=== PATIENT | male | born 1930 | race Caucasian/White ===

== ENCOUNTER → 2016-10-16 | Outpatient (CLI) | payer MEDICARE ==
--- NOTE | 2016-10-16 13:51 | US ---
EXAMINATION TYPE: US venous doppler duplex LE DATE OF EXAM: 10/16/2016 11:19 AM COMPARISON: NONE CLINICAL HISTORY: R60.0 Pain and Edema Lower Extremities. No h/o dvt SIDE PERFORMED: Bilateral TECHNIQUE: The lower extremity deep venous system is examined utilizing real time linear array sonog veronica with graded compression, doppler sonography and color-flow sonography. VESSELS IMAGED: External Iliac Vein (EIV) Common Femoral Vein Deep Femoral Vein Greater Saphenous Vein * Femoral Vein Popliteal Vein Small Saphenous Vein * Proximal Calf Veins (* superficial vessels) Right Leg: Appears negative for DVT, complex fluid collection noted medially anterior to vessels, pr obable popliteal cyst Left Leg: Appears negative for DVT, complex fluid collection noted medially anterior to vessels, pro bable popliteal cyst tech impression given to office @ 11:30 IMPRESSION: 1. Lower extremities negative for deep venous thrombosis. 2. Bilateral popliteal cysts which appear complex.
== END | disposition home or self-care (01) ==
LOC: RADUSWWP 10:47
PROVIDERS: ATTEND Family Medicine
DX: M71.22 Synovial cyst of popliteal space [Baker], left knee (principal); M71.21 Synovial cyst of popliteal space [Baker], right knee; Z88.0 Allergy status to penicillin; Z88.1 Allergy status to other antibiotic agents
CPT/HCPCS: 93970

== ENCOUNTER 2018-03-05 08:18 | Day surgery (SDC) | payer MEDICARE ==
[2018-02-28 14:09] VITALS: BMI 26.2
--- NOTE | 2018-03-04 22:42 | P.GSHP ---
History of Present Illness H&P Date: 03/05/18 CHIEF COMPLAINT: History of colon cancer HISTORY OF PRESENT ILLNESS: The patient is a 87-year-old male who presents with past history of colon cancer. Lower endoscopy was offered for further evaluation and management. PAST MEDICAL HISTORY: Please see list. PAST SURGICAL HISTORY: Please see list. MEDICATIONS: Please see list. ALLERGIES: Please see list. SOCIAL HISTORY: No illicit drug use FAMILY HISTORY: No reports of Crohn disease or ulcerative colitis. REVIEW OF ORGAN SYSTEMS: CONSTITUTIONAL: No reports of fevers or chills. PHYSICAL EXAM: VITAL SIGNS: Stable GENERAL: Well-developed pleasant in no acute distress. HEENT: No scleral icterus. Extraocular movements grossly intact. Moist buccal mucosa. NECK: Supple without lymphadenopathy. CHEST: Unlabored respirations. Equal bilateral excursions. CARDIOVASCULAR: Regular rate and rhythm. Distal 2+ pulses. ABDOMEN: Soft, nontender, nondistended. MUSCULOSKELETAL: No clubbing, cyanosis, or edema. ASSESSMENT: 1. History of colon cancer. PLAN: 1. Recommend proceeding with a lower endoscopy Past Medical History Past Medical History: Atrial Fibrillation, Cancer, GERD/Reflux, Hyperlipidemia, Hypertension, Osteoarthritis (OA), Prostate Disorder Additional Past Medical History / Comment(s): Pancreatitis, prostate CA > 10 yrs ago, COLON CA History of Any Multi-Drug Resistant Organisms: None Reported Past Surgical History: Bowel Resection, Pacemaker, Prostate Surgery Additional Past Surgical History / Comment(s): BILATERAL CATARACTS. PROSTATECTOMY, Past Anesthesia/Blood Transfusion Reactions: No Reported Reaction Type of Cardiac Device: Permanent Pacemaker Device Placement Date:: 12-12-15 Smoking Status: Former smoker - Past Family History Father Family Medical History: Cancer Additional Family Medical History / Comment(s): prostate Brother(s) Family Medical History: Cancer Additional Family Medical History / Comment(s): Prostate Medications and Allergies Home Medications Medication Instructions Recorded Confirmed Type Aspirin EC [Ecotrin Low Dose] 81 mg PO HS 09/25/14 02/28/18 History Atorvastatin Calcium [Lipitor] 10 mg PO HS 09/25/14 02/28/18 History Elastat 0.05% 1 drop BOTH EYES BID 09/25/14 02/28/18 History Ranitidine HCl [Zantac] 150 mg PO BID 09/25/14 02/28/18 History Cholecalciferol [Vitamin D3] 1,000 unit PO DAILY@1200 05/09/15 02/28/18 History Multivitamin [Men's Multi-Vitamin] 1 tab PO DAILY 05/09/15 02/28/18 History [place]-3 Fatty Acids/Fish Oil [Fish 1 cap PO DAILY 05/09/15 02/28/18 History Oil 1,000 mg Softgel] Cranberry Fruit Extract [Cranberry] 500 mg PO DAILY 11/10/15 02/28/18 History Edoxaban Tosylate [Savaysa] 60 mg PO QAM 11/10/15 02/28/18 History Lisinopril [Zestril] 5 mg PO BID 11/10/15 02/28/18 History Metoprolol Succinate [Toprol XL] 100 mg PO QAM 11/10/15 02/28/18 History Spironolactone [Aldactone] 25 mg PO QAM 11/10/15 02/28/18 History Furosemide 20 mg PO QAM 12/07/15 02/28/18 History Allergies Allergy/AdvReac Type Severity Reaction Status Date / Time Penicillins Allergy Rash/Hives Verified 02/28/18 14:12
[~2018-03-05 08:18] MED LIST: LACTATED RINGERS 1,000 ML IV SCH
[2018-03-05 08:50] VITALS: TEMP 98.9
[2018-03-05] MEDS ORDERED: LIDOCAINE 1% 20 ML VIAL (10MG/ML) FOR IV START INTRADERMA ONE (09:05)
[2018-03-05] MEDS ORDERED: LIDOCAINE 1% INJ 10MG/ML (20 ML MDV) ONE (09:19)
[2018-03-05] MEDS ORDERED: PROPOFOL 10 MG/ML 20 ML VIAL IV ONE (09:19)
--- NOTE | 2018-03-05 09:49 | P.PCN ---
Date of Procedure: 03/05/18 Description of Procedure: PREOPERATIVE DIAGNOSIS: Personal history of right colon cancer POSTOPERATIVE DIAGNOSIS: Personal history of right colon cancer External prolapsed hemorrhoids, grade 3 OPERATION: Colonoscopy to the enterocolic anastomosis SURGEON: Aggie Tejeda MD. ANESTHESIA: MAC. INDICATIONS: The patient is a 87-year-old male who presents . with past history of colon cancer and right hemicolectomy. Benefits and risks were described and informed consent was obtained. DESCRIPTION OF PROCEDURE: The patient had undergone Gatorade, MiraLAX and Dulcolax prep. He had been brought into the operating room and laid in the left lateral decubitus position. The prostate was smooth and without abnormality. After adequate intravenous sedation, the rectum was examined with 2% lidocaine jelly. External hemorrhoids were encountered. The rectal tone was within normal limits. No lesions were palpated in the rectal vault. An Olympus colonoscope was advanced to the ileocolic anastomosis was viewed. The prep was excellent with clear visualization of the mucosal folds. No evidence of focal colitis was found. At the proximal transverse colon, a flat villous lesion was cold biopsy forceps. Retroflexion of the scope demonstrated grade 1 internal hemorrhoids without active bleeding or inflammation. The colon was desufflated. The patient had tolerated the procedure well. Withdrawal time was over 6 minutes. FINDINGS: External prolapsed hemorrhoids, grade 3. No scattered diverticulosis was encountered. No arteriovenous malformations. At the proximal transverse colon, a flat villous lesion was cold biopsy forceps. Tortuous sigmoid colon requiring abdominal wall pressure. No focal colitis. RECOMMENDATIONS: Recommend colonoscopy in 5 years, 2022 otherwise as needed Plan - Discharge Summary New Discharge Prescriptions: No Action Ranitidine HCl [Zantac] 150 mg PO BID Atorvastatin Calcium [Lipitor] 10 mg PO HS Aspirin EC [Ecotrin Low Dose] 81 mg PO HS Elastat 0.05% 1 drop BOTH EYES BID Cholecalciferol [Vitamin D3] 1,000 unit PO DAILY@1200 [place]-3 Fatty Acids/Fish Oil [Fish Oil 1,000 mg Softgel] 1 cap PO DAILY Multivitamin [Men's Multi-Vitamin] 1 tab PO DAILY Edoxaban Tosylate [Savaysa] 60 mg PO QAM Spironolactone [Aldactone] 25 mg PO QAM Metoprolol Succinate [Toprol XL] 100 mg PO QAM Lisinopril [Zestril] 5 mg PO BID Cranberry Fruit Extract [Cranberry] 500 mg PO DAILY Furosemide 20 mg PO QAM Discharge Medication List Aspirin EC [Ecotrin Low Dose] 81 mg PO HS 09/25/14 [History] Atorvastatin Calcium [Lipitor] 10 mg PO HS 09/25/14 [History] Elastat 0.05% 1 drop BOTH EYES BID 09/25/14 [History] Ranitidine HCl [Zantac] 150 mg PO BID 09/25/14 [History] Cholecalciferol [Vitamin D3] 1,000 unit PO DAILY@1200 05/09/15 [History] Multivitamin [Men's Multi-Vitamin] 1 tab PO DAILY 05/09/15 [History] [place]-3 Fatty Acids/Fish Oil [Fish Oil 1,000 mg Softgel] 1 cap PO DAILY [History] Cranberry Fruit Extract [Cranberry] 500 mg PO DAILY 11/10/15 [History] Edoxaban Tosylate [Savaysa] 60 mg PO QAM 11/10/15 [History] Lisinopril [Zestril] 5 mg PO BID 11/10/15 [History] Metoprolol Succinate [Toprol XL] 100 mg PO QAM 11/10/15 [History] Spironolactone [Aldactone] 25 mg PO QAM 11/10/15 [History] Furosemide 20 mg PO QAM 12/07/15 [History]
[2018-03-05 10:06] VITALS: BP 110/57; PULSE 62; RESP 18
== END 2018-03-05 10:28 | disposition home or self-care (01) ==
LOC: ORWHC2ENDO 08:18
PROVIDERS: ATTEND Surgery Plastic and Reconstructive Surgery
DX: Z12.11 Encounter for screening for malignant neoplasm of colon (principal); D12.3 Benign neoplasm of transverse colon; Z85.038 Personal history of other malignant neoplasm of large intestine; Z98.0 Intestinal bypass and anastomosis status; Z90.49 Acquired absence of other specified parts of digestive tract; K64.2 Third degree hemorrhoids; Q43.8 Other specified congenital malformations of intestine; Z85.46 Personal history of malignant neoplasm of prostate; Z85.07 Personal history of malignant neoplasm of pancreas; K21.9 Gastro-esophageal reflux disease without esophagitis; I48.91 Unspecified atrial fibrillation; Z95.0 Presence of cardiac pacemaker; E78.5 Hyperlipidemia, unspecified; I10 Essential (primary) hypertension; M19.90 Unspecified osteoarthritis, unspecified site; Z87.891 Personal history of nicotine dependence; Z79.02 Long term (current) use of antithrombotics/antiplatelets; Z79.82 Long term (current) use of aspirin; Z79.899 Other long term (current) drug therapy; Z88.0 Allergy status to penicillin
CPT/HCPCS: 88305; 45380; J2001; J2704

== ENCOUNTER 2018-06-20 09:24 | Emergency (ER) | payer MEDICARE ==
--- NOTE | 2018-06-20 10:21 | XR ---
EXAMINATION TYPE: XR chest 2V DATE OF EXAM: 06/20/2018 COMPARISON: 12/13/2015 HISTORY: Shortness of breath TECHNIQUE: Frontal and lateral views of the chest are obtained. FINDINGS: Scattered senescent parenchymal changes noted. Hyperinflation compatible with COPD. No evidence for infiltrate. No evidence for atelectasis. Heart size is stable. Mediastinal structures are stable and grossly unremarkable. No evidence for hilar prominence. Degenerative changes dorsal spine. IMPRESSION: 1. No evidence for acute pulmonary disease.
[2018-06-20 10:53] LABS: Appearance,Urine Clear (Clear); Bilirubin,Urine Negative (Negative); Blood,Urine Negative (Negative); Color,Urine Yellow; Glucose,Urine (UA) Negative (Negative); Ketones,Urine Negative (Negative); Leukocyte Esterase,Urine Negative (Negative); Nitrite,Urine Negative (Negative); Protein,Urine Negative (Negative); Specific Gravity,Urine 1.011 (1.001-1.035); Urobilinogen,Urine <2.0 mg/dL (<2.0)
--- NOTE | 2018-06-20 11:04 | ED ---
General Adult HPI - General Chief complaint: Upper Respiratory Infection Stated complaint: Cough Time Seen by Provider: 06/20/18 09:48 Source: patient, RN notes reviewed Mode of arrival: ambulatory Limitations: no limitations - History of Present Illness Initial comments: Patient 88-year-old male presented to the emergency room today with chief complaint of increased cough congestion over the past week. Does admit to yellow sputum production. Patient mitts that his neck and with sleep last night between coughing and also having to run to the bathroom to urinate. He does admit that he had a prostatectomy done for prostate cancer in the past. Patient states that he has had problems with increased urination in the past. Patient states typically depends on how much she drinks area patient denies any other complaints or symptoms. Patient denies any recent fever, chills, shortness of breath, chest pain, back pain, abdominal pain, dysuria, hematuria, numbness or tingling, headaches or visual changes, or any other complaints. - Related Data Home Medications Medication Instructions Recorded Confirmed Aspirin EC [Ecotrin Low Dose] 81 mg PO MOWEFR@2100 09/25/14 06/20/18 Atorvastatin Calcium [Lipitor] 10 mg PO HS 09/25/14 06/20/18 Ranitidine HCl [Zantac] 150 mg PO BID 09/25/14 06/20/18 Cholecalciferol [Vitamin D3] 1,000 unit PO PC-LUNCH 05/09/15 06/20/18 Multivitamin [Men's Multi-Vitamin] 1 tab PO PC-LUNCH 05/09/15 06/20/18 [place]-3 Fatty Acids/Fish Oil [Fish 1 cap PO PC-LUNCH 05/09/15 06/20/18 Oil 1,000 mg Softgel] Cranberry Fruit Extract [Cranberry] 500 mg PO PC-LUNCH 11/10/15 06/20/18 Edoxaban Tosylate [Savaysa] 60 mg PO DIRECTED 11/10/15 06/20/18 Lisinopril [Zestril] 5 mg PO BID 11/10/15 06/20/18 Metoprolol Succinate [Toprol XL] 100 mg PO QAM 11/10/15 06/20/18 Spironolactone [Aldactone] 25 mg PO QAM 11/10/15 06/20/18 Furosemide 20 mg PO QAM 12/07/15 06/20/18 Rivaroxaban [Xarelto] 15 mg PO DIRECTED 06/20/18 06/20/18 Previous Rx's Medication Instructions Recorded Azithromycin [Zithromax Z-pack] 0 mg PO DIRECTED #6 tab 06/20/18 Allergies Allergy/AdvReac Type Severity Reaction Status Date / Time Penicillins Allergy Rash/Hives Verified 06/20/18 10:04 Review of Systems ROS Statement: Those systems with pertinent positive or pertinent negative responses have been documented in the HPI. ROS Other: All systems not noted in ROS Statement are negative. Past Medical History Past Medical History: Atrial Fibrillation, Cancer, GERD/Reflux, Hyperlipidemia, Hypertension, Osteoarthritis (OA), Prostate Disorder Additional Past Medical History / Comment(s): Pancreatitis, prostate CA > 10 yrs ago, COLON CA History of Any Multi-Drug Resistant Organisms: None Reported Past Surgical History: Bowel Resection, Pacemaker, Prostate Surgery Additional Past Surgical History / Comment(s): BILATERAL CATARACTS. PROSTATECTOMY, Past Anesthesia/Blood Transfusion Reactions: No Reported Reaction Type of Cardiac Device: Permanent Pacemaker Device Placement Date:: 12-12-15 Past Psychological History: No Psychological Hx Reported Smoking Status: Former smoker Past Alcohol Use History: None Reported Past Drug Use History: None Reported - Past Family History Father Family Medical History: Cancer Additional Family Medical History / Comment(s): prostate Brother(s) Family Medical History: Cancer Additional Family Medical History / Comment(s): Prostate General Exam - General Exam Comments Initial Comments: General: The patient is awake and alert, in no distress, and does not appear acutely ill. Eye: There is normal conjunctiva bilaterally. No signs of icterus. Ears, nose, mouth and throat: There are moist mucous membranes and no oral lesions. Neck: The neck is supple Cardiovascular: There is a regular rate and rhythm. No murmur, rub or gallop is appreciated. Respiratory: Lungs are clear to auscultation, respirations are non-labored, breath sounds are equal. No wheezes, stridor, rales, or rhonchi. Gastrointestinal: Admits soft nontender. Musculoskeletal: Normal ROM, no tenderness. Neurological: A&O x 3. CN II-XII intact, There are no obvious motor or sensory deficits. Coordination appears grossly intact. Speech is normal. Skin: Skin is warm and dry and no rashes or lesions are noted. Psychiatric: Cooperative, appropriate mood & affect, normal judgment. Limitations: no limitations Course Vital Signs 06/20/18 06/20/18 06/20/18 09:32 09:44 11:23 Temperature 97.5 F L Pulse Rate 77 59 L Respiratory 20 22 20 Rate Blood Pressure 146/62 126/51 O2 Sat by Pulse 97 96 Oximetry Medical Decision Making - Medical Decision Making Patient reexamined at this time shows no signs of distress. Patient's resting comfortable. His vitals are stable. Urinalysis was reviewed negative for any acute abnormality. Influenza test negative. Patient's chest x-ray was reviewed and did show evidence of more prominent nodule in the right upper lung. Is advised close follow-up the family doctor over the next 2 days will be started on antibiotics cover for bronchitis infection. Advised return if any symptoms increase or worsen or for any other concerns. - Lab Data Lab Results 06/20/18 06/20/18 Range/Units 10:30 10:50 Urine Color Yellow Urine Appearance Clear (Clear) Urine pH 5.0 (5.0-8.0) Ur Specific [place] 1.011 (1.001-1.035) Urine Protein Negative (Negative) Urine Glucose (UA) Negative (Negative) Urine Ketones Negative (Negative) Urine Blood Negative (Negative) Urine Nitrite Negative (Negative) Urine Bilirubin Negative (Negative) Urine Urobilinogen <2.0 (<2.0) mg/dL Ur Leukocyte Esterase Negative (Negative) Influenza Type A RNA Not Detected (Not Detectd) Influenza Type B (PCR) Not Detected (Not Detectd) Disposition Clinical Impression: Acute bronchitis Disposition: HOME SELF-CARE Condition: Good Instructions: Acute Bronchitis (ED) Additional Instructions: Please use medication as discussed. Please follow-up with family doctor in the next 2 days. Please return to emergency room if the symptoms increase or worsen or for any other concerns. Prescriptions: Azithromycin [Zithromax Z-pack] 0 mg PO DIRECTED #6 tab Is patient prescribed a controlled substance at d/c from ED?: No Referrals: Lobo Burch MD [Primary Care Provider] - 1-2 days Time of Disposition: 11:49
[2018-06-20 11:24] VITALS: RESP 20
[2018-06-20 12:11] VITALS: BP 125/85; PULSE 68; TEMP 98.1
== END 2018-06-20 12:05 | disposition home or self-care (01) ==
LOC: EC 09:24
DX: J20.9 Acute bronchitis, unspecified (principal); R91.1 Solitary pulmonary nodule; I48.91 Unspecified atrial fibrillation; K21.9 Gastro-esophageal reflux disease without esophagitis; E78.5 Hyperlipidemia, unspecified; I10 Essential (primary) hypertension; Z85.038 Personal history of other malignant neoplasm of large intestine; Z85.46 Personal history of malignant neoplasm of prostate; Z87.891 Personal history of nicotine dependence; Z79.82 Long term (current) use of aspirin; Z79.01 Long term (current) use of anticoagulants; Z79.899 Other long term (current) drug therapy; Z88.0 Allergy status to penicillin; Z95.0 Presence of cardiac pacemaker; Z90.79 Acquired absence of other genital organ(s)
CPT/HCPCS: 71046; 81003; 87502; 99283

== ENCOUNTER 2018-06-23 20:43 | Inpatient (IN) | payer MEDICARE ==
--- NOTE | 2018-06-23 22:17 | XR ---
EXAMINATION TYPE: XR knee 4V RT DATE OF EXAM: 06/23/2018 COMPARISON: NONE HISTORY: Knee pain TECHNIQUE: 4 views FINDINGS: There is moderate narrowing of the joint space is associated lateral joint space. There is mild genu valgus. There is no sign of joint effusion. There is spurring on the patella. There is spur ring of the femoral and tibial condyles. There is vascular calcification. IMPRESSION: Moderately severe osteoarthritis. No fracture seen.
[2018-06-23] MEDS ORDERED: MORPHINE SULFATE 4 MG/ML SYRINGE IVP PRN (22:18)
--- NOTE | 2018-06-23 22:22 | XR ---
EXAMINATION TYPE: XR Hip RT and AP Pelvis DATE OF EXAM: 06/23/2018 COMPARISON: NONE HISTORY: Fall. Hip pain TECHNIQUE: A single AP view of the pelvis is obtained. Two views of the right hip are obtained. FINDINGS: There is an acute intertrochanteric fracture of the right femur. There is coxa vera deformi ty. The pelvic ring is intact. There are multiple surgical clips in the pelvis. Proximal left femur i s intact. Sacroiliac joints appear intact. There is displacement of the fragments almost 5 cm. IMPRESSION: Acute displaced intertrochanteric fracture right femur.
--- NOTE | 2018-06-23 22:38 | XR ---
EXAMINATION TYPE: XR chest 1V DATE OF EXAM: 06/23/2018 COMPARISON: 06/20/2018 HISTORY: Fall. Hip fracture TECHNIQUE: Single frontal view of the chest is obtained. FINDINGS: Heart is enlarged. There is no heart failure. Lungs are clear of consolidation. There is a theromatous aorta. There is left axillary pacemaker with the lead tips over the right ventricle. IMPRESSION: No active cardiopulmonary disease. No change. Mild cardiomegaly.
[2018-06-23 23:11] LABS: Basophils # (A) 0.1 k/uL (0-0.2); Basophils % (A) 0 %; Eosinophils # (A) 0.2 k/uL (0-0.7); Eosinophils % (A) 1 %; HCT 36.6 % (39.0-53.0); HGB 11.9 gm/dL (13.0-17.5); Lymphocytes # (A) 1.2 k/uL (1.0-4.8); Lymphocytes % (A) 6 %; MCH 32.3 pg (25.0-35.0); MCHC 32.6 g/dL (31.0-37.0); MCV 98.9 fL (80.0-100.0); Mean Platelet Volume 6.9; Monocytes # (A) 0.6 k/uL (0-1.0); Monocytes % (A) 3 %; Neutrophils # (A) 18.6 k/uL (1.3-7.7); Neutrophils % (A) 90 %; Platelet Count 197 k/uL (150-450); RDW 13.6 % (11.5-15.5); WBC 20.8 k/uL (3.8-10.6)
[2018-06-23 23:17] LABS: INR 1.2 (<1.2); Prothrombin Time 12.4 sec (9.0-12.0)
[2018-06-23 23:27] LABS: Calcium 9.4 mg/dL (8.4-10.2); Potassium 5.7 mmol/L (3.5-5.1)
[2018-06-23] MEDS ORDERED: SODIUM CHLORIDE 0.9% 500 ML IV STA (23:30)
[2018-06-23] MEDS ORDERED: NALOXONE 0.4 MG/ML 1 ML VIAL IV PRN (23:42)
--- NOTE | 2018-06-23 23:42 | ED ---
General Adult HPI - General Chief complaint: Extremity Injury, Lower Stated complaint: Hip Pain Source: patient Mode of arrival: EMS Limitations: no limitations - Related Data Home Medications Medication Instructions Recorded Confirmed Aspirin EC [Ecotrin Low Dose] 81 mg PO MOWEFR@2100 09/25/14 06/23/18 Atorvastatin Calcium [Lipitor] 10 mg PO HS 09/25/14 06/23/18 Ranitidine HCl [Zantac] 150 mg PO BID 09/25/14 06/23/18 Cholecalciferol [Vitamin D3] 1,000 unit PO PC-LUNCH 05/09/15 06/23/18 Multivitamin [Men's Multi-Vitamin] 1 tab PO PC-LUNCH 05/09/15 06/23/18 [place]-3 Fatty Acids/Fish Oil [Fish 1 cap PO PC-LUNCH 05/09/15 06/23/18 Oil 1,000 mg Softgel] Cranberry Fruit Extract [Cranberry] 500 mg PO PC-LUNCH 11/10/15 06/23/18 Lisinopril [Zestril] 5 mg PO BID 11/10/15 06/23/18 Metoprolol Succinate [Toprol XL] 100 mg PO QAM 11/10/15 06/23/18 Spironolactone [Aldactone] 25 mg PO QAM 11/10/15 06/23/18 Furosemide 20 mg PO QAM 12/07/15 06/23/18 Edoxaban Tosylate [Savaysa] 60 mg PO DAILY 06/23/18 06/23/18 Sulfamethox-Tmp 800-160Mg [Bactrim 1 tab PO Q12H 06/23/18 06/23/18 DS 800-160 mg] Allergies Allergy/AdvReac Type Severity Reaction Status Date / Time Penicillins Allergy Rash/Hives Verified 06/23/18 21:24 Review of Systems ROS Statement: Those systems with pertinent positive or pertinent negative responses have been documented in the HPI. ROS Other: All systems not noted in ROS Statement are negative. Past Medical History Past Medical History: Atrial Fibrillation, Cancer, GERD/Reflux, Hyperlipidemia, Hypertension, Osteoarthritis (OA), Prostate Disorder Additional Past Medical History / Comment(s): Pancreatitis, prostate CA > 10 yrs ago, COLON CA History of Any Multi-Drug Resistant Organisms: None Reported Past Surgical History: Bowel Resection, Pacemaker, Prostate Surgery Additional Past Surgical History / Comment(s): BILATERAL CATARACTS. PROSTATECTOMY, Past Anesthesia/Blood Transfusion Reactions: No Reported Reaction Type of Cardiac Device: Permanent Pacemaker Device Placement Date:: 12-12-15 Past Psychological History: No Psychological Hx Reported Smoking Status: Former smoker Past Alcohol Use History: None Reported Past Drug Use History: None Reported - Past Family History Father Family Medical History: Cancer Additional Family Medical History / Comment(s): prostate Brother(s) Family Medical History: Cancer Additional Family Medical History / Comment(s): Prostate General Exam Limitations: no limitations Course Vital Signs 06/23/18 20:50 Temperature 98.0 F Pulse Rate 60 Respiratory 16 Rate Blood Pressure 122/54 O2 Sat by Pulse 98 Oximetry Medical Decision Making - Medical Decision Making Dictation was produced using [employer] dictation software. please excuse any grammatical, word or spelling errors. Chief Complaint: 88-year-old male past medical history of A. fib, cancer, dyslipidemia, hypertension presents with right hip pain. History of Present Illness: Patient is a 88-year-old male. He has multiple comorbidities. Patient is on no anticoagulation medications. CT was recommended the stairs earlier today when he felt a pop in his hip. States that he felt immediate pain to his right hip. He called out for his family members who help sit him down. EMS was called and transferred to the emergency department. Patient denies any pain except in his hip. He denies any fall. The ROS documented in this emergency department record has been reviewed and confirmed by me. Those systems with pertinent positive or negative responses have been documented in the HPI. All other systems are other negative and/or noncontributory. PHYSICAL EXAM: General Impression: Alert and oriented x3, not in acute distress HEENT: Normocephalic atraumatic, extra-ocular movements intact, pupils equal and reactive to light bilaterally, mucous membranes moist. Cardiovascular: Heart regular rate and rhythm, S1&S2 audible, no murmurs, rubs or gallops Chest: Lungs clear to auscultation bilaterally, no rhonchi, no wheeze, no rales Abdomen: Bowel sounds present, abdomen soft, non-tender, non-distended, no organomegaly Musculoskeletal: Pulses present and equal in all extremities, no peripheral edema, shortened and externally rotated right lower extremity with fullness to the right hip area Motor: Power 5/5 bilaterally, no focal deficits noted Neurological: CN II-XII grossly intact, no focal motor or sensory deficits noted Skin: Intact with no visualized rashes Psych: Normal affect and mood ED course: 88-year-old male with right hip pain. Vital signs upon arrival are within acceptable limits. Laboratory evaluation shows leukocytosis of 20.8 likely secondary to stress. Coag panel is unremarkable. Patient's potassium 5.7. Rest of labs are unremarkable. Chest x-ray is unremarkable. Hip x-ray shows acute displaced intertrochanteric fracture of the right femur. Knee x- ray is unremarkable. Given trivial mechanism of injury there is suspicion of pathologic fracture. Discussed patient case with orthopedic doctor professional nurse Dr. Vazquez who will be admitting the patient. He requests nothing by mouth at midnight. Discussed patient case with Dr. Goss who is aware of patient and will assist medical management. EKG is unremarkable. EKG interpretation: Ventricular rate 60, paced rhythm, VT interval, QS 134, QTC 462. No VT prolongation, no QTC prolongation, no ST or T-wave changes noted. Overall, this EKG is unremarkable - Lab Data Result diagrams: 06/23/18 22:58 06/23/18 22:58 Lab Results 06/23/18 06/23/18 06/23/18 Range/Units 22:58 22:58 22:58 WBC 20.8 H (3.8-10.6) k/uL RBC 3.70 L (4.30-5.90) m/uL Hgb 11.9 L (13.0-17.5) gm/dL Hct 36.6 L (39.0-53.0) % MCV 98.9 (80.0-100.0) fL MCH 32.3 (25.0-35.0) pg MCHC 32.6 (31.0-37.0) g/dL RDW 13.6 (11.5-15.5) % Plt Count 197 (150-450) k/uL Neutrophils % 90 % Lymphocytes % 6 % Monocytes % 3 % Eosinophils % 1 % Basophils % 0 % Neutrophils # 18.6 H (1.3-7.7) k/uL Lymphocytes # 1.2 (1.0-4.8) k/uL Monocytes # 0.6 (0-1.0) k/uL Eosinophils # 0.2 (0-0.7) k/uL Basophils # 0.1 (0-0.2) k/uL PT 12.4 H (9.0-12.0) sec INR 1.2 H (<1.2) Sodium 134 L (137-145) mmol/L Potassium 5.7 H (3.5-5.1) mmol/L Chloride 102 (98-107) mmol/L Carbon Dioxide 22 (22-30) mmol/L Anion Gap 10 mmol/L BUN 36 H (9-20) mg/dL Creatinine 1.67 H (0.66-1.25) mg/dL Est GFR (CKD-EPI)AfAm 41 (>60 ml/min/1.73 sqM) Est GFR (CKD-EPI)NonAf 36 (>60 ml/min/1.73 sqM) Glucose 134 H (74-99) mg/dL Calcium 9.4 (8.4-10.2) mg/dL Disposition Clinical Impression: Fracture of hip Disposition: ADMITTED IP TO THIS HOSP Condition: Fair Referrals: Lobo Burch MD [Primary Care Provider] - 1-2 days Decision Time: 23:42
[2018-06-24 00:31] VITALS: BMI 25.5
[2018-06-24] MEDS: SODIUM CHLORIDE 0.9% 1,000 ML IV SCH ×2 (01:03→14:49)
[2018-06-24 04:46] LABS: Appearance,Urine Clear (Clear); Bilirubin,Urine Negative (Negative); Blood,Urine Negative (Negative); Color,Urine Yellow; Glucose,Urine (UA) Negative (Negative); Ketones,Urine Negative (Negative); Leukocyte Esterase,Urine Negative (Negative); Nitrite,Urine Negative (Negative); PH, Urine 5.5 (5.0-8.0); Protein,Urine Negative (Negative); Specific Gravity,Urine 1.016 (1.001-1.035); Urobilinogen,Urine <2.0 mg/dL (<2.0)
[2018-06-24] MEDS: MORPHINE SULFATE 4 MG/ML SYRINGE IV PRN ×2 (07:16→17:06)
[2018-06-24] MEDS: PANTOPRAZOLE 40 MG/10 ML VIAL IV SCH (07:16)
[2018-06-24] MEDS ORDERED: FUROSEMIDE 20 MG TAB PO SCH (09:00)
--- NOTE | 2018-06-24 09:58 | P.HPOR ---
History of Present Illness H&P Date: 06/24/18 Chief Complaint: Right hip fracture Patient is an 88-year-old male past medical history of atrial fibrillation with pacemaker on Savaysa, history of colon cancer, hyperlipidemia, hypertension, osteoarthritis presented to the ER last night with complaints of right hip pain. Patient states he was walking up his stairs at home when he turned suddenly and felt a pop and a crack in his hip. He states he could not continue walking and had to call to his friend for help, who helped him down on the stairs. Patient then immediately called EMS for help, the patient was brought to [facility] ER for further evaluation and treatment. On presentation to the ER the patient was found to have a right displaced subtrochanteric femur fracture. The patient also noted right knee pain, however currently patient states that this is a chronic problem and he sees Dr. Johnathan Washington as an outpatient for osteoarthritis. Xrays in the ER showed severe osteoarthritis, and no fractures. Patient denies pain anywhere else in the body. He notes his pain in his right hip is well-controlled currently. Last dose of Savaysa was yesterday morning. Denies chest pain, shortness of breath, nausea, vomiting, tingling or numbness in the right lower extremity, fevers, or chills. Review of Systems Please see HPI. Past Medical History Past Medical History: Atrial Fibrillation, Cancer, GERD/Reflux, Hyperlipidemia, Hypertension, Osteoarthritis (OA), Prostate Disorder Additional Past Medical History / Comment(s): Pancreatitis, prostate CA > 10 yrs ago, COLON CA History of Any Multi-Drug Resistant Organisms: None Reported Past Surgical History: Bowel Resection, Pacemaker, Prostate Surgery Additional Past Surgical History / Comment(s): BILATERAL CATARACTS. PROSTATECTOMY, Past Anesthesia/Blood Transfusion Reactions: No Reported Reaction Type of Cardiac Device: Permanent Pacemaker Device Placement Date:: 12-12-15 Past Psychological History: No Psychological Hx Reported Smoking Status: Former smoker Past Alcohol Use History: None Reported Additional Past Alcohol Use History / Comment(s): SMOKING: QUIT 1978 FOR 34 YRS , PPD: 1-3. Past Drug Use History: None Reported Additional Drug Use History / Comment(s): 1-3 scotch or wine daily - Past Family History Father Family Medical History: Cancer Additional Family Medical History / Comment(s): prostate Brother(s) Family Medical History: Cancer Additional Family Medical History / Comment(s): Prostate Medications and Allergies Home Medications Medication Instructions Recorded Confirmed Type Aspirin EC [Ecotrin Low Dose] 81 mg PO MOWEFR@2100 09/25/14 06/23/18 History Atorvastatin Calcium [Lipitor] 10 mg PO HS 09/25/14 06/23/18 History Ranitidine HCl [Zantac] 150 mg PO BID 09/25/14 06/23/18 History Cholecalciferol [Vitamin D3] 1,000 unit PO PC-LUNCH 05/09/15 06/23/18 History Multivitamin [Men's Multi-Vitamin] 1 tab PO PC-LUNCH 05/09/15 06/23/18 History [place]-3 Fatty Acids/Fish Oil [Fish 1 cap PO PC-LUNCH 05/09/15 06/23/18 History Oil 1,000 mg Softgel] Cranberry Fruit Extract [Cranberry] 500 mg PO PC-LUNCH 11/10/15 06/23/18 History Lisinopril [Zestril] 5 mg PO BID 11/10/15 06/23/18 History Metoprolol Succinate [Toprol XL] 100 mg PO QAM 11/10/15 06/23/18 History Spironolactone [Aldactone] 25 mg PO QAM 11/10/15 06/23/18 History Furosemide 20 mg PO QAM 12/07/15 06/23/18 History Edoxaban Tosylate [Savaysa] 60 mg PO DAILY 06/23/18 06/23/18 History Sulfamethox-Tmp 800-160Mg [Bactrim 1 tab PO Q12H 06/23/18 06/23/18 History DS 800-160 mg] Allergies Allergy/AdvReac Type Severity Reaction Status Date / Time Penicillins Allergy Rash/Hives Verified 06/23/18 21:24 Physical Examination On examination, the patient is lying in bed in no acute distress. The patient is alert and oriented 3. On inspection, the right lower extremity is externally rotated. There is no swelling, ecchymosis, erythema, or discoloration of the skin of the right lower extremity. No open wounds or lacerations. Patient is tender to palpation of the anterior hip and groin area. Patient is able to perform full range of motion of the right ankle and toes. Right dorsalis pedis pulse and posterior tibial pulse +2. Brisk capillary refill of right toes. Neurovascular is intact to the right lower extremity. Sensation is intact to light touch of the right lower extremity. On inspection of the left lower extremity, there are no lacerations, open wounds , erythema, ecchymosis, or swelling. Left dorsalis pedis pulse and posterior tibial pulse +2. Patient is able to perform full range of motion of left ankle and toes. On inspection of the bilateral upper extremities, there are no lacerations, open wounds, erythema, ecchymosis, or swelling. Results X-ray of the right knee 06/23/18: Osteoarthritis, no fracture seen. X-ray of the right hip 06/23/18: Displaced subtrochanteric fracture right femur. - Labs Labs: Abnormal Lab Results - Last 24 Hours (Table) 06/23/18 06/23/18 06/23/18 Range/Units 22:58 22:58 22:58 WBC 20.8 H (3.8-10.6) k/uL RBC 3.70 L (4.30-5.90) m/uL Hgb 11.9 L (13.0-17.5) gm/dL Hct 36.6 L (39.0-53.0) % Neutrophils # 18.6 H (1.3-7.7) k/uL PT 12.4 H (9.0-12.0) sec INR 1.2 H (<1.2) Sodium 134 L (137-145) mmol/L Potassium 5.7 H (3.5-5.1) mmol/L BUN 36 H (9-20) mg/dL Creatinine 1.67 H (0.66-1.25) mg/dL Glucose 134 H (74-99) mg/dL 06/24/18 Range/Units 01:12 WBC (3.8-10.6) k/uL RBC (4.30-5.90) m/uL Hgb (13.0-17.5) gm/dL Hct (39.0-53.0) % Neutrophils # (1.3-7.7) k/uL PT (9.0-12.0) sec INR (<1.2) Sodium (137-145) mmol/L Potassium 5.3 H (3.5-5.1) mmol/L BUN (9-20) mg/dL Creatinine (0.66-1.25) mg/dL Glucose (74-99) mg/dL H & H 06/23/18 Range/Units 22:58 Hgb 11.9 L (13.0-17.5) gm/dL Hct 36.6 L (39.0-53.0) % Coagulation 06/23/18 Range/Units 22:58 INR 1.2 H (<1.2) Result Diagrams: 06/23/18 22:58 06/24/18 01:12 Assessment and Plan Assessment: Right displaced subtrochanteric femur fracture Plan: - We will plan on a long intramedullary nail of the right femur tomorrow with Dr. Vazquez, pending medical clearance and consent. - Strict non-weight bearing of the right lower extremity. Ice and elevate right hip for pain and swelling control. - Continue current pain management. Will defer post-operative anticoagulation to medicine. - NPO diet after midnight. - Patient discussed with Dr. Vazquez.
[2018-06-24] MEDS: METOPROLOL SUCCINATE (ER) 100 MG TAB.ER.24H PO SCH (10:15)
[2018-06-24] MEDS: CHOLECALCIFEROL 1,000 UNIT TAB PO SCH (10:15)
--- NOTE | 2018-06-24 10:37 | CT ---
EXAMINATION TYPE: CT femur RT wo con DATE OF EXAM: 06/24/2018 COMPARISON: X-ray 06/23/2018 HISTORY: Hip fracture CT DLP: 931 mGycm Automated exposure control for dose reduction was used. FINDINGS: There is a displaced fracture involving the right femoral neck Multilevel degenerative change of the lumbar spine with facet arthropathy. Surgical clips are seen. L arge area of soft tissue edema and hematoma suspected. Intramuscular structures appear to be thickene d which may be related to intramuscular hematoma. Other etiologies including mass not excluded. Lucen cy of the medullary cavity suggests possible pathologic fracture. Suprapatellar bursal fluid collecti ons seen and there is atherosclerotic change of the vasculature. IMPRESSION: DISPLACED RIGHT FEMORAL NECK FRACTURE WITH SUSPECTED BE PATHOLOGIC. LARGE AREA OF ABNORMAL SOFT TISSU E ATTENUATION SURROUNDING THE PROXIMAL FEMUR. COULD BE RELATED TO INTRAMUSCULAR AND SOFT TISSUE HEMAT JOSE ALBERTO. SOFT TISSUE MASS NOT EXCLUDED. FOLLOW-UP MRI RECOMMENDED.
--- NOTE | 2018-06-24 11:32 | P.CONS ---
History of Present Illness - History of Present Illness 88-year-old male is being evaluated for right hip fracture patient states he turned on the stairway heard a pop he is a right inner trochanter fracture suspected pathological from computed tomography scan. Patient has a history of atrial fibrillation with failure congestive heart failure diastolic dysfunction cardiomyopathy. Patient does have a pacemaker is on EKG 100% paced. Patient does have a history of colon cancer and prostate cancer. Noted to be in acute renal failure normal BUN/creatinine at family physician office Review of Systems Musculoskeletal: right: hip pain Past Medical History Past Medical History: Atrial Fibrillation, Cancer, GERD/Reflux, Hyperlipidemia, Hypertension, Osteoarthritis (OA), Prostate Disorder Additional Past Medical History / Comment(s): Pancreatitis, prostate CA > 10 yrs ago, COLON CA History of Any Multi-Drug Resistant Organisms: None Reported Past Surgical History: Bowel Resection, Pacemaker, Prostate Surgery Additional Past Surgical History / Comment(s): BILATERAL CATARACTS. PROSTATECTOMY, Past Anesthesia/Blood Transfusion Reactions: No Reported Reaction Type of Cardiac Device: Permanent Pacemaker Device Placement Date:: 12-12-15 Past Psychological History: No Psychological Hx Reported Smoking Status: Former smoker Past Alcohol Use History: None Reported Additional Past Alcohol Use History / Comment(s): SMOKING: QUIT 1978 FOR 34 YRS , PPD: 1-3. Past Drug Use History: None Reported Additional Drug Use History / Comment(s): 1-3 scotch or wine daily - Past Family History Father Family Medical History: Cancer Additional Family Medical History / Comment(s): prostate Brother(s) Family Medical History: Cancer Additional Family Medical History / Comment(s): Prostate Medications and Allergies Home Medications Medication Instructions Recorded Confirmed Type Aspirin EC [Ecotrin Low Dose] 81 mg PO MOWEFR@2100 09/25/14 06/23/18 History Atorvastatin Calcium [Lipitor] 10 mg PO HS 09/25/14 06/23/18 History Ranitidine HCl [Zantac] 150 mg PO BID 09/25/14 06/23/18 History Cholecalciferol [Vitamin D3] 1,000 unit PO PC-LUNCH 05/09/15 06/23/18 History Multivitamin [Men's Multi-Vitamin] 1 tab PO PC-LUNCH 05/09/15 06/23/18 History [place]-3 Fatty Acids/Fish Oil [Fish 1 cap PO PC-LUNCH 05/09/15 06/23/18 History Oil 1,000 mg Softgel] Cranberry Fruit Extract [Cranberry] 500 mg PO PC-LUNCH 11/10/15 06/23/18 History Lisinopril [Zestril] 5 mg PO BID 11/10/15 06/23/18 History Metoprolol Succinate [Toprol XL] 100 mg PO QAM 11/10/15 06/23/18 History Spironolactone [Aldactone] 25 mg PO QAM 11/10/15 06/23/18 History Furosemide 20 mg PO QAM 12/07/15 06/23/18 History Edoxaban Tosylate [Savaysa] 60 mg PO DAILY 06/23/18 06/23/18 History Sulfamethox-Tmp 800-160Mg [Bactrim 1 tab PO Q12H 06/23/18 06/23/18 History DS 800-160 mg] Allergies Allergy/AdvReac Type Severity Reaction Status Date / Time Penicillins Allergy Rash/Hives Verified 06/23/18 21:24 Physical Exam Vitals: Vital Signs Temp Pulse Pulse Pulse Resp BP BP 06/24/18 07:05 98.3 F 60 14 109/66 06/24/18 00:31 98.1 F 60 15 114/57 06/24/18 00:11 98.4 F 61 18 119/87 06/23/18 23:56 98.0 F 64 18 118/78 06/23/18 20:50 98.0 F 60 16 122/54 Pulse Ox 06/24/18 07:05 97 06/24/18 00:31 96 06/24/18 00:11 98 06/23/18 23:56 98 06/23/18 20:50 98 Intake and Output 06/23/18 06/24/18 06/24/18 22:59 06:59 14:59 Intake Total 1400 Output Total 50 Balance 1350 Intake: Intake, IV Titration 1400 Amount Sodium Chloride 0.9% 1, 400 000 ml @ 100 mls/hr IV . Q10H MANNIE Rx#:[id number] Sodium Chloride 0.9% 500 1000 ml @ 999 mls/hr IV .Q31M STA Rx#:[id number] Output: Urine 50 Other: # Voids 2 Weight 80.739 kg 80.739 kg - Constitutional General appearance: mild distress - EENT Eyes: PERRLA Ears: bilateral: normal - Neck Neck: normal ROM - Respiratory Respiratory: bilateral: CTA - Cardiovascular EKG 100% paced Rhythm: regular - Gastrointestinal General gastrointestinal: soft - Integumentary Integumentary: normal - Neurologic Neurologic: CNII-XII intact - Psychiatric Psychiatric: A&O x's 3, appropriate affect, intact judgment & insight Results CBC & Chem 7: 06/23/18 22:58 06/24/18 01:12 Labs: Abnormal Lab Results - Last 24 Hours (Table) 06/23/18 06/23/18 06/23/18 Range/Units 22:58 22:58 22:58 WBC 20.8 H (3.8-10.6) k/uL RBC 3.70 L (4.30-5.90) m/uL Hgb 11.9 L (13.0-17.5) gm/dL Hct 36.6 L (39.0-53.0) % Neutrophils # 18.6 H (1.3-7.7) k/uL PT 12.4 H (9.0-12.0) sec INR 1.2 H (<1.2) Sodium 134 L (137-145) mmol/L Potassium 5.7 H (3.5-5.1) mmol/L BUN 36 H (9-20) mg/dL Creatinine 1.67 H (0.66-1.25) mg/dL Glucose 134 H (74-99) mg/dL 06/24/18 Range/Units 01:12 WBC (3.8-10.6) k/uL RBC (4.30-5.90) m/uL Hgb (13.0-17.5) gm/dL Hct (39.0-53.0) % Neutrophils # (1.3-7.7) k/uL PT (9.0-12.0) sec INR (<1.2) Sodium (137-145) mmol/L Potassium 5.3 H (3.5-5.1) mmol/L BUN (9-20) mg/dL Creatinine (0.66-1.25) mg/dL Glucose (74-99) mg/dL Chest x-ray: report reviewed Assessment and Plan Plan: Assessment acute right hip fracture intertrochanter suspected pathological per CAT scan History of atrial fibrillation with cardiomyopathy diastolic congestive heart failure pacemaker Hyperkalemia acute renal failure Leukocytosis History of prostate cancer history of colon cancer Hyperlipidemia Hypertension Plan Medically cleared for surgery pending clearance from cardiology and nephrology
--- NOTE | 2018-06-24 12:55 | P.NPCON ---
History of Present Illness - Reason for Consult acute renal failure, chronic renal failure - History of Present Illness Reason for consultation: Acute kidney injury on chronic kidney disease History of present illness: Patient is a 88-year-old male seen in renal consultation for acute kidney injury on chronic kidney disease. Patient has chronic kidney disease stage III with baseline creatinine in the range of 1.1-1.3 secondary to nephrosclerosis. Creatinine was 1.67 on admission. Potassium was elevated at 5.7 and is 5.3 today. Patient was taking Bactrim for bronchitis along with Aldactone and lisinopril at home as well. Patient states that he was going up the stairs when he heard a pop in his right leg. Imaging revealed right femoral neck fracture. Denies chest pain or shortness of breath. Admits to good urine output. No hematuria or dysuria. Urinalysis is benign. Chest x-rays is not suggestive of fluid overload. Denies use of NSAIDs. No vomiting or diarrhea. He is scheduled for surgery this afternoon. Vital signs are stable. General: The patient appeared well nourished and normally developed. HEENT: Head exam is unremarkable. Neck is without jugular venous distension. LUNGS: Lungs are clear to auscultation and percussion. Breath sounds decreased. HEART: Rate and Rhythm are regular. First and second heart sounds normal. No murmurs, rubs or gallops. ABDOMEN: Abdominal exam reveals normal bowel sounds. Non-tender and non- distended. No evidence of peritonitis. EXTREMITITES: No clubbing, cyanosis, or edema. Past Medical History Past Medical History: Atrial Fibrillation, Cancer, GERD/Reflux, Hyperlipidemia, Hypertension, Osteoarthritis (OA), Prostate Disorder Additional Past Medical History / Comment(s): Pancreatitis, prostate CA > 10 yrs ago, COLON CA History of Any Multi-Drug Resistant Organisms: None Reported Past Surgical History: Bowel Resection, Pacemaker, Prostate Surgery Additional Past Surgical History / Comment(s): BILATERAL CATARACTS. PROSTATECTOMY, Past Anesthesia/Blood Transfusion Reactions: No Reported Reaction Type of Cardiac Device: Permanent Pacemaker Device Placement Date:: 12-12-15 Past Psychological History: No Psychological Hx Reported Smoking Status: Former smoker Past Alcohol Use History: None Reported Additional Past Alcohol Use History / Comment(s): SMOKING: QUIT 1978 FOR 34 YRS , PPD: 1-3. Past Drug Use History: None Reported Additional Drug Use History / Comment(s): 1-3 scotch or wine daily - Past Family History Father Family Medical History: Cancer Additional Family Medical History / Comment(s): prostate Brother(s) Family Medical History: Cancer Additional Family Medical History / Comment(s): Prostate Medications and Allergies Home Medications Medication Instructions Recorded Confirmed Type Aspirin EC [Ecotrin Low Dose] 81 mg PO MOWEFR@2100 09/25/14 06/23/18 History Atorvastatin Calcium [Lipitor] 10 mg PO HS 09/25/14 06/23/18 History Ranitidine HCl [Zantac] 150 mg PO BID 09/25/14 06/23/18 History Cholecalciferol [Vitamin D3] 1,000 unit PO PC-LUNCH 05/09/15 06/23/18 History Multivitamin [Men's Multi-Vitamin] 1 tab PO PC-LUNCH 05/09/15 06/23/18 History [place]-3 Fatty Acids/Fish Oil [Fish 1 cap PO PC-LUNCH 05/09/15 06/23/18 History Oil 1,000 mg Softgel] Cranberry Fruit Extract [Cranberry] 500 mg PO PC-LUNCH 11/10/15 06/23/18 History Lisinopril [Zestril] 5 mg PO BID 11/10/15 06/23/18 History Metoprolol Succinate [Toprol XL] 100 mg PO QAM 11/10/15 06/23/18 History Spironolactone [Aldactone] 25 mg PO QAM 11/10/15 06/23/18 History Furosemide 20 mg PO QAM 12/07/15 06/23/18 History Edoxaban Tosylate [Savaysa] 60 mg PO DAILY 06/23/18 06/23/18 History Sulfamethox-Tmp 800-160Mg [Bactrim 1 tab PO Q12H 06/23/18 06/23/18 History DS 800-160 mg] Allergies Allergy/AdvReac Type Severity Reaction Status Date / Time Penicillins Allergy Rash/Hives Verified 06/23/18 21:24 Physical Exam Vitals: Vital Signs Temp Pulse Pulse Pulse Resp BP BP 06/24/18 07:05 98.3 F 60 14 109/66 06/24/18 00:31 98.1 F 60 15 114/57 06/24/18 00:11 98.4 F 61 18 119/87 06/23/18 23:56 98.0 F 64 18 118/78 06/23/18 20:50 98.0 F 60 16 122/54 Pulse Ox 06/24/18 07:05 97 06/24/18 00:31 96 06/24/18 00:11 98 06/23/18 23:56 98 06/23/18 20:50 98 Intake and Output 06/23/18 06/24/18 06/24/18 22:59 06:59 14:59 Intake Total 1400 Output Total 50 Balance 1350 Intake: Intake, IV Titration 1400 Amount Sodium Chloride 0.9% 1, 400 000 ml @ 100 mls/hr IV . Q10H MANNIE Rx#:[id number] Sodium Chloride 0.9% 500 1000 ml @ 999 mls/hr IV .Q31M STA Rx#:[id number] Output: Urine 50 Other: # Voids 2 Weight 80.739 kg 80.739 kg Results - Lab Results Most recent lab results Calcium 9.4 mg/dL (8.4-10.2) 06/23/18 22:58 06/23/18 22:58 06/24/18 01:12 Assessment and Plan Plan: Assessment: 1. Acute kidney injury mostly prerenal secondary to the use of diuretics as well as Bactrim which will impair secretion of creatinine. Creatinine 1.67 on admission. Urinalysis is benign. Rule out urinary retention. 2. Chronic kidney disease stage III for pacing creatinine in the range of 1.1- 1.3 secondary to nephrosclerosis. 3. Hyperkalemia secondary to Aldactone, lisinopril and use of Bactrim. Better. 4. Hypertension with chronic kidney disease. Controlled. 5. Right femoral neck fracture scheduled for surgery today. Plan: Maintain normal saline at 100 mL an hour. Hold Lasix. Avoid nephrotoxins. Check labs now. If renal function and potassium level stable, he will be cleared for surgery from nephrology standpoint. Continue to monitor renal function and urine output. Check renal ultrasound. Check bladder scan. Thank you for the consultation. I will continue to follow the patient with you during his hospital stay.
--- NOTE | 2018-06-24 14:17 | P.CRDCN ---
History of Present Illness History of present illness: This is a pleasant 88-year-old male past medical history significant for nonsustained ventricular tachycardia, status post biventricular pacemaker, hypertension, dyslipidemia, persistent atrial fibrillation on long-term anticoagulation, nonischemic cardiomyopathy hypertension and mitral regurgitation. He follows with Dr. Mendes in the office. We have asked to see him in consultation for preoperative evaluation. He states he was going up the stairs when he made a sudden turn on the landing and he heard a pop in his right hip. He was unable to continue ambulating at that time had a cold friend for assistance. On arrival to the emergency department he was found to have a displaced intertrochanteric fracture of the right femur. He denies symptoms of chest discomfort, shortness of breath, dizziness or palpitations. He is seen and examined laying flat resting comfortably in bed in no acute distress. He recently underwent a stress test in the office in May 2018 which was negative for reversible cardiac ischemia. EKG reveals biventricular paced rhythm with underlying atrial fibrillation. Chest x-ray is negative for acute cardiopulmonary process. X-ray of the hip and pelvis indicates an acute displaced intertrochanteric fracture of the right femur. CT of the right femur reveals a displaced right femoral neck fracture suspected to be pathologic. Large area of abnormal soft tissue attenuation surrounding the proximal fracture. Soft tissue mass is not excluded, follow-up MRI recommended. Laboratory data reviewed, WBC 20.8, hemoglobin 11.9, INR 1.2, sodium 134, potassium 5.3, creatinine 1.67. Current cardiac medications include savaysa 60 mg daily, Aldactone 25 mg daily, Toprol 100 mg daily, lisinopril 5 mg twice a day, Lasix 20 mg daily, atorvastatin 10 mg daily and aspirin 81 mg daily. He has been seen in consultation by nephrology. Lasix, Aldactone and lisinopril been held. Last dose of savaysa yesterday morning. At the time of my exam: CONSTITUTIONAL: Denies fever. Denies chills. EYES: Denies blurred vision. Denies vision changes. Denies eye pain. EARS, NOSE, MOUTH & THROAT: Denies headache. Denies sore throat. Denies ear pain. CARDIOVASCULAR: Denies chest pain. Denies shortness of breath. Denies orthopnea. Denies PND. Denies palpitations. RESPIRATORY: Denies cough. GASTROINTESTINAL: Denies abdominal pain. Denies diarrhea. Denies constipation. Denies nausea. Denies vomiting. MUSCULOSKELETAL: Complains of pain to the right hip and leg. INTEGUMENTARY: Denies pruitis. Denies rash. NEUROLOGIC: Denies numbness. Denies tingling. Complains of weakness. PSYCHIATRIC: Denies anxiety. Denies depression. ENDOCRINE: Denies fatigue. Denies weight change. Denies polydipsia. Denies polyurina. GENITOURINARY: Denies burning, hematuria or urgency with micturation. HEMATOLOGIC: Denies history of anemia. Denies bleeding. Blood pressure 109/66 heart rate 60 afebrile maintaining oxygen saturation on room air GENERAL: This is a 88-year-old male in no apparent distress at the time of my examination. HEENT: Head is atraumatic, normocephalic. Pupils are equal, round. Sclerae anicteric. Conjunctivae are clear. Mucous membranes of the mouth are moist. Neck is supple. There is no jugular venous distention. No carotid bruit is heard. LUNGS: Clear to auscultation no wheezes, rales or rhonchi. No chest wall tenderness is noted on palpation or with deep breathing. HEART: Irregular rate and rhythm without murmurs, rubs or gallops. S1 and S2 heard. ABDOMEN: Soft, nontender. Bowel sounds are heard. No organomegaly noted. EXTREMITIES: No evidence of peripheral edema and no calf tenderness noted. VASCULAR: Radial and dorsalis pedis pulses palpated, no evidence of clubbing. NEUROLOGIC: Patient is awake, alert and oriented x3. ASSESSMENT Right femoral neck fracture Leukocytosis Hyperkalemia Acute kidney injury Chronic kidney disease Severe nonischemic cardiomyopathy History of biventricular pacemaker implantation Nonsustained ventricular tachycardia Hypertension Dyslipidemia Chronic persistent atrial fibrillation on long-term anticoagulation. Last dose was 06/23 in the AM. PLAN Obtain 2-D echocardiogram and Doppler study to assess cardiac structure and function. Stable from a cardiac perspective to proceed with surgery. He has no symptoms suggestive of fluid overload or angina. Due to his biventricular pacemaker he will need a magnet placed over the device during the procedure. Interrogate pacemaker with [facility] after surgery. Resume savaysa immediately after surgery. Maintain optimal blood pressure control intraoperatively and avoid excessive fluid administration. Continue beta blockers. We will continue to follow and make recommendations accordingly, thank you kindly for this consultation. Nurse Practitioner note has been reviewed, I agree with a documented findings and plan of care. Patient was seen and examined. Past Medical History Past Medical History: Atrial Fibrillation, Cancer, GERD/Reflux, Hyperlipidemia, Hypertension, Osteoarthritis (OA), Prostate Disorder Additional Past Medical History / Comment(s): Pancreatitis, prostate CA > 10 yrs ago, COLON CA History of Any Multi-Drug Resistant Organisms: None Reported Past Surgical History: Bowel Resection, Pacemaker, Prostate Surgery Additional Past Surgical History / Comment(s): BILATERAL CATARACTS. PROSTATECTOMY, Past Anesthesia/Blood Transfusion Reactions: No Reported Reaction Type of Cardiac Device: Permanent Pacemaker Device Placement Date:: 12-12-15 Past Psychological History: No Psychological Hx Reported Smoking Status: Former smoker Past Alcohol Use History: None Reported Additional Past Alcohol Use History / Comment(s): SMOKING: QUIT 1978 FOR 34 YRS , PPD: 1-3. Past Drug Use History: None Reported Additional Drug Use History / Comment(s): 1-3 scotch or wine daily - Past Family History Father Family Medical History: Cancer Additional Family Medical History / Comment(s): prostate Brother(s) Family Medical History: Cancer Additional Family Medical History / Comment(s): Prostate Medications and Allergies Home Medications Medication Instructions Recorded Confirmed Type Aspirin EC [Ecotrin Low Dose] 81 mg PO MOWEFR@2100 09/25/14 06/23/18 History Atorvastatin Calcium [Lipitor] 10 mg PO HS 09/25/14 06/23/18 History Ranitidine HCl [Zantac] 150 mg PO BID 09/25/14 06/23/18 History Cholecalciferol [Vitamin D3] 1,000 unit PO PC-LUNCH 05/09/15 06/23/18 History Multivitamin [Men's Multi-Vitamin] 1 tab PO PC-LUNCH 05/09/15 06/23/18 History [place]-3 Fatty Acids/Fish Oil [Fish 1 cap PO PC-LUNCH 05/09/15 06/23/18 History Oil 1,000 mg Softgel] Cranberry Fruit Extract [Cranberry] 500 mg PO PC-LUNCH 11/10/15 06/23/18 History Lisinopril [Zestril] 5 mg PO BID 11/10/15 06/23/18 History Metoprolol Succinate [Toprol XL] 100 mg PO QAM 11/10/15 06/23/18 History Spironolactone [Aldactone] 25 mg PO QAM 11/10/15 06/23/18 History Furosemide 20 mg PO QAM 12/07/15 06/23/18 History Edoxaban Tosylate [Savaysa] 60 mg PO DAILY 06/23/18 06/23/18 History Sulfamethox-Tmp 800-160Mg [Bactrim 1 tab PO Q12H 06/23/18 06/23/18 History DS 800-160 mg] Allergies Allergy/AdvReac Type Severity Reaction Status Date / Time Penicillins Allergy Rash/Hives Verified 06/23/18 21:24 Physical Exam Vitals: Vital Signs Temp Pulse Pulse Pulse Resp BP BP 06/24/18 07:05 98.3 F 60 14 109/66 06/24/18 00:31 98.1 F 60 15 114/57 06/24/18 00:11 98.4 F 61 18 119/87 06/23/18 23:56 98.0 F 64 18 118/78 06/23/18 20:50 98.0 F 60 16 122/54 Pulse Ox 06/24/18 07:05 97 06/24/18 00:31 96 06/24/18 00:11 98 06/23/18 23:56 98 06/23/18 20:50 98 Intake and Output 06/23/18 06/24/18 06/24/18 22:59 06:59 14:59 Intake Total 1400 Output Total 50 Balance 1350 Intake: Intake, IV Titration 1400 Amount Sodium Chloride 0.9% 1, 400 000 ml @ 100 mls/hr IV . Q10H MANNIE Rx#:[id number] Sodium Chloride 0.9% 500 1000 ml @ 999 mls/hr IV .Q31M STA Rx#:[id number] Output: Urine 50 Other: # Voids 2 Weight 80.739 kg 80.739 kg Results 06/23/18 22:58 06/24/18 01:12 Coagulation 06/23/18 Range/Units 22:58 PT 12.4 H (9.0-12.0) sec CBC 06/23/18 Range/Units 22:58 WBC 20.8 H (3.8-10.6) k/uL RBC 3.70 L (4.30-5.90) m/uL Hgb 11.9 L (13.0-17.5) gm/dL Hct 36.6 L (39.0-53.0) % Plt Count 197 (150-450) k/uL Comprehensive Metabolic Panel 06/23/18 06/24/18 Range/Units 22:58 01:12 Sodium 134 L (137-145) mmol/L Potassium 5.7 H 5.3 H (3.5-5.1) mmol/L Chloride 102 (98-107) mmol/L Carbon Dioxide 22 (22-30) mmol/L BUN 36 H (9-20) mg/dL Creatinine 1.67 H (0.66-1.25) mg/dL Glucose 134 H (74-99) mg/dL Calcium 9.4 (8.4-10.2) mg/dL Current Medications Generic Name Dose Route Start Last Admin Trade Name Freq PRN Reason Stop Dose Admin Acetaminophen 650 mg 06/23/18 23:42 Tylenol Tab PO Q6HR PRN Mild Pain or Fever > 100.5 Atorvastatin Calcium 10 mg 06/24/18 21:00 Lipitor PO HS MANNIE Cholecalciferol 1,000 unit 06/24/18 13:30 06/24/18 10:15 Vitamin D3 PO 1,000 unit PC-LUNCH MANNIE Administration Sodium Chloride 1,000 mls @ 100 mls/hr 06/23/18 23:45 06/24/18 01:03 Saline 0.9% IV Not Given .Q10H MANNIE Metoprolol Succinate 100 mg 06/24/18 09:00 06/24/18 10:15 Toprol Xl PO 100 mg QAM MANNIE Administration Morphine Sulfate 4 mg 06/23/18 23:42 06/24/18 07:16 Morphine Sulfate (Inj) IV 4 mg Q4HR PRN Administration Severe Pain Naloxone HCl 0.2 mg 06/23/18 23:42 Narcan IV Q2M PRN Opioid Reversal Pantoprazole Sodium 40 mg 06/24/18 09:00 06/24/18 07:16 Protonix IV 40 mg DAILY MANNIE Administration Intake and Output 06/23/18 06/24/18 06/24/18 22:59 06:59 14:59 Intake Total 1400 Output Total 50 Balance 1350 Intake: Intake, IV Titration 1400 Amount Sodium Chloride 0.9% 1, 400 000 ml @ 100 mls/hr IV . Q10H MANNIE Rx#:[id number] Sodium Chloride 0.9% 500 1000 ml @ 999 mls/hr IV .Q31M STA Rx#:[id number] Output: Urine 50 Other: # Voids 2 Weight 80.739 kg 80.739 kg 06/23/18 22:58 06/24/18 01:12
--- NOTE | 2018-06-24 14:17 | US ---
EXAMINATION TYPE: US kidneys/renal and bladder DATE OF EXAM: 06/24/2018 COMPARISON: US and CT CLINICAL HISTORY: samson. EXAM MEASUREMENTS: Right Kidney: 9.4 x 5.6 x 5.4 cm Left Kidney: 10.1 x 4.5 x 6.0 cm Post Void Residual Volume: not assessed on inpatient Right Kidney: No hydronephrosis or nephrolithiasis seen Left Kidney: No hydronephrosis or nephrolithiasis; upper cortical cyst seen = 1.2 x 1.0 x 0.9cm; mid pole cortical cyst = 0.8m x 1.0 x 0.8cm Bladder: wnl Bilateral Jets seen: Yes The urinary bladder is anechoic. Bilateral ureteral jets are seen. IMPRESSION: No hydronephrosis or nephrolithiasis small cortical cyst involving the left kidney is noted.
[2018-06-24 16:29] LABS: Calcium 8.7 mg/dL (8.4-10.2); Potassium 4.9 mmol/L (3.5-5.1)
[2018-06-24] MEDS: ATORVASTATIN 10 MG TAB PO SCH (21:00)
[2018-06-25] MEDS: SODIUM CHLORIDE 0.9% 1,000 ML IV SCH ×2 (01:56→08:54)
[2018-06-25] MEDS: MORPHINE SULFATE 4 MG/ML SYRINGE IV PRN (03:55)
[2018-06-25 08:07] LABS: Calcium 8.4 mg/dL (8.4-10.2); Potassium 5.3 mmol/L (3.5-5.1)
[2018-06-25] MEDS: METOPROLOL SUCCINATE (ER) 100 MG TAB.ER.24H PO SCH (08:54)
[2018-06-25] MEDS: CHOLECALCIFEROL 1,000 UNIT TAB PO SCH (08:54)
[2018-06-25] MEDS ORDERED: METOPROLOL SUCCINATE (ER) 100 MG TAB.ER.24H PO STA (09:08)
[2018-06-25] MEDS: PANTOPRAZOLE 40 MG/10 ML VIAL IV SCH (09:10)
[2018-06-25] MEDS ORDERED: DEXTROSE 50%-WATER 50 ML SYRINGE IVP STA (09:37)
[2018-06-25] MEDS ORDERED: INSULIN REGULAR 100 UNIT/ML VIAL IV ONE (09:40)
--- NOTE | 2018-06-25 10:16 | ECHOF ---
Referral Reason:pre-op MEASUREMENTS -------- HEIGHT: 177.8 cm WEIGHT: 80.7 kg BP: 109/66 RVIDd: 2.5 cm (< 3.3) IVSd: 1.1 cm (0.6 - 1.1) LVIDd: 4.8 cm (3.9 - 5.3) LVPWd: 1.1 cm (0.6 - 1.1) IVSs: 1.6 cm LVIDs: 2.7 cm LVPWs: 1.5 cm LA Diam: 3.5 cm (2.7 - 3.8) LAESV Index (A-L): 29.46 ml/m Ao Diam: 4.1 cm (2.0 - 3.7) AV Cusp: 1.9 cm (1.5 - 2.6) MV EXCURSION: 16.269 mm (> 18.000) MV EF SLOPE: 61 mm/s (70 - 150) EPSS: 0.3 cm MV E Adama: 1.03 m/s MV DecT: 157 ms MV A Adama: 0.48 m/s MV E/A Ratio: 2.14 AR PHT: 471 ms RAP: 5.00 mmHg RVSP: 27.32 mmHg FINDINGS -------- Sinus rhythm. This was a technically adequate study. The left ventricular size is normal. There is borderline concentric left ventricular hypertrophy. Overall left ventricular systolic function is normal with, an EF between 60 - 65 %. The right ventricle is normal in size. LA is midly dilated 29-33ml/m2. The right atrium is normal in size. There is mild aortic valve sclerosis. There is moderate aortic regurgitation. Mild mitral annular calcification present. [id number] mitral regurgitation is present. Mild tricuspid regurgitation present. Right ventricular systolic pressure is normal at < 35 mmHg. Trace/mild (physiologic) pulmonic regurgitation. The aortic root is dilated measuring 4.1cm. Normal inferior vena cava with normal inspiratory collapse consistent with estimated right atrial pre ssure of 5 mmHg. The inferior vena cava is mildly dilated. There is no pericardial effusion. CONCLUSIONS -------- 1. Sinus rhythm. 2. This was a technically adequate study. 3. The left ventricular size is normal. 4. There is borderline concentric left ventricular hypertrophy. 5. Overall left ventricular systolic function is normal with, an EF between 60 - 65 %. 6. The right ventricle is normal in size. 7. LA is midly dilated 29-33ml/m2. 8. The right atrium is normal in size. 9. There is mild aortic valve sclerosis. 10. There is moderate aortic regurgitation. 11. Mild mitral annular calcification present. 12. [id number]-vi-uxbkhbum mitral regurgitation is present. 13. Mild tricuspid regurgitation present. 14. Right ventricular systolic pressure is normal at < 35 mmHg. 15. Trace/mild (physiologic) pulmonic regurgitation. 16. The aortic root is dilated measuring 4.1cm. 17. Normal inferior vena cava with normal inspiratory collapse consistent with estimated right atrial pressure of 5 mmHg. 18. The inferior vena cava is mildly dilated. 19. There is no pericardial effusion. SHIP MANAGER: Halina Smith RDCS
--- NOTE | 2018-06-25 10:53 | P.PN ---
Subjective Patient is seen in follow-up for acute kidney injury on chronic kidney disease. Patient has chronic kidney disease stage III with baseline creatinine in the range of 1.1-1.3 secondary to nephrosclerosis. Creatinine was 1.67 on admission and is down to 1.33 today. Currently resting in bed. Scheduled for hip surgery today. No chest pain or shortness of breath. Vital signs are stable. General: The patient appeared well nourished and normally developed. HEENT: Head exam is unremarkable. Neck is without jugular venous distension. LUNGS: Lungs are clear to auscultation and percussion. Breath sounds decreased. HEART: Rate and Rhythm are regular. First and second heart sounds normal. No murmurs, rubs or gallops. ABDOMEN: Abdominal exam reveals normal bowel sounds. Non-tender and non- distended. No evidence of peritonitis. EXTREMITITES: No clubbing, cyanosis, or edema. Objective - Vital Signs Vital signs: Vital Signs Temp 98.6 F 06/25/18 08:01 Pulse 57 L 06/25/18 08:01 Resp 16 06/25/18 08:01 BP 114/50 06/25/18 08:01 Pulse Ox 97 06/25/18 08:01 Intake & Output 06/24/18 06/25/18 06/25/18 18:59 06:59 18:59 Intake Total 800 Output Total 200 500 Balance 600 -500 Intake: Intake, IV Titration 800 Amount Sodium Chloride 0.9% 1, 800 000 ml @ 100 mls/hr IV . Q10H MANNIE Rx#:[id number] Output: Urine 200 500 Other: # Voids 4 2 - Labs CBC & Chem 7: 06/23/18 22:58 06/25/18 06:35 Labs: Abnormal Lab Results - Last 24 Hours (Table) 06/24/18 06/25/18 Range/Units 14:47 06:35 Potassium 5.3 H (3.5-5.1) mmol/L BUN 33 H 28 H (9-20) mg/dL Creatinine 1.40 H 1.33 H (0.66-1.25) mg/dL Glucose 107 H 106 H (74-99) mg/dL Assessment and Plan Plan: Assessment: 1. Acute kidney injury mostly prerenal secondary to the use of diuretics as well as Bactrim which will impair secretion of creatinine. Creatinine 1.67 on admission and is down to 1.33 today. Urinalysis is benign. No hydronephrosis noted on renal ultrasound. 2. Chronic kidney disease stage III for pacing creatinine in the range of 1.1- 1.3 secondary to nephrosclerosis. 3. Hyperkalemia secondary to Aldactone, lisinopril and use of Bactrim. 4. Hypertension with chronic kidney disease. Controlled. 5. Right femoral neck fracture scheduled for surgery today. 6. 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 Plan: Decrease rate of normal saline to 70 mL an hour. Continue to hold Lasix. 10 units of IV insulin with an amp of D50 now. Repeat potassium level this afternoon. Avoid nephrotoxins.
--- NOTE | 2018-06-25 12:11 | P.PN ---
Subjective Patient scheduled for surgery this afternoon. Patient was cleared by cardiology they will follow postop. Also consulted nephrology they're correcting potassium. Patient stable for surgery Objective - Vital Signs Vital signs: Vital Signs Temp 98.6 F 06/25/18 08:01 Pulse 57 L 06/25/18 08:01 Resp 16 06/25/18 08:01 BP 114/50 06/25/18 08:01 Pulse Ox 97 06/25/18 08:01 Intake & Output 06/24/18 06/25/18 06/25/18 18:59 06:59 18:59 Intake Total 800 Output Total 200 500 Balance 600 -500 Intake: Intake, IV Titration 800 Amount Sodium Chloride 0.9% 1, 800 000 ml @ 100 mls/hr IV . Q10H MANNIE Rx#:[id number] Output: Urine 200 500 Other: # Voids 4 2 - Constitutional General appearance: Present: mild distress - EENT Eyes: Present: PERRLA Ears: right: normal - Neck Neck: Present: normal ROM - Respiratory Respiratory: bilateral: CTA - Cardiovascular Rhythm: regular - Gastrointestinal General gastrointestinal: Present: soft - Integumentary Integumentary: Present: normal - Neurologic Neurologic: Present: CNII-XII intact - Psychiatric Psychiatric: Present: A&O x's 3, appropriate affect, intact judgment & insight - Labs CBC & Chem 7: 06/23/18 22:58 06/25/18 06:35 Labs: Abnormal Lab Results - Last 24 Hours (Table) 06/24/18 06/25/18 Range/Units 14:47 06:35 Potassium 5.3 H (3.5-5.1) mmol/L BUN 33 H 28 H (9-20) mg/dL Creatinine 1.40 H 1.33 H (0.66-1.25) mg/dL Glucose 107 H 106 H (74-99) mg/dL - Imaging and Cardiology US - abdomen: report reviewed Assessment and Plan Plan: Assessment Right hip fracture intra-trochanter pathological suspected History of congestive heart failure with cardiomyopathy diastolic dysfunction with pacemaker Hyperkalemia History of prostate cancer history of colon cancer Hyperlipidemia History of A. fib Acute on chronic renal failure stage III Leukocytosis Plan Repair of right hip fracture today Patient cleared for surgery medically also with cardiology and nephrology
[2018-06-25] MEDS ORDERED: IV FLUID CONTINUATION 1,000 ML IV ONE (14:14)
[2018-06-25 14:31] LABS: Glucose,Whole Blood 121 mg/dL (75-99)
[2018-06-25] MEDS ORDERED: MIDAZOLAM 2 MG/2 ML VIAL ONE (16:43)
[2018-06-25] MEDS ORDERED: ePHEDrine SULFATE/0.9% NACL/PF 50 MG/5 ML SYRINGE IV ONE (16:43)
[2018-06-25] MEDS ORDERED: KETAMINE 10 MG/ML 20 ML VIAL ONE (16:43)
[2018-06-25] MEDS ORDERED: fentaNYL (PF) 50 MCG/ML 2 ML AMP ONE (16:43)
[2018-06-25] MEDS ORDERED: LACTATED RINGERS 1,000 ML IV ONE (17:36)
--- NOTE | 2018-06-25 19:00 | P.OP ---
Date of Procedure: 06/25/18 Preoperative Diagnosis: 1. Right subtrochanteric femur fracture 2. Atrial fibrillation 3. Chronic renal insufficiency 4. History of colon and prostate cancer Postoperative Diagnosis: Same Procedure(s) Performed: Operative fixation of right subtrochanteric femur fracture with long intramedullary hip nail Implants: Long [employer] TFN nail Anesthesia: spinal Surgeon: Lauri Vazquez Payroll Clerk #1: Jason Woo Payroll Clerk #2: Katherine Ramirez Estimated Blood Loss (ml): 400 IV fluids (ml): 700 Pathology: other (reamings sent for pathology) Condition: stable Disposition: PACU Indications for Procedure: The patient is an 88-year-old male with multiple medical problems who was walking up the stairs when he felt a pop in his right thigh. He had immediate pain and was unable to walk. He was seen in the emergency department where x- rays showed a displaced subtrochanteric femur fracture. He was admitted under my care and cleared for surgery by internal medicine, cardiology, and renal. I met with the patient and his friend prior to surgery discussed his injury and treatment options. I recommended operative fixation with a long intramedullary hip screw. He has a computed tomography scan which was suspicious for a pathologic fracture so we discussed potential ascending the reamings to rule out metastatic or primary malignancy. I discussed the potential risks and complications of surgery including but not limited to risk of anesthesia, superficial infection, deep infection, delayed wound healing, intraoperative fracture, postoperative fracture, malreduction, Rotan of hardware, implant failure, DVT, PE, acute coronary event, pneumonia, other medical complications, and possibly loss of life or limb. The patient understands these and elevated risk for having a complication due to his age and multiple medical problems. He provided his verbal and written consent to go forward with surgery. Description of Procedure: The patient was identified in preoperative holding and the correct right leg was marked with my initials. I reviewed the consent form with the patient and his friend. All their questions were answered. The patient was then brought back to the operating room by anesthesia. He was positioned on his gurney and a spinal anesthetic was administered by anesthesia. He was given preoperative antibiotics. He was then carefully transferred over to the fracture table. The right leg was secured in the boot of the fracture table. Peroneal post was placed. His left leg was very stiff at the hips it was scissored and attached the boom of the fracture table with foam and Coban. The right arm was draped across his body and the torso was gently shifted toward the left side of the bed. A timeout was performed identifying the correct patient, operative extremity, and procedure. Prior to starting surgery a closed reduction was attempted in the fracture table. A combination of longitudinal traction, adduction, and rotation was used. Fluoroscopy was brought in and on the AP view the fracture appeared to be fairly well reduced but on the lateral view the proximal fragment was flexed and significant we displaced. I was unable to significantly improve the alignment to the fracture table so elected to prep the patient on the standard sterile fashion and attempted open reduction. I began by making a small stab incision over the anterior aspect of the proximal fragment. A ball spike pusher was placed through the stab hole down to the anterior cortex the proximal fragment. A longitudinal incision was then made over the lateral aspect of the proximal femur. Dissection was carried down carefully through subcutaneous tissue with tenotomy scissors. The IT band was incised. The vastus lateralis was dissected off of the femur. The fracture was easily identified. An tmd teacher assistant used a on hook to pull the distal shaft anteriorly and used a ball spike pusher to push the anterior fragment posteriorly. Through the wound the fracture appeared to be reasonably well reduced. I then placed a guidepin just medial to the tip of the greater trochanter on the AP view and in line with the femur on the lateral view. An opening reamer was placed over the guidepin across the fracture. A ball-tipped K wire was then placed through the drill hole in the greater trochanter down across the fracture to the distal femur. It measured just longer than 420 mm x 420 mm nail length was chosen. I then reamed by hand up to a 12 mm reamer. A 420 mm x 11 mm long TFN nail was dispensed. Starting with the targeting arm anteriorly the nail was driven down across the fracture and as the nail traveled down the shaft of the femur the targeting arm was rotated laterally. The nail was fully seated. Clinically there was a slight recurrence of the flexion deformity of the proximal fragment. X-ray showed a slightly posterior start site of the nail and flexion of the proximal fragment. We attempted to withdraw the nail and re-clamp the fracture. The nail was once again brought down the femur. It was fully seated distally. A helical blade was placed into the femoral head. A distal interlocking screw was placed distally using the freehand perfect circles technique. Final fluoroscopic images showed the nail seated slightly posteriorly distal. Proximally the helical blade appeared well centered in the femoral head but there was a slight flexion deformity of the proximal shaft. Clinically through the lateral wound the fracture appeared to be relatively well reduced. I elected to accept the slight deformity. The wounds were then copiously irrigated and closed in layers. A sterile dressing was applied. The patient was awoken from his anesthetic, transferred to a gurney, and brought to PACU having taught of the procedure well. Katherine Ramirez was required as a skilled tmd teacher assistant for patient positioning, surgical exposure, retraction, placement of implant, and closure of wounds. Plan: The patient is going to be kept as an inpatient. He is to be toe-touch weightbearing on the right leg. Internal medicine will manage his perioperative medical problems. He will need 2 doses of postoperative antibiotics. Discharge planning is pending.
[2018-06-25] MEDS ORDERED: hydrOXYzine PAMOATE 25 MG CAP PO PRN (19:34)
[2018-06-25] MEDS ORDERED: HYDROmorphone 0.5 MG/0.5 ML SYRINGE IVP PRN ×3 (19:34)
[2018-06-25] MEDS ORDERED: ONDANSETRON 4 MG/2 ML VIAL IVP PRN (19:34)
[2018-06-25] MEDS ORDERED: MAGNESIUM HYDROXIDE 2,400 MG/10 ML CUP PO PRN (19:34)
[2018-06-25 20:50] LABS: Basophils % (A) 0 %; Eosinophils # (A) 0.1 k/uL (0-0.7); Eosinophils % (A) 0 %; HCT 27.3 % (39.0-53.0); Hypochromasia Slight; Lymphocytes # (A) 1.8 k/uL (1.0-4.8); Lymphocytes % (A) 9 %; MCH 33.7 pg (25.0-35.0); MCHC 33.1 g/dL (31.0-37.0); MCV 101.9 fL (80.0-100.0); Macrocytosis Slight; Mean Platelet Volume 7.8; Monocytes % (A) 5 %; Neutrophils # (A) 16.3 k/uL (1.3-7.7); Neutrophils % (A) 84 %; Platelet Count 188 k/uL (150-450); RBC 2.68 m/uL (4.30-5.90); RDW 13.6 % (11.5-15.5); WBC 19.4 k/uL (3.8-10.6)
[2018-06-25] MEDS ORDERED: SODIUM CHLORIDE 0.9% 2,000 ML IV ONE (21:40)
[2018-06-25 21:44] LABS: Glucose,Whole Blood 176 mg/dL (75-99)
[2018-06-25] MEDS: ATORVASTATIN 10 MG TAB PO SCH (22:20)
[2018-06-25] MEDS: SENNOSIDES-DOCUSATE SODIUM 1 EACH TAB PO SCH (22:20)
[2018-06-26 00:36] LABS: Basophils # (A) 0.1 k/uL (0-0.2); Basophils % (A) 0 %; Eosinophils # (A) 0.1 k/uL (0-0.7); Eosinophils % (A) 0 %; HCT 24.6 % (39.0-53.0); HGB 7.7 gm/dL (13.0-17.5); Hypochromasia Moderate; Lymphocytes # (A) 1.3 k/uL (1.0-4.8); Lymphocytes % (A) 5 %; MCHC 31.3 g/dL (31.0-37.0); MCV 105.4 fL (80.0-100.0); Macrocytosis Slight; Mean Platelet Volume 7.3; Monocytes # (A) 1.2 k/uL (0-1.0); Monocytes % (A) 5 %; Neutrophils # (A) 21.7 k/uL (1.3-7.7); Neutrophils % (A) 88 %; Platelet Count 194 k/uL (150-450); RBC 2.34 m/uL (4.30-5.90); RDW 13.4 % (11.5-15.5); WBC 24.6 k/uL (3.8-10.6)
[2018-06-26 00:55] LABS: Calcium 7.8 mg/dL (8.4-10.2); Potassium 5.5 mmol/L (3.5-5.1)
[2018-06-26] MEDS: HYDROcodone/APAP 5-325MG 1 EACH TAB PO PRN ×2 (00:56→10:06)
[2018-06-26] MEDS: SODIUM CHLORIDE 0.9% 1,000 ML IV SCH ×3 (05:56→22:01)
[2018-06-26 07:23] LABS: Hepatitis B Core IgM Non-Reactive (Non-Reactive); Hepatitis C IgG Antibody Non-Reactive (Non-Reactive)
[2018-06-26 08:26] LABS: Calcium 7.8 mg/dL (8.4-10.2); Magnesium 2.2 mg/dL (1.6-2.3); Potassium 5.5 mmol/L (3.5-5.1)
--- NOTE | 2018-06-26 08:32 | XR ---
EXAMINATION TYPE: XR femur RT, FL guidance operating room DATE OF EXAM: 06/25/2018 CLINICAL HISTORY: Right femoral intertrochanteric nailing for prior fracture and right lower extremit y pain TECHNIQUE: Fluoroscopy. COMPARISON: None. FINDINGS: Fluoroscopic guidance was provided during procedure performed by Dr. Vazquez. A total of 1 minute and 40 seconds of fluoroscopic time was utilized during the procedure and 4 spot images was acquired. IMPRESSION: As Above.
--- NOTE | 2018-06-26 08:46 | P.PN ---
Subjective Progress Note Date: 06/26/18 Principal diagnosis: Right subtrochanteric femur fracture status-post operative fixation with long intramedullary hip nail Patient is an 88-year-old male past medical history of atrial fibrillation with pacemaker on aysa, history of colon cancer, hyperlipidemia, hypertension, osteoarthritis presented to the ER 06/24/18 with complaints of right hip pain. Patient states he was walking up his stairs at home when he turned suddenly and felt a pop and a crack in his hip. He states he could not continue walking and had to call to his friend for help, who helped him down on the stairs. Patient then immediately called EMS for help, the patient was brought to [facility] ER for further evaluation and treatment. On presentation to the ER the patient was found to have a right displaced subtrochanteric femur fracture. The patient also noted right knee pain, however currently patient states that this is a chronic problem and he sees Dr. Johnathan Washington as an outpatient for osteoarthritis. Xrays in the ER showed severe osteoarthritis, and no fractures. Patient denies pain anywhere else in the body. Today is post-operative day #1. The patient states his pain is currently well- controlled, he just feels tired this morning. He states he has not been up with therapy yet. He denies chest pain, shortness of breath, nausea, vomiting, fevers , or chills. He denies numbness or tingling of the left lower extremity. He states he tolerated breakfast well. Vital signs stable. Objective - Vital Signs Vital signs: Vital Signs Temp 97.5 F L 06/25/18 20:30 Pulse 65 06/25/18 23:00 Resp 15 06/26/18 00:10 BP 120/62 06/25/18 23:00 Pulse Ox 97 06/25/18 20:30 Intake & Output 06/25/18 06/26/18 06/26/18 18:59 06:59 18:59 Intake Total 1000 200 Output Total 400 210 Balance 600 -10 Intake: IV 1000 200 Output: Urine 210 Estimated Blood Loss 400 Other: Voiding Method Indwelling Catheter # Voids 400 - Exam On exam, the patient is sitting up in bed in no acute distress. Patient is alert and oriented x3. On inspection of the right hip, there is a dressing in place which is clean, dry, and intact. Dressing is taken down, and the surgical incision shows no signs of infection; there is no erythema or drainage. Calves are soft and nontender bilaterally. Patient has full range of motion of the ankles and toes bilaterally. Neurovascular is intact of the lower extremities bilaterally. Dorsalis pedis pulse +2 bilaterally, brisk capillary refill of lower extremities bilaterally. - Labs CBC & Chem 7: 06/25/18 23:59 06/26/18 07:45 Labs: Abnormal Lab Results - Last 24 Hours (Table) 06/25/18 06/25/18 06/25/18 Range/Units 14:29 20:14 20:14 WBC 19.4 H (3.8-10.6) k/uL RBC 2.68 L (4.30-5.90) m/uL Hgb 9.0 L D (13.0-17.5) gm/dL Hct 27.3 L (39.0-53.0) % MCV 101.9 H (80.0-100.0) fL Neutrophils # 16.3 H (1.3-7.7) k/uL Monocytes # (0-1.0) k/uL Sodium (137-145) mmol/L Potassium (3.5-5.1) mmol/L Chloride (98-107) mmol/L Carbon Dioxide (22-30) mmol/L BUN (9-20) mg/dL Creatinine (0.66-1.25) mg/dL Glucose (74-99) mg/dL POC Glucose (mg/dL) 121 H (75-99) mg/dL Calcium (8.4-10.2) mg/dL Vitamin D 25-Hydroxy 17.9 L (30.0-100.0) ng/mL 06/25/18 06/25/18 06/26/18 Range/Units 21:32 23:59 00:05 WBC 24.6 H (3.8-10.6) k/uL RBC 2.34 L (4.30-5.90) m/uL Hgb 7.7 L (13.0-17.5) gm/dL Hct 24.6 L (39.0-53.0) % MCV 105.4 H (80.0-100.0) fL Neutrophils # 21.7 H (1.3-7.7) k/uL Monocytes # 1.2 H (0-1.0) k/uL Sodium 136 L (137-145) mmol/L Potassium 5.5 H (3.5-5.1) mmol/L Chloride 110 H (98-107) mmol/L Carbon Dioxide 18 L (22-30) mmol/L BUN 30 H (9-20) mg/dL Creatinine 1.57 H (0.66-1.25) mg/dL Glucose 166 H (74-99) mg/dL POC Glucose (mg/dL) 176 H (75-99) mg/dL Calcium 7.8 L (8.4-10.2) mg/dL Vitamin D 25-Hydroxy (30.0-100.0) ng/mL 06/26/18 Range/Units 07:45 WBC (3.8-10.6) k/uL RBC (4.30-5.90) m/uL Hgb (13.0-17.5) gm/dL Hct (39.0-53.0) % MCV (80.0-100.0) fL Neutrophils # (1.3-7.7) k/uL Monocytes # (0-1.0) k/uL Sodium (137-145) mmol/L Potassium 5.5 H (3.5-5.1) mmol/L Chloride 111 H (98-107) mmol/L Carbon Dioxide 15 L (22-30) mmol/L BUN 38 H (9-20) mg/dL Creatinine 1.80 H (0.66-1.25) mg/dL Glucose 192 H (74-99) mg/dL POC Glucose (mg/dL) (75-99) mg/dL Calcium 7.8 L (8.4-10.2) mg/dL Vitamin D 25-Hydroxy (30.0-100.0) ng/mL Assessment and Plan Assessment: Right subtrochanteric femur fracture status-post operative fixation with long intramedullary hip nail Plan: - Toe-touch weight bearing of the right lower extremity. Ice and elevate right hip for pain and swelling control. Up with therapy, up with a walker. - Hgb 7.7 post-operatively, will continue to monitor. - Continue current pain management. Will defer post-operative anticoagulation to medicine. - 2 doses of post-operative antibiotics. - Physical therapy for gait and balance training. - Appreciate medicine, cardiology, and nephrology consults. - Case management consulted for discharge planning. - Patient discussed with Dr. Vazquez.
[2018-06-26] MEDS: METOPROLOL SUCCINATE (ER) 100 MG TAB.ER.24H PO SCH (10:07)
[2018-06-26] MEDS: CHOLECALCIFEROL 1,000 UNIT TAB PO SCH (10:07)
[2018-06-26] MEDS ORDERED: EDOXABAN TOSYLATE 60 MG TABLET PO SCH (11:15)
[2018-06-26] MEDS ORDERED: INSULIN REGULAR 100 UNIT/ML VIAL IV ONE (11:38)
[2018-06-26] MEDS ORDERED: DEXTROSE 50%-WATER 50 ML SYRINGE IVP STA (11:39)
[2018-06-26] MEDS ORDERED: SODIUM BICARB 8.4% 50 ML SYR (1 MEQ/ML) IV STA (11:40)
--- NOTE | 2018-06-26 11:40 | P.PN ---
Subjective Patient is seen in follow-up for acute kidney injury on chronic kidney disease. Patient has chronic kidney disease stage III with baseline creatinine in the range of 1.1-1.3 secondary to nephrosclerosis. Creatinine is up to 1.8 today. Patient underwent right hip nailing yesterday. Last night his blood pressure was low in the systolic 70s. He has a Lockwood catheter in place. Feels weak and dizzy. Vital signs are stable. General: The patient appeared well nourished and normally developed. HEENT: Head exam is unremarkable. Neck is without jugular venous distension. LUNGS: Lungs are clear to auscultation and percussion. Breath sounds decreased. HEART: Rate and Rhythm are regular. First and second heart sounds normal. No murmurs, rubs or gallops. ABDOMEN: Abdominal exam reveals normal bowel sounds. Non-tender and non- distended. No evidence of peritonitis. EXTREMITITES: No clubbing, cyanosis, or edema. Objective - Vital Signs Vital signs: Vital Signs Temp 97.5 F L 06/25/18 20:30 Pulse 63 06/26/18 09:56 Resp 16 06/26/18 09:56 BP 123/66 06/26/18 09:56 Pulse Ox 100 06/26/18 09:56 Intake & Output 06/25/18 06/26/18 06/26/18 18:59 06:59 18:59 Intake Total 1000 200 Output Total 400 210 Balance 600 -10 Intake: IV 1000 200 Output: Urine 210 Estimated Blood Loss 400 Other: Voiding Method Indwelling Catheter Indwelling Catheter # Voids 400 - Labs CBC & Chem 7: 06/25/18 23:59 06/26/18 07:45 Labs: Abnormal Lab Results - Last 24 Hours (Table) 06/25/18 06/25/18 06/25/18 Range/Units 14:29 20:14 20:14 WBC 19.4 H (3.8-10.6) k/uL RBC 2.68 L (4.30-5.90) m/uL Hgb 9.0 L D (13.0-17.5) gm/dL Hct 27.3 L (39.0-53.0) % MCV 101.9 H (80.0-100.0) fL Neutrophils # 16.3 H (1.3-7.7) k/uL Monocytes # (0-1.0) k/uL Sodium (137-145) mmol/L Potassium (3.5-5.1) mmol/L Chloride (98-107) mmol/L Carbon Dioxide (22-30) mmol/L BUN (9-20) mg/dL Creatinine (0.66-1.25) mg/dL Glucose (74-99) mg/dL POC Glucose (mg/dL) 121 H (75-99) mg/dL Calcium (8.4-10.2) mg/dL Vitamin D 25-Hydroxy 17.9 L (30.0-100.0) ng/mL 06/25/18 06/25/18 06/26/18 Range/Units 21:32 23:59 00:05 WBC 24.6 H (3.8-10.6) k/uL RBC 2.34 L (4.30-5.90) m/uL Hgb 7.7 L (13.0-17.5) gm/dL Hct 24.6 L (39.0-53.0) % MCV 105.4 H (80.0-100.0) fL Neutrophils # 21.7 H (1.3-7.7) k/uL Monocytes # 1.2 H (0-1.0) k/uL Sodium 136 L (137-145) mmol/L Potassium 5.5 H (3.5-5.1) mmol/L Chloride 110 H (98-107) mmol/L Carbon Dioxide 18 L (22-30) mmol/L BUN 30 H (9-20) mg/dL Creatinine 1.57 H (0.66-1.25) mg/dL Glucose 166 H (74-99) mg/dL POC Glucose (mg/dL) 176 H (75-99) mg/dL Calcium 7.8 L (8.4-10.2) mg/dL Vitamin D 25-Hydroxy (30.0-100.0) ng/mL 06/26/18 Range/Units 07:45 WBC (3.8-10.6) k/uL RBC (4.30-5.90) m/uL Hgb (13.0-17.5) gm/dL Hct (39.0-53.0) % MCV (80.0-100.0) fL Neutrophils # (1.3-7.7) k/uL Monocytes # (0-1.0) k/uL Sodium (137-145) mmol/L Potassium 5.5 H (3.5-5.1) mmol/L Chloride 111 H (98-107) mmol/L Carbon Dioxide 15 L (22-30) mmol/L BUN 38 H (9-20) mg/dL Creatinine 1.80 H (0.66-1.25) mg/dL Glucose 192 H (74-99) mg/dL POC Glucose (mg/dL) (75-99) mg/dL Calcium 7.8 L (8.4-10.2) mg/dL Vitamin D 25-Hydroxy (30.0-100.0) ng/mL Assessment and Plan Plan: Assessment: 1. Acute kidney injury mostly prerenal secondary to the use of diuretics as well as Bactrim which will impair secretion of creatinine. Renal function had improved but now again worsening which is due to hypotension. Urinalysis is benign. No hydronephrosis noted on renal ultrasound. 2. Chronic kidney disease stage III for pacing creatinine in the range of 1.1- 1.3 secondary to nephrosclerosis. 3. Hyperkalemia secondary to acute kidney injury and metabolic acidosis. 4. Hypertension with chronic kidney disease. Controlled. 5. Right femoral neck fracture status post intramedullary nailing on June 25. 6. 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 7. Metabolic acidosis secondary to acute kidney injury. Plan: Maintain normal saline at 70 mL an hour. 10 units of IV insulin with an amp of D50 now. 2 A of bicarb IV push. Add oral sodium bicarbonate. Repeat potassium level this afternoon. Avoid nephrotoxins. Scheduled to receive 1 unit of blood today. I will give him Lasix 40 mg IV after blood transition completed. Check orthostatics.
--- NOTE | 2018-06-26 11:41 | P.PN ---
Subjective Discussed case with in room. Patient became dizzy and nauseous on sitting at bedside agreed to all 1 unit transfusion followed by Brendan. Patient states pain controlled Objective - Vital Signs Vital signs: Vital Signs Temp 97.5 F L 06/25/18 20:30 Pulse 63 06/26/18 09:56 Resp 16 06/26/18 09:56 BP 123/66 06/26/18 09:56 Pulse Ox 100 06/26/18 09:56 Intake & Output 06/25/18 06/26/18 06/26/18 18:59 06:59 18:59 Intake Total 1000 200 Output Total 400 210 Balance 600 -10 Intake: IV 1000 200 Output: Urine 210 Estimated Blood Loss 400 Other: Voiding Method Indwelling Catheter Indwelling Catheter # Voids 400 - Constitutional General appearance: Present: mild distress - EENT Eyes: Present: PERRLA Ears: bilateral: normal - Neck Neck: Present: normal ROM - Respiratory Respiratory: bilateral: CTA - Cardiovascular Rhythm: regular Abnormal Heart Sounds: Present: systolic murmur - Gastrointestinal General gastrointestinal: Present: soft - Integumentary Integumentary: Present: pale - Neurologic Neurologic: Present: CNII-XII intact - Musculoskeletal Musculoskeletal: Present: generalized weakness - Psychiatric Psychiatric: Present: A&O x's 3, appropriate affect, intact judgment & insight - Labs CBC & Chem 7: 06/25/18 23:59 06/26/18 07:45 Labs: Abnormal Lab Results - Last 24 Hours (Table) 06/25/18 06/25/18 06/25/18 Range/Units 14:23 14:29 20:14 WBC 19.4 H (3.8-10.6) k/uL RBC 2.68 L (4.30-5.90) m/uL Hgb 9.0 L D (13.0-17.5) gm/dL Hct 27.3 L (39.0-53.0) % MCV 101.9 H (80.0-100.0) fL Neutrophils # 16.3 H (1.3-7.7) k/uL Monocytes # (0-1.0) k/uL Sodium (137-145) mmol/L Potassium (3.5-5.1) mmol/L Chloride (98-107) mmol/L Carbon Dioxide (22-30) mmol/L BUN (9-20) mg/dL Creatinine (0.66-1.25) mg/dL Glucose (74-99) mg/dL POC Glucose (mg/dL) 121 H (75-99) mg/dL Calcium (8.4-10.2) mg/dL Vitamin D 25-Hydroxy (30.0-100.0) ng/mL Crossmatch See Detail 06/25/18 06/25/18 06/25/18 Range/Units 20:14 21:32 23:59 WBC 24.6 H (3.8-10.6) k/uL RBC 2.34 L (4.30-5.90) m/uL Hgb 7.7 L (13.0-17.5) gm/dL Hct 24.6 L (39.0-53.0) % MCV 105.4 H (80.0-100.0) fL Neutrophils # 21.7 H (1.3-7.7) k/uL Monocytes # 1.2 H (0-1.0) k/uL Sodium (137-145) mmol/L Potassium (3.5-5.1) mmol/L Chloride (98-107) mmol/L Carbon Dioxide (22-30) mmol/L BUN (9-20) mg/dL Creatinine (0.66-1.25) mg/dL Glucose (74-99) mg/dL POC Glucose (mg/dL) 176 H (75-99) mg/dL Calcium (8.4-10.2) mg/dL Vitamin D 25-Hydroxy 17.9 L (30.0-100.0) ng/mL Crossmatch 06/26/18 06/26/18 Range/Units 00:05 07:45 WBC (3.8-10.6) k/uL RBC (4.30-5.90) m/uL Hgb (13.0-17.5) gm/dL Hct (39.0-53.0) % MCV (80.0-100.0) fL Neutrophils # (1.3-7.7) k/uL Monocytes # (0-1.0) k/uL Sodium 136 L (137-145) mmol/L Potassium 5.5 H 5.5 H (3.5-5.1) mmol/L Chloride 110 H 111 H (98-107) mmol/L Carbon Dioxide 18 L 15 L (22-30) mmol/L BUN 30 H 38 H (9-20) mg/dL Creatinine 1.57 H 1.80 H (0.66-1.25) mg/dL Glucose 166 H 192 H (74-99) mg/dL POC Glucose (mg/dL) (75-99) mg/dL Calcium 7.8 L 7.8 L (8.4-10.2) mg/dL Vitamin D 25-Hydroxy (30.0-100.0) ng/mL Crossmatch Assessment and Plan Plan: Assessment Right hip fracture intra-trochanter post open fixation Hyperkalemia Anemia chronic disease and postop blood loss Lobe and 7.7 History of atrial failed with congestive heart failure diastolic dysfunction cardiomyopathy History of prostate cancer history of colon cancer Hyperlipidemia Hypertension Acute on chronic renal failure stage III Leukocytosis Plan Discussed transfusion with Dr. Carmichael We'll continue with cardiology and nephrology consultation
[2018-06-26] MEDS: SODIUM BICARBONATE TAB 650 MG TAB PO SCH ×2 (13:02→22:00)
[2018-06-26] MEDS ORDERED: HYDROmorphone 2 MG TAB PO PRN ×3 (13:27→13:29)
[2018-06-26] MEDS: PANTOPRAZOLE 40 MG/10 ML VIAL IV SCH (15:17)
[2018-06-26] MEDS: ceFAZolin IN SWFI 2 GM/20 ML SYRINGE IVP SCH ×2 (15:17)
[2018-06-26] MEDS ORDERED: FUROSEMIDE 10 MG/ML 4 ML VIAL IV STA (16:28)
[2018-06-26] MEDS: SENNOSIDES-DOCUSATE SODIUM 1 EACH TAB PO SCH (22:00)
[2018-06-26] MEDS: ATORVASTATIN 10 MG TAB PO SCH (22:00)
[2018-06-27] MEDS: HYDROcodone/APAP 5-325MG 1 EACH TAB PO PRN ×3 (04:46→15:29)
[2018-06-27] MEDS: SODIUM CHLORIDE 0.9% 1,000 ML IV SCH ×2 (04:51→21:07)
[2018-06-27] MEDS: PANTOPRAZOLE 40 MG/10 ML VIAL IV SCH (08:08)
[2018-06-27] MEDS: SODIUM BICARBONATE TAB 650 MG TAB PO SCH ×2 (08:12→21:07)
[2018-06-27] MEDS: EDOXABAN TOSYLATE 30 MG TABLET PO SCH (08:13)
[2018-06-27] MEDS: METOPROLOL SUCCINATE (ER) 100 MG TAB.ER.24H PO SCH (08:13)
[2018-06-27 08:20] LABS: Calcium 7.5 mg/dL (8.4-10.2); Magnesium 2.3 mg/dL (1.6-2.3); Potassium 4.5 mmol/L (3.5-5.1)
--- NOTE | 2018-06-27 09:29 | P.PN ---
Subjective Patient is seen in follow-up for acute kidney injury on chronic kidney disease. Patient has chronic kidney disease stage III with baseline creatinine in the range of 1.1-1.3 secondary to nephrosclerosis. Creatinine is up to 2.42 today. Patient underwent right hip nailing on June 25. His blood pressure did drop into the systolic 70s and was 99/48 this morning. He did receive a unit of blood yesterday as well. He has a Lockwood catheter in place. Urine output 400 mL overnight. Vital signs are stable. General: The patient appeared well nourished and normally developed. HEENT: Head exam is unremarkable. Neck is without jugular venous distension. LUNGS: Lungs are clear to auscultation and percussion. Breath sounds decreased. HEART: Rate and Rhythm are regular. First and second heart sounds normal. No murmurs, rubs or gallops. ABDOMEN: Abdominal exam reveals normal bowel sounds. Non-tender and non- distended. No evidence of peritonitis. EXTREMITITES: No clubbing, cyanosis, or edema. Objective - Vital Signs Vital signs: Vital Signs Temp 98.0 F 06/27/18 08:10 Pulse 60 06/27/18 08:10 Resp 17 06/27/18 08:10 BP 99/48 06/27/18 08:10 Pulse Ox 92 L 06/27/18 08:10 Intake & Output 06/26/18 06/27/18 06/27/18 18:59 06:59 18:59 Intake Total 380 1560 Output Total 520 Balance 380 1040 Intake: Intake, IV Titration 140 770 Amount Sodium Chloride 0.9% 1, 140 770 000 ml @ 70 mls/hr IV . [id number] [facility] Rx#:[id number] Oral 240 480 Blood Product 0 310 Rc As-1 Unit 0 310 [id number] Output: Urine 520 Uretheral (Lockwood) 520 Other: Voiding Method Indwelling Catheter Indwelling Catheter - Labs CBC & Chem 7: 06/25/18 23:59 06/27/18 07:19 Labs: Abnormal Lab Results - Last 24 Hours (Table) 06/25/18 06/26/18 06/27/18 Range/Units 14:23 20:36 07:19 Sodium 136 L (137-145) mmol/L Potassium 5.3 H (3.5-5.1) mmol/L Carbon Dioxide 20 L (22-30) mmol/L BUN 54 H (9-20) mg/dL Creatinine 2.42 H (0.66-1.25) mg/dL Glucose 109 H (74-99) mg/dL Calcium 7.5 L (8.4-10.2) mg/dL Crossmatch See Detail Assessment and Plan Plan: Assessment: 1. Acute kidney injury mostly prerenal secondary to the use of diuretics as well as Bactrim which will impair secretion of creatinine. Renal function had improved but now again worsening which is due to hypotension. Urinalysis is benign. No hydronephrosis noted on renal ultrasound. Creatinine up to 2.42 today. 2. Chronic kidney disease stage III for pacing creatinine in the range of 1.1- 1.3 secondary to nephrosclerosis. 3. Hyperkalemia secondary to acute kidney injury and metabolic acidosis. Better. 4. Hypertension with chronic kidney disease. Blood pressures normal. 5. Right femoral neck fracture status post intramedullary nailing on June 25. 6. 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 7. Metabolic acidosis secondary to acute kidney injury maintained on oral sodium bicarbonate. Improved. Plan: Maintain normal saline at 70 mL an hour. Add midodrine. Check cortisol level. Avoid nephrotoxins. Repeat electrolytes in the morning.
[2018-06-27 09:58] LABS: Basophils # (A) 0.1 k/uL (0-0.2); Basophils % (A) 0 %; Eosinophils # (A) 0.2 k/uL (0-0.7); Eosinophils % (A) 1 %; HCT 20.6 % (39.0-53.0); Lymphocytes # (A) 1.8 k/uL (1.0-4.8); Lymphocytes % (A) 8 %; MCH 32.8 pg (25.0-35.0); MCHC 32.9 g/dL (31.0-37.0); Macrocytosis Slight; Mean Platelet Volume 8.5; Monocytes # (A) 0.7 k/uL (0-1.0); Monocytes % (A) 3 %; Neutrophils # (A) 19.9 k/uL (1.3-7.7); Neutrophils % (A) 87 %; Platelet Count 190 k/uL (150-450); RBC 2.07 m/uL (4.30-5.90); RDW 13.9 % (11.5-15.5); WBC 22.9 k/uL (3.8-10.6)
[2018-06-27 10:08] LABS: HGB 6.8 gm/dL (13.0-17.5); MCV 99.7 fL (80.0-100.0)
[2018-06-27] MEDS: MIDODRINE 5 MG TAB PO SCH ×2 (11:27→17:36)
--- NOTE | 2018-06-27 12:49 | P.PN ---
Subjective Progress Note Date: 06/27/18 Principal diagnosis: Right subtrochanteric femur fracture status-post operative fixation with long intramedullary hip nail Chronic kidney disease Patient is an 88-year-old male past medical history of atrial fibrillation with pacemaker on Savaysa, history of colon cancer, hyperlipidemia, hypertension, osteoarthritis presented to the ER 06/24/18 with complaints of right hip pain. Patient states he was walking up his stairs at home when he turned suddenly and felt a pop and a crack in his hip. He states he could not continue walking and had to call to his friend for help, who helped him down on the stairs. Patient then immediately called EMS for help, the patient was brought to [facility] ER for further evaluation and treatment. On presentation to the ER the patient was found to have a right displaced subtrochanteric femur fracture. The patient also noted right knee pain, however currently patient states that this is a chronic problem and he sees Dr. Johnathan Washington as an outpatient for osteoarthritis. Xrays in the ER showed severe osteoarthritis, and no fractures. Patient denies pain anywhere else in the body. Fracture is suspected to be pathologic, based on the mechanism of injury. Today is post-operative day #2. The patient states his pain is well-controlled. Patient was transfused 1 unit of blood yesterday and the plan is to transfuse another unit today, per medicine. He was up with therapy this morning and transferring to the chair, the patient states he felt very dizzy during the transfer. Currently, the patient states he is very tired. He states he tolerated breakfast well. He denies chest pain, shortness of breath, nausea, vomiting, fevers, or chills. He denies numbness or tingling of the left lower extremity. Patient is mildly hypotensive, otherwise vital signs stable. Objective - Vital Signs Vital signs: Vital Signs Temp 98.0 F 06/27/18 08:10 Pulse 60 06/27/18 08:10 Resp 17 06/27/18 08:10 BP 99/48 06/27/18 08:10 Pulse Ox 92 L 06/27/18 08:10 Intake & Output 06/26/18 06/27/18 06/27/18 18:59 06:59 18:59 Intake Total 380 1560 Output Total 520 Balance 380 1040 Intake: Intake, IV Titration 140 770 Amount Sodium Chloride 0.9% 1, 140 770 000 ml @ 70 mls/hr IV . [id number] [facility] Rx#:[id number] Oral 240 480 Blood Product 0 310 Rc As-1 Unit 0 310 [id number] Output: Urine 520 Uretheral (Lockwood) 520 Other: Voiding Method Indwelling Catheter Indwelling Catheter Indwelling Catheter - Exam On exam, the patient is sitting up in the chair in no acute distress. Patient is alert and oriented x3. On inspection of the right hip, there is a dressing in place which is clean, dry, and intact. Dressing is taken down, and the surgical incision shows no signs of infection; there is no erythema or drainage. Calves are soft and nontender bilaterally. Lower extremity compression cuffs are in place bilaterally. Urinary catheter in place. Patient has full range of motion of the ankles and toes bilaterally. Neurovascular is intact of the lower extremities bilaterally. Dorsalis pedis pulse +2 bilaterally, brisk capillary refill of lower extremities bilaterally. - Labs CBC & Chem 7: 06/27/18 07:19 06/27/18 07:19 Labs: Abnormal Lab Results - Last 24 Hours (Table) 06/25/18 06/26/18 06/27/18 Range/Units 14:23 20:36 07:19 WBC (3.8-10.6) k/uL RBC (4.30-5.90) m/uL Hgb (13.0-17.5) gm/dL Hct (39.0-53.0) % Neutrophils # (1.3-7.7) k/uL Sodium 136 L (137-145) mmol/L Potassium 5.3 H (3.5-5.1) mmol/L Carbon Dioxide 20 L (22-30) mmol/L BUN 54 H (9-20) mg/dL Creatinine 2.42 H (0.66-1.25) mg/dL Glucose 109 H (74-99) mg/dL Calcium 7.5 L (8.4-10.2) mg/dL Crossmatch See Detail 06/27/18 Range/Units 07:19 WBC 22.9 H (3.8-10.6) k/uL RBC 2.07 L (4.30-5.90) m/uL Hgb 6.8 L* (13.0-17.5) gm/dL Hct 20.6 L (39.0-53.0) % Neutrophils # 19.9 H (1.3-7.7) k/uL Sodium (137-145) mmol/L Potassium (3.5-5.1) mmol/L Carbon Dioxide (22-30) mmol/L BUN (9-20) mg/dL Creatinine (0.66-1.25) mg/dL Glucose (74-99) mg/dL Calcium (8.4-10.2) mg/dL Crossmatch - Imaging and Cardiology Femur computed tomography scan 06/24/18: Place right femoral neck fracture suspected to be pathologic. Assessment and Plan Assessment: Right subtrochanteric femur fracture status-post operative fixation with long intramedullary hip nail Chronic kidney disease Plan: - Toe-touch weight bearing of the right lower extremity. Ice and elevate right hip for pain and swelling control. Up with therapy, up with a walker. - Continue current pain management. Will defer post-operative anticoagulation to medicine. - Fracture is suspected to be pathologic, pathology report of surgical specimen pending. - 2 doses of post-operative antibiotics complete. - Physical therapy for gait and balance training. - Appreciate medicine, cardiology, and nephrology consults. - Case management consulted for discharge planning. - Patient discussed with Dr. Vazquez.
--- NOTE | 2018-06-27 13:49 | P.PN ---
Subjective Patient looks lethargic, complaining of fatigue hemoglobin dropped to 6 no evidence of GI bleed. Will transfuse on blood transfusion patient creatinine has worsened nephrology is following the patient. Hold off on any diuretic therapy at this time. Constitutional: As mentioned above Cardio vascular: denied any chest pain, palpitations Gastrointestinal denied any nausea vomiting Pulmonary: Denied any shortness of breath cough Neurologic denied any new focal deficits All inpatient medications were reviewed and appropriate changes in these medications as dictated in the interval history and assessment and plan. Objective - Vital Signs Vital signs: Vital Signs Temp 97.7 F 06/27/18 13:15 Pulse 60 06/27/18 13:15 Resp 17 06/27/18 08:10 BP 95/50 06/27/18 13:15 Pulse Ox 92 L 06/27/18 08:10 Intake & Output 06/26/18 06/27/18 06/27/18 18:59 06:59 18:59 Intake Total 380 1560 0 Output Total 520 Balance 380 1040 0 Intake: Intake, IV Titration 140 770 Amount Sodium Chloride 0.9% 1, 140 770 000 ml @ 70 mls/hr IV . [id number] [facility] Rx#:[id number] Oral 240 480 Blood Product 0 310 0 Rc As-1 Unit 0 310 [id number] Rc As-1 Unit 0 [id number] Output: Urine 520 Uretheral (Lockwood) 520 Other: Voiding Method Indwelling Catheter Indwelling Catheter Indwelling Catheter - Exam PHYSICAL EXAMINATION: GENERAL: The patient is alert and oriented x3, not in any acute distress. Looks pale lethargic HEENT: Pupils are round and equally reacting to light. EOMI. No scleral icterus. Does have conjunctival pallor. Normocephalic, atraumatic. No pharyngeal erythema. No thyromegaly. CARDIOVASCULAR: S1 and S2 present. No murmurs, rubs, or gallops. PULMONARY: Chest is clear to auscultation, no wheezing or crackles. ABDOMEN: Soft, nontender, nondistended, normoactive bowel sounds. No palpable organomegaly. MUSCULOSKELETAL: No joint swelling or deformity. EXTREMITIES: No cyanosis, clubbing, or pedal edema. NEUROLOGICAL: Gross neurological examination did not reveal any focal deficits. SKIN: No rashes. - Labs CBC & Chem 7: 06/27/18 07:19 06/27/18 07:19 Labs: Abnormal Lab Results - Last 24 Hours (Table) 06/25/18 06/26/18 06/27/18 Range/Units 14:23 20:36 07:19 WBC (3.8-10.6) k/uL RBC (4.30-5.90) m/uL Hgb (13.0-17.5) gm/dL Hct (39.0-53.0) % Neutrophils # (1.3-7.7) k/uL Sodium 136 L (137-145) mmol/L Potassium 5.3 H (3.5-5.1) mmol/L Carbon Dioxide 20 L (22-30) mmol/L BUN 54 H (9-20) mg/dL Creatinine 2.42 H (0.66-1.25) mg/dL Glucose 109 H (74-99) mg/dL Calcium 7.5 L (8.4-10.2) mg/dL Crossmatch See Detail 06/27/18 Range/Units 07:19 WBC 22.9 H (3.8-10.6) k/uL RBC 2.07 L (4.30-5.90) m/uL Hgb 6.8 L* (13.0-17.5) gm/dL Hct 20.6 L (39.0-53.0) % Neutrophils # 19.9 H (1.3-7.7) k/uL Sodium (137-145) mmol/L Potassium (3.5-5.1) mmol/L Carbon Dioxide (22-30) mmol/L BUN (9-20) mg/dL Creatinine (0.66-1.25) mg/dL Glucose (74-99) mg/dL Calcium (8.4-10.2) mg/dL Crossmatch Assessment and Plan Plan: -Right hip intertrochanteric fracture status post open reduction and internal fixation: Pain management as per primary service avoid long-acting opiates because of his renal dysfunction -Acute blood loss anemia secondary to surgery: Since his hemoglobin is around 6 transfusing 1 unit patient is symptomatic with severe fatigue -Acute kidney injury secondary to diuretics and Bactrim. Patient appears to some chronic kidney disease stage III. Nephrology is following the patient patient has hypertensive nephrosclerosis Atrial fibrillation: Presently rate controlled patient is on anticoagulation which may need to be held if his hemoglobin continues to drop History of prostate cancer history of colon cancer Hyperlipidemia Hypertension Congestive heart failure chronic diastolic dysfunction presently hypovolemic -Metabolic acidosis secondary to renal failure for which patient is on sodium bicarbonate
[2018-06-27] MEDS: CHOLECALCIFEROL 1,000 UNIT TAB PO SCH (14:00)
[2018-06-27 15:49] LABS: HIV-1 RNA Not detected (Not detected)
[2018-06-27] MEDS: ERGOCALCIFEROL 50,000 UNIT CAP PO SCH (17:36)
[2018-06-27] MEDS: CALCIUM CARBONATE 500 MG CHEWABLE PO SCH (17:36)
[2018-06-27 20:28] LABS: Basophils % (A) 0 %; Eosinophils # (A) 0.5 k/uL (0-0.7); Eosinophils % (A) 2 %; HCT 25.8 % (39.0-53.0); Lymphocytes # (A) 1.7 k/uL (1.0-4.8); Lymphocytes % (A) 7 %; MCH 32.5 pg (25.0-35.0); MCHC 32.6 g/dL (31.0-37.0); MCV 99.5 fL (80.0-100.0); Macrocytosis Slight; Monocytes # (A) 0.7 k/uL (0-1.0); Monocytes % (A) 3 %; Neutrophils # (A) 21.6 k/uL (1.3-7.7); Neutrophils % (A) 87 %; Platelet Count 210 k/uL (150-450); RDW 14.5 % (11.5-15.5); WBC 24.8 k/uL (3.8-10.6)
[2018-06-27 20:41] LABS: HGB 8.4 gm/dL (13.0-17.5)
[2018-06-27] MEDS: SENNOSIDES-DOCUSATE SODIUM 1 EACH TAB PO SCH (21:07)
[2018-06-27] MEDS: ATORVASTATIN 10 MG TAB PO SCH (21:07)
[2018-06-28] MEDS: HYDROcodone/APAP 5-325MG 1 EACH TAB PO PRN ×2 (01:47→22:40)
[2018-06-28] MEDS: SODIUM BICARBONATE TAB 650 MG TAB PO SCH ×2 (08:11→22:39)
[2018-06-28] MEDS: CALCIUM CARBONATE 500 MG CHEWABLE PO SCH (08:11)
[2018-06-28] MEDS: EDOXABAN TOSYLATE 30 MG TABLET PO SCH (08:11)
[2018-06-28] MEDS: METOPROLOL SUCCINATE (ER) 100 MG TAB.ER.24H PO SCH (08:11)
[2018-06-28] MEDS: PANTOPRAZOLE 40 MG/10 ML VIAL IV SCH (08:11)
[2018-06-28] MEDS: MIDODRINE 5 MG TAB PO SCH (08:11)
[2018-06-28 09:04] LABS: Calcium 7.7 mg/dL (8.4-10.2); Magnesium 2.5 mg/dL (1.6-2.3); Potassium 4.7 mmol/L (3.5-5.1)
[2018-06-28] MEDS ORDERED: MIDODRINE 5 MG TAB ONE ×2 (12:00)
[2018-06-28] MEDS ORDERED: HYDROcodone/APAP 5-325MG 1 EACH TAB ONE (12:00)
[2018-06-28] MEDS ORDERED: CHOLECALCIFEROL 1,000 UNIT TAB ONE (12:00)
[2018-06-28] MEDS ORDERED: CALCIUM CARBONATE 500 MG CHEWABLE PO ONE ×2 (12:00)
--- NOTE | 2018-06-28 21:41 | P.PN ---
Subjective Progress Note Date: 06/28/18 Principal diagnosis: Right subtroch femur fracture Patient is seen at bedside this morning. He is postop day #3 from IT nail/IM hip screwright for subtroch femur fracture. He has pain at the surgical site as expected but denies any new complaints. He denies numbness, tingling or calf pain. Review of systems is negative for fever, chills, chest pain, shortness of breath or other Objective - Vital Signs Vital signs: Vital Signs Temp 97.7 F 06/28/18 07:29 Pulse 57 L 06/28/18 07:29 Resp 16 06/28/18 07:29 BP 114/54 06/28/18 07:29 Pulse Ox 95 06/28/18 07:29 Intake & Output 06/28/18 06/28/18 06/29/18 06:59 18:59 06:59 Intake Total 210 Output Total 400 Balance -190 Intake: Intake, IV Titration 210 Amount Sodium Chloride 0.9% 1, 210 000 ml @ 70 mls/hr IV . [id number] [facility] Rx#:[id number] Output: Urine 400 Other: Voiding Method Indwelling Catheter - Exam Inspection reveals a benign surgical wound. There is no active bleeding or drainage. Neurovascular status is intact throughout the lower extremity with motor and sensation fully intact. Calf is soft and nontender. 2+ dorsalis pedis pulse and less than 2 second cap refill is present. - Constitutional General appearance: Present: no acute distress - Labs CBC & Chem 7: 06/27/18 19:54 06/28/18 07:33 Labs: Abnormal Lab Results - Last 24 Hours (Table) 06/28/18 Range/Units 07:33 Sodium 135 L (137-145) mmol/L BUN 51 H (9-20) mg/dL Creatinine 1.75 H (0.66-1.25) mg/dL Glucose 101 H (74-99) mg/dL Calcium 7.7 L (8.4-10.2) mg/dL Magnesium 2.5 H (1.6-2.3) mg/dL Assessment and Plan (1) Fracture of hip Narrative/Plan: He will continue with routine postop orthopedic protocol including pain management, wound care, PT, DVT prophylaxis and medical management. Expect that he will transfer to rehab in next few days. Current Visit: Yes Status: Acute Priority: Medium Code(s): S72.009A - FRACTURE OF UNSP PART OF NECK OF UNSP FEMUR, INIT SNOMED Code(s): 515216755 Time with Patient: Less than 30
[2018-06-28] MEDS: ATORVASTATIN 10 MG TAB PO SCH (22:39)
[2018-06-28] MEDS: SENNOSIDES-DOCUSATE SODIUM 1 EACH TAB PO SCH (22:39)
[2018-06-29] MEDS: SODIUM CHLORIDE 0.9% 1,000 ML IV SCH ×2 (01:32→06:02)
[2018-06-29] MEDS: CALCIUM CARBONATE 500 MG CHEWABLE PO SCH ×4 (01:32→18:10)
[2018-06-29] MEDS: CHOLECALCIFEROL 1,000 UNIT TAB PO SCH ×2 (01:32→12:19)
[2018-06-29] MEDS: MIDODRINE 5 MG TAB PO SCH ×5 (01:32→18:09)
[2018-06-29] MEDS: METOPROLOL SUCCINATE (ER) 100 MG TAB.ER.24H PO SCH (08:45)
[2018-06-29] MEDS: SODIUM BICARBONATE TAB 650 MG TAB PO SCH ×2 (08:45→21:18)
[2018-06-29] MEDS: EDOXABAN TOSYLATE 30 MG TABLET PO SCH (08:45)
[2018-06-29] MEDS: PANTOPRAZOLE 40 MG/10 ML VIAL IV SCH (08:45)
[2018-06-29] MEDS: ACETAMINOPHEN TAB 325 MG TAB PO PRN (08:54)
--- NOTE | 2018-06-29 10:09 | P.PN ---
Subjective Progress Note Date: 06/28/18 Patient looks lethargic, complaining of fatigue hemoglobin dropped to 6 no evidence of GI bleed. Will transfuse on blood transfusion patient creatinine has worsened nephrology is following the patient. Hold off on any diuretic therapy at this time. 06/28/2018 Patient is still complaining of fatigue this event of blood transfusion I do not have any lab data available creatinine appears to have been improving Constitutional: As mentioned above Cardio vascular: denied any chest pain, palpitations Gastrointestinal denied any nausea vomiting Pulmonary: Denied any shortness of breath cough Neurologic denied any new focal deficits All inpatient medications were reviewed and appropriate changes in these medications as dictated in the interval history and assessment and plan. Objective - Vital Signs Vital signs: Vital Signs Temp 98.2 F 06/29/18 07:20 Pulse 60 06/29/18 07:20 Resp 12 06/29/18 08:56 BP 125/55 06/29/18 07:20 Pulse Ox 95 06/29/18 07:20 Intake & Output 06/28/18 06/29/18 06/29/18 18:59 06:59 18:59 Output Total 500 Balance -500 Output: Urine 500 Other: Voiding Method Indwelling Catheter Indwelling Catheter # Voids 900 - Exam PHYSICAL EXAMINATION: GENERAL: The patient is alert and oriented x3, not in any acute distress. Looks pale lethargic HEENT: Pupils are round and equally reacting to light. EOMI. No scleral icterus. Does have conjunctival pallor. Normocephalic, atraumatic. No pharyngeal erythema. No thyromegaly. CARDIOVASCULAR: S1 and S2 present. No murmurs, rubs, or gallops. PULMONARY: Chest is clear to auscultation, no wheezing or crackles. ABDOMEN: Soft, nontender, nondistended, normoactive bowel sounds. No palpable organomegaly. MUSCULOSKELETAL: No joint swelling or deformity. EXTREMITIES: No cyanosis, clubbing, or pedal edema. NEUROLOGICAL: Gross neurological examination did not reveal any focal deficits. SKIN: No rashes. - Labs CBC & Chem 7: 06/27/18 19:54 06/28/18 07:33 Assessment and Plan Plan: -Right hip intertrochanteric fracture status post open reduction and internal fixation: Pain management as per primary service avoid long-acting opiates because of his renal dysfunction -Acute blood loss anemia secondary to surgery: Since his hemoglobin is around 6 , dysuria 1 unit of blood transfusion -Acute kidney injury secondary to diuretics and Bactrim. Patient appears to some chronic kidney disease stage III. Nephrology is following the patient patient has hypertensive nephrosclerosis Atrial fibrillation: Presently rate controlled patient is on anticoagulation which may need to be held if his hemoglobin continues to drop History of prostate cancer history of colon cancer Hyperlipidemia Hypertension Congestive heart failure chronic diastolic dysfunction presently hypovolemic -Metabolic acidosis secondary to renal failure for which patient is on sodium bicarbonate
[2018-06-29 10:52] LABS: HCT 23.8 % (39.0-53.0); HGB 7.7 gm/dL (13.0-17.5); MCH 32.7 pg (25.0-35.0); MCHC 32.4 g/dL (31.0-37.0); MCV 100.9 fL (80.0-100.0); Macrocytosis Slight; Mean Platelet Volume 7.5; Platelet Count 213 k/uL (150-450); RBC 2.36 m/uL (4.30-5.90); RDW 14.6 % (11.5-15.5); WBC 20.8 k/uL (3.8-10.6)
[2018-06-29 11:03] LABS: Calcium 7.8 mg/dL (8.4-10.2)
--- NOTE | 2018-06-29 13:10 | P.PN ---
Subjective Progress Note Date: 06/29/18 Seen and examined for the follow-up of acute kidney injury. Sitting comfortably in the chair no nausea vomiting diarrhea. Still has Lockwood catheter urine appears dark but good in volume. Objective - Vital Signs Vital signs: Vital Signs Temp 98.2 F 06/29/18 07:20 Pulse 60 06/29/18 07:20 Resp 12 06/29/18 08:56 BP 125/55 06/29/18 07:20 Pulse Ox 95 06/29/18 07:20 Intake & Output 06/28/18 06/29/18 06/29/18 18:59 06:59 18:59 Output Total 500 Balance -500 Output: Urine 500 Other: Voiding Method Indwelling Catheter Indwelling Catheter # Voids 900 - Exam No acute distress S1-S2 heard Lungs clear No edema Lockwood - Labs CBC & Chem 7: 06/29/18 10:25 06/29/18 10:25 Labs: Abnormal Lab Results - Last 24 Hours (Table) 06/29/18 06/29/18 Range/Units 10:25 10:25 WBC 20.8 H (3.8-10.6) k/uL RBC 2.36 L (4.30-5.90) m/uL Hgb 7.7 L (13.0-17.5) gm/dL Hct 23.8 L (39.0-53.0) % MCV 100.9 H (80.0-100.0) fL Sodium 135 L (137-145) mmol/L Chloride 108 H (98-107) mmol/L Carbon Dioxide 21 L (22-30) mmol/L BUN 41 H (9-20) mg/dL Creatinine 1.36 H (0.66-1.25) mg/dL Glucose 150 H (74-99) mg/dL Calcium 7.8 L (8.4-10.2) mg/dL Assessment and Plan Assessment: #1 acute kidney injury secondary to hemodynamic ATN creatinine improving #2 CK D3 secondary to nephrosclerosis baseline creatinine 1.1-1.3. #3 hypertension with C daily currently hypotensive on midodrine #4 anemia with Ckd #5 right hip fracture #6 mild hyperkalemia Plan: #1 renal functions improving. IV fluids can be stopped by tomorrow. #2 removal Lockwood catheter and monitor postvoid residuals. #3 avoid nephrotoxic agents and hypotensive episodes #4 labs in the morning
--- NOTE | 2018-06-29 13:16 | P.PN ---
Subjective Progress Note Date: 06/29/18 Principal diagnosis: Right subtroch femur fracture Patient is seen at bedside this morning. He is postop day #4 from IT nail/IM hip screw for right subtroch femur fracture. He has pain at the surgical site as expected but denies any new complaints. He denies numbness, tingling or calf pain. Review of systems is negative for fever, chills, chest pain, shortness of breath or other Objective - Vital Signs Vital signs: Vital Signs Temp 98.2 F 06/29/18 07:20 Pulse 60 06/29/18 07:20 Resp 12 06/29/18 08:56 BP 125/55 06/29/18 07:20 Pulse Ox 95 06/29/18 07:20 Intake & Output 06/28/18 06/29/18 06/29/18 18:59 06:59 18:59 Output Total 500 Balance -500 Output: Urine 500 Other: Voiding Method Indwelling Catheter Indwelling Catheter # Voids 900 - Exam Inspection reveals a benign surgical wound. There is no active bleeding or drainage. Neurovascular status is intact throughout the lower extremity with motor and sensation fully intact. Calf is soft and nontender. 2+ dorsalis pedis pulse and less than 2 second cap refill is present. - Constitutional General appearance: Present: no acute distress - Labs CBC & Chem 7: 06/29/18 10:25 06/29/18 10:25 Labs: Abnormal Lab Results - Last 24 Hours (Table) 06/29/18 06/29/18 Range/Units 10:25 10:25 WBC 20.8 H (3.8-10.6) k/uL RBC 2.36 L (4.30-5.90) m/uL Hgb 7.7 L (13.0-17.5) gm/dL Hct 23.8 L (39.0-53.0) % MCV 100.9 H (80.0-100.0) fL Sodium 135 L (137-145) mmol/L Chloride 108 H (98-107) mmol/L Carbon Dioxide 21 L (22-30) mmol/L BUN 41 H (9-20) mg/dL Creatinine 1.36 H (0.66-1.25) mg/dL Glucose 150 H (74-99) mg/dL Calcium 7.8 L (8.4-10.2) mg/dL Assessment and Plan (1) Fracture of hip Narrative/Plan: He will continue with routine postop orthopedic protocol including pain management, wound care, PT, DVT prophylaxis and medical management. Expect that he will transfer to rehab in next few days. Current Visit: Yes Status: Acute Priority: Medium Code(s): S72.009A - FRACTURE OF UNSP PART OF NECK OF UNSP FEMUR, INIT SNOMED Code(s): 923081231 Time with Patient: Less than 30
--- NOTE | 2018-06-29 16:41 | XR ---
EXAMINATION TYPE: XR chest 1V portable DATE OF EXAM: 06/29/2018 COMPARISON: Prior chest x-ray 06/23/2018 HISTORY: Abnormal chest x-ray, sepsis rule out TECHNIQUE: Single frontal view of the chest is obtained. FINDINGS: Heart remains enlarged. Intracardiac defibrillator leads are noted as on prior exam. No ev ident pneumothorax or pleural effusion. There are cardiac leads and the patient is rotated. Aorta is dense. Prominent lung volume may be indicative of underlying COPD. IMPRESSION: Stable cardiomegaly. Follow-up as indicated.
--- NOTE | 2018-06-29 17:46 | P.PN ---
Subjective Patient looks lethargic, complaining of fatigue hemoglobin dropped to 6 no evidence of GI bleed. Will transfuse on blood transfusion patient creatinine has worsened nephrology is following the patient. Hold off on any diuretic therapy at this time. 06/28/2018 Patient is still complaining of fatigue this event of blood transfusion I do not have any lab data available creatinine appears to have been improving 06/29/2018 Patient's creatinine improved 1.36 close to his baseline patient is feeling much better probably because of the improvement in serum creatinine. Patient's white blood cell count remains and 20,000 and although there is improvement patient had this leukocytosis for a while which is probably reactive but will obtain septic workup with the urine cultures chest x-ray patient does have some cough doesn't look toxic does have a Lockwood catheter. Constitutional: As mentioned above Cardio vascular: denied any chest pain, palpitations Gastrointestinal denied any nausea vomiting Pulmonary: Denied any shortness of breath cough Neurologic denied any new focal deficits All inpatient medications were reviewed and appropriate changes in these medications as dictated in the interval history and assessment and plan. Objective - Vital Signs Vital signs: Vital Signs Temp 98.1 F 06/29/18 14:39 Pulse 61 06/29/18 14:39 Resp 12 06/29/18 08:56 BP 147/54 06/29/18 14:39 Pulse Ox 98 06/29/18 14:39 Intake & Output 06/28/18 06/29/18 06/29/18 18:59 06:59 18:59 Intake Total 960 Output Total 500 Balance -500 960 Intake: Intake, IV Titration 560 Amount Sodium Chloride 0.9% 1, 560 000 ml @ 70 mls/hr IV . [id number] [facility] Rx#:[id number] Oral 400 Output: Urine 500 Other: Voiding Method Indwelling Catheter Indwelling Catheter # Voids 900 - Exam PHYSICAL EXAMINATION: GENERAL: The patient is alert and oriented x3, not in any acute distress. Looks pale lethargic HEENT: Pupils are round and equally reacting to light. EOMI. No scleral icterus. Does have conjunctival pallor. Normocephalic, atraumatic. No pharyngeal erythema. No thyromegaly. CARDIOVASCULAR: S1 and S2 present. No murmurs, rubs, or gallops. PULMONARY: Chest is clear to auscultation, no wheezing or crackles. ABDOMEN: Soft, nontender, nondistended, normoactive bowel sounds. No palpable organomegaly. MUSCULOSKELETAL: No joint swelling or deformity. EXTREMITIES: No cyanosis, clubbing, or pedal edema. NEUROLOGICAL: Gross neurological examination did not reveal any focal deficits. SKIN: No rashes. - Labs CBC & Chem 7: 06/29/18 10:25 06/29/18 10:25 Labs: Abnormal Lab Results - Last 24 Hours (Table) 06/29/18 06/29/18 Range/Units 10:25 10:25 WBC 20.8 H (3.8-10.6) k/uL RBC 2.36 L (4.30-5.90) m/uL Hgb 7.7 L (13.0-17.5) gm/dL Hct 23.8 L (39.0-53.0) % MCV 100.9 H (80.0-100.0) fL Sodium 135 L (137-145) mmol/L Chloride 108 H (98-107) mmol/L Carbon Dioxide 21 L (22-30) mmol/L BUN 41 H (9-20) mg/dL Creatinine 1.36 H (0.66-1.25) mg/dL Glucose 150 H (74-99) mg/dL Calcium 7.8 L (8.4-10.2) mg/dL Assessment and Plan Plan: -Right hip intertrochanteric fracture status post open reduction and internal fixation: Pain management as per primary service avoid long-acting opiates because of his renal dysfunction -Acute blood loss anemia secondary to surgery: See a total of 2 units of blood transfusion, dysuria 1 unit of blood transfusion, present hemoglobin is 7.7 -Acute kidney injury secondary to diuretics and Bactrim. Patient appears to some chronic kidney disease stage III. Nephrology is following the patient patient has hypertensive nephrosclerosis, creatinine improving close to his baseline -Leukocytosis reactive secondary to anemia in surgery will do septic workup as mentioned above Atrial fibrillation: Presently rate controlled patient is on anticoagulation which may need to be held if his hemoglobin continues to drop History of prostate cancer history of colon cancer Hyperlipidemia Hypertension Congestive heart failure chronic diastolic dysfunction presently hypovolemic -Metabolic acidosis secondary to renal failure for which patient is on sodium bicarbonate
[2018-06-29 18:25] LABS: Appearance,Urine Clear (Clear); Bacteria,Urine Rare /hpf; Bilirubin,Urine Negative (Negative); Blood,Urine Small (Negative); Color,Urine Yellow; Glucose,Urine (UA) Negative (Negative); Granular Casts,Urine 3 /lpf (0); Ketones,Urine Negative (Negative); Leukocyte Esterase,Urine Negative (Negative); Mucus,Urine Rare /hpf; Nitrite,Urine Negative (Negative); Protein,Urine Trace (Negative); RBC,Urine 1 /hpf (0-5); Specific Gravity,Urine 1.011 (1.001-1.035); Urobilinogen,Urine <2.0 mg/dL (<2.0); WBC,Urine 2 /hpf (0-5)
[2018-06-29] MEDS: ATORVASTATIN 10 MG TAB PO SCH (21:18)
[2018-06-29] MEDS: SENNOSIDES-DOCUSATE SODIUM 1 EACH TAB PO SCH (21:18)
[2018-06-29] MEDS: HYDROcodone/APAP 5-325MG 1 EACH TAB PO PRN (21:18)
[2018-06-30] MEDS: SODIUM CHLORIDE 0.9% 1,000 ML IV SCH ×2 (02:39→15:39)
[2018-06-30 07:15] LABS: HCT 22.6 % (39.0-53.0); HGB 7.2 gm/dL (13.0-17.5); Hypochromasia Slight; MCH 31.7 pg (25.0-35.0); MCHC 31.9 g/dL (31.0-37.0); MCV 99.3 fL (80.0-100.0); Macrocytosis Slight; Mean Platelet Volume 7.3; Platelet Count 212 k/uL (150-450); RBC 2.28 m/uL (4.30-5.90); RDW 14.9 % (11.5-15.5); WBC 16.7 k/uL (3.8-10.6)
[2018-06-30 07:39] LABS: Calcium 7.8 mg/dL (8.4-10.2); Magnesium 2.4 mg/dL (1.6-2.3); Potassium 4.8 mmol/L (3.5-5.1)
[2018-06-30] MEDS: METOPROLOL SUCCINATE (ER) 100 MG TAB.ER.24H PO SCH (08:45)
[2018-06-30] MEDS: CALCIUM CARBONATE 500 MG CHEWABLE PO SCH ×3 (08:45→18:03)
[2018-06-30] MEDS: MIDODRINE 5 MG TAB PO SCH ×3 (08:45→18:03)
[2018-06-30] MEDS: SODIUM BICARBONATE TAB 650 MG TAB PO SCH ×2 (08:45→21:40)
[2018-06-30] MEDS: PANTOPRAZOLE 40 MG/10 ML VIAL IV SCH (08:46)
[2018-06-30] MEDS: EDOXABAN TOSYLATE 30 MG TABLET PO SCH (08:46)
[2018-06-30] MEDS: ACETAMINOPHEN TAB 325 MG TAB PO PRN (08:46)
--- NOTE | 2018-06-30 09:52 | P.PN ---
Subjective Patient is seen in follow-up for acute kidney injury on chronic kidney disease. Patient has chronic kidney disease stage III with baseline creatinine in the range of 1.1-1.3 secondary to nephrosclerosis. Renal function had worsened due to hypotension and is now gradually improving. Patient underwent right hip nailing on June 25. He is nonoliguric. Currently has a Lockwood catheter in place. Denies chest pain or shortness of breath. Vital signs are stable. General: The patient appeared well nourished and normally developed. HEENT: Head exam is unremarkable. Neck is without jugular venous distension. LUNGS: Lungs are clear to auscultation and percussion. Breath sounds decreased. HEART: Rate and Rhythm are regular. First and second heart sounds normal. No murmurs, rubs or gallops. ABDOMEN: Abdominal exam reveals normal bowel sounds. Non-tender and non- distended. No evidence of peritonitis. EXTREMITITES: No clubbing, cyanosis, or edema. Objective - Vital Signs Vital signs: Vital Signs Temp 97.8 F 06/30/18 00:23 Pulse 60 06/30/18 00:23 Resp 16 06/30/18 00:46 BP 122/61 06/30/18 00:23 Pulse Ox 97 06/30/18 00:23 Intake & Output 06/29/18 06/30/18 06/30/18 18:59 06:59 18:59 Intake Total 960 Output Total 300 Balance 960 -300 Intake: Intake, IV Titration 560 Amount Sodium Chloride 0.9% 1, 560 000 ml @ 70 mls/hr IV . [id number] [facility] Rx#:[id number] Oral 400 Output: Urine 300 Other: Voiding Method Indwelling Catheter Indwelling Catheter Indwelling Catheter - Labs CBC & Chem 7: 06/30/18 06:25 06/30/18 06:25 Labs: Abnormal Lab Results - Last 24 Hours (Table) 06/29/18 06/29/18 06/29/18 Range/Units 10:25 10:25 18:11 WBC 20.8 H (3.8-10.6) k/uL RBC 2.36 L (4.30-5.90) m/uL Hgb 7.7 L (13.0-17.5) gm/dL Hct 23.8 L (39.0-53.0) % MCV 100.9 H (80.0-100.0) fL Sodium 135 L (137-145) mmol/L Chloride 108 H (98-107) mmol/L Carbon Dioxide 21 L (22-30) mmol/L BUN 41 H (9-20) mg/dL Creatinine 1.36 H (0.66-1.25) mg/dL Glucose 150 H (74-99) mg/dL Calcium 7.8 L (8.4-10.2) mg/dL Magnesium (1.6-2.3) mg/dL Urine Protein Trace H (Negative) Urine Blood Small H (Negative) Urine Bacteria Rare H (None) /hpf Urine Mucus Rare H (None) /hpf 06/30/18 06/30/18 Range/Units 06:25 06:25 WBC 16.7 H (3.8-10.6) k/uL RBC 2.28 L (4.30-5.90) m/uL Hgb 7.2 L (13.0-17.5) gm/dL Hct 22.6 L (39.0-53.0) % MCV (80.0-100.0) fL Sodium 136 L (137-145) mmol/L Chloride 109 H (98-107) mmol/L Carbon Dioxide (22-30) mmol/L BUN 32 H (9-20) mg/dL Creatinine 1.27 H (0.66-1.25) mg/dL Glucose (74-99) mg/dL Calcium 7.8 L (8.4-10.2) mg/dL Magnesium 2.4 H (1.6-2.3) mg/dL Urine Protein (Negative) Urine Blood (Negative) Urine Bacteria (None) /hpf Urine Mucus (None) /hpf Microbiology - Last 24 Hours (Table) 06/29/18 18:11 Urine Culture - Preliminary Urine,Catheterized Assessment and Plan Plan: Assessment: 1. Acute kidney injury secondary to ATN secondary to hypotension. Renal function gradually improving. 2. Chronic kidney disease stage III for pacing creatinine in the range of 1.1- 1.3 secondary to nephrosclerosis. 3. Hyperkalemia secondary to acute kidney injury and metabolic acidosis. Better. 4. Hypertension with chronic kidney disease. Uncontrolled. 5. Right femoral neck fracture status post intramedullary nailing on June 25. 6. 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 7. Metabolic acidosis secondary to acute kidney injury maintained on oral sodium bicarbonate. Improved. Plan: Maintain normal saline at 70 mL an hour. Continue midodrine for now. Avoid nephrotoxins. Repeat electrolytes in the morning. Discontinue Lockwood catheter. Monitor serial postvoid residuals to make sure no underlying urinary retention.
[2018-06-30] MEDS: CHOLECALCIFEROL 1,000 UNIT TAB PO SCH (12:05)
--- NOTE | 2018-06-30 12:46 | P.PN ---
Subjective Patient sitting in chair at bedside in no complaints expressed. Lockwood catheter removed awaiting to see patient can void. Patient medically stable at this point Objective - Vital Signs Vital signs: Vital Signs Temp 97.8 F 06/30/18 00:23 Pulse 60 06/30/18 00:23 Resp 16 06/30/18 00:46 BP 122/61 06/30/18 00:23 Pulse Ox 97 06/30/18 00:23 Intake & Output 06/29/18 06/30/18 06/30/18 18:59 06:59 18:59 Intake Total 960 Output Total 300 1400 Balance 960 -300 -1400 Intake: Intake, IV Titration 560 Amount Sodium Chloride 0.9% 1, 560 000 ml @ 70 mls/hr IV . [id number] [facility] Rx#:[id number] Oral 400 Output: Urine 300 1400 Uretheral (Lockwood) 1400 Other: Voiding Method Indwelling Catheter Indwelling Catheter Indwelling Catheter - Constitutional General appearance: Present: mild distress - EENT Eyes: Present: PERRLA Ears: bilateral: normal - Neck Neck: Present: normal ROM - Respiratory Respiratory: bilateral: CTA - Cardiovascular Rhythm: regular Abnormal Heart Sounds: Present: systolic murmur - Gastrointestinal General gastrointestinal: Present: soft - Integumentary Integumentary: Present: normal - Neurologic Neurologic: Present: CNII-XII intact - Musculoskeletal Musculoskeletal: Present: generalized weakness - Psychiatric Psychiatric: Present: A&O x's 3, appropriate affect, intact judgment & insight - Labs CBC & Chem 7: 06/30/18 06:25 06/30/18 06:25 Labs: Abnormal Lab Results - Last 24 Hours (Table) 06/25/18 06/29/18 06/30/18 Range/Units 14:23 18:11 06:25 WBC 16.7 H (3.8-10.6) k/uL RBC 2.28 L (4.30-5.90) m/uL Hgb 7.2 L (13.0-17.5) gm/dL Hct 22.6 L (39.0-53.0) % Sodium (137-145) mmol/L Chloride (98-107) mmol/L BUN (9-20) mg/dL Creatinine (0.66-1.25) mg/dL Calcium (8.4-10.2) mg/dL Magnesium (1.6-2.3) mg/dL Urine Protein Trace H (Negative) Urine Blood Small H (Negative) Urine Bacteria Rare H (None) /hpf Urine Mucus Rare H (None) /hpf Crossmatch See Detail 06/30/18 Range/Units 06:25 WBC (3.8-10.6) k/uL RBC (4.30-5.90) m/uL Hgb (13.0-17.5) gm/dL Hct (39.0-53.0) % Sodium 136 L (137-145) mmol/L Chloride 109 H (98-107) mmol/L BUN 32 H (9-20) mg/dL Creatinine 1.27 H (0.66-1.25) mg/dL Calcium 7.8 L (8.4-10.2) mg/dL Magnesium 2.4 H (1.6-2.3) mg/dL Urine Protein (Negative) Urine Blood (Negative) Urine Bacteria (None) /hpf Urine Mucus (None) /hpf Crossmatch Microbiology - Last 24 Hours (Table) 06/29/18 18:11 Urine Culture - Preliminary Urine,Catheterized Assessment and Plan Plan: Assessment Right hip intertrochanteric trochanter fracture post open reduction and internal fixation Anemia acute blood loss secondary to surgery chronic from chronic disease Acute kidney injury secondary to diuretics chronic kidney disease stage III nephrology is managing Leukocytosis atrial fibrillation History of prostate cancer colon cancer hyperlipidemia Hypertension Hyperlipidemia Congestive heart failure diastolic dysfunction cardiomyopathy with pacemaker Plan Patient needs to void after Lockwood removal Needs clearance by nephrology Patient medically stable for transfer to [facility]
--- NOTE | 2018-06-30 15:31 | P.PN ---
Subjective Progress Note Date: 06/30/18 Principal diagnosis: Right subtrochanteric femur fracture status-post operative fixation with long intramedullary hip nail Chronic kidney disease Patient is an 88-year-old male past medical history of atrial fibrillation with pacemaker on Savaysa, history of colon cancer, hyperlipidemia, hypertension, osteoarthritis presented to the ER 06/24/18 with complaints of right hip pain. Patient states he was walking up his stairs at home when he turned suddenly and felt a pop and a crack in his hip. He states he could not continue walking and had to call to his friend for help, who helped him down on the stairs. Patient then immediately called EMS for help, the patient was brought to [facility] ER for further evaluation and treatment. On presentation to the ER the patient was found to have a right displaced subtrochanteric femur fracture. The patient also noted right knee pain, however currently patient states that this is a chronic problem and he sees Dr. Johnathan Washington as an outpatient for osteoarthritis. Xrays in the ER showed severe osteoarthritis, and no fractures. Patient denies pain anywhere else in the body. Fracture is suspected to be pathologic, based on the mechanism of injury. Today is post-operative day #5. Patient's is postoperative course has been complicated by postoperative anemia and acute on chronic kidney disease. Patient was transfused 2 units of RBCs on 06/26/18, per medicine. WBCs have been elevated post-operatively, therefore medicine is currently performing a sepsis workup. The patient states his pain is well-controlled. He states he does experience pain in the right hip when he is up with therapy. He has been transferring to the chair with therapy and a walker. He is tolerating his diet well. He denies chest pain, shortness of breath, nausea, vomiting, fever, chills, numbness or tingling of the right lower extremity. He denies any new orthopedic complaints today. Objective - Vital Signs Vital signs: Vital Signs Temp 97.8 F 06/30/18 00:23 Pulse 60 06/30/18 00:23 Resp 16 06/30/18 00:46 BP 122/61 06/30/18 00:23 Pulse Ox 97 06/30/18 00:23 Intake & Output 06/29/18 06/30/18 06/30/18 18:59 06:59 18:59 Intake Total 960 Output Total 300 Balance 960 -300 Intake: Intake, IV Titration 560 Amount Sodium Chloride 0.9% 1, 560 000 ml @ 70 mls/hr IV . [id number] [facility] Rx#:[id number] Oral 400 Output: Urine 300 Other: Voiding Method Indwelling Catheter Indwelling Catheter - Exam On exam, the patient is sitting up in the bed in no acute distress. Patient is alert and oriented x3. On inspection of the right hip, there is a dressing in place which is clean, dry, and intact. Dressing is taken down, and the surgical incision shows no signs of infection; there is no erythema. Small amount of clear drainage present on bandage, no active drainage. Calves are soft and nontender bilaterally. Lower extremity compression cuffs are in place bilaterally. Patient has full range of motion of the ankles and toes bilaterally. Neurovascular is intact of the lower extremities bilaterally. Dorsalis pedis pulse +2 bilaterally, brisk capillary refill of lower extremities bilaterally. - Labs CBC & Chem 7: 06/30/18 06:25 06/30/18 06:25 Labs: Abnormal Lab Results - Last 24 Hours (Table) 06/29/18 06/29/18 06/29/18 Range/Units 10:25 10:25 18:11 WBC 20.8 H (3.8-10.6) k/uL RBC 2.36 L (4.30-5.90) m/uL Hgb 7.7 L (13.0-17.5) gm/dL Hct 23.8 L (39.0-53.0) % MCV 100.9 H (80.0-100.0) fL Sodium 135 L (137-145) mmol/L Chloride 108 H (98-107) mmol/L Carbon Dioxide 21 L (22-30) mmol/L BUN 41 H (9-20) mg/dL Creatinine 1.36 H (0.66-1.25) mg/dL Glucose 150 H (74-99) mg/dL Calcium 7.8 L (8.4-10.2) mg/dL Magnesium (1.6-2.3) mg/dL Urine Protein Trace H (Negative) Urine Blood Small H (Negative) Urine Bacteria Rare H (None) /hpf Urine Mucus Rare H (None) /hpf 06/30/18 06/30/18 Range/Units 06:25 06:25 WBC 16.7 H (3.8-10.6) k/uL RBC 2.28 L (4.30-5.90) m/uL Hgb 7.2 L (13.0-17.5) gm/dL Hct 22.6 L (39.0-53.0) % MCV (80.0-100.0) fL Sodium 136 L (137-145) mmol/L Chloride 109 H (98-107) mmol/L Carbon Dioxide (22-30) mmol/L BUN 32 H (9-20) mg/dL Creatinine 1.27 H (0.66-1.25) mg/dL Glucose (74-99) mg/dL Calcium 7.8 L (8.4-10.2) mg/dL Magnesium 2.4 H (1.6-2.3) mg/dL Urine Protein (Negative) Urine Blood (Negative) Urine Bacteria (None) /hpf Urine Mucus (None) /hpf Microbiology - Last 24 Hours (Table) 06/29/18 18:11 Urine Culture - Preliminary Urine,Catheterized Assessment and Plan Assessment: Right subtrochanteric femur fracture status-post operative fixation with long intramedullary hip nail Chronic kidney disease Plan: - Toe-touch weight bearing of the right lower extremity. Ice and elevate right hip for pain and swelling control. Up with therapy, up with a walker. - Continue current pain management. Will defer post-operative anticoagulation to medicine. - Fracture is suspected to be pathologic, pathology report of surgical specimen pending. - 2 doses of post-operative antibiotics complete. - Physical therapy for gait and balance training. - Appreciate medicine, cardiology, and nephrology consults. - Case management consulted for discharge planning. - Patient discussed with Dr. Vazquez.
[2018-06-30] MEDS: ERGOCALCIFEROL 50,000 UNIT CAP PO SCH (18:03)
[2018-06-30] MEDS: SENNOSIDES-DOCUSATE SODIUM 1 EACH TAB PO SCH (21:35)
[2018-06-30] MEDS: ATORVASTATIN 10 MG TAB PO SCH (21:40)
[2018-07-01] MEDS: SODIUM CHLORIDE 0.9% 1,000 ML IV SCH (04:47)
[2018-07-01 07:36] LABS: Calcium 7.8 mg/dL (8.4-10.2); Magnesium 2.2 mg/dL (1.6-2.3); Potassium 4.5 mmol/L (3.5-5.1)
[2018-07-01] MEDS: METOPROLOL SUCCINATE (ER) 100 MG TAB.ER.24H PO SCH (09:03)
[2018-07-01] MEDS: CALCIUM CARBONATE 500 MG CHEWABLE PO SCH ×3 (09:03→17:53)
[2018-07-01] MEDS: SODIUM BICARBONATE TAB 650 MG TAB PO SCH ×2 (09:03→21:48)
[2018-07-01] MEDS: PANTOPRAZOLE 40 MG TABLET PO SCH (09:04)
[2018-07-01] MEDS: EDOXABAN TOSYLATE 30 MG TABLET PO SCH (09:04)
[2018-07-01] MEDS: CHOLECALCIFEROL 1,000 UNIT TAB PO SCH (09:04)
[2018-07-01] MEDS: MIDODRINE 5 MG TAB PO SCH ×3 (09:04→17:53)
--- NOTE | 2018-07-01 09:46 | P.PN ---
Subjective Progress Note Date: 07/01/18 Principal diagnosis: Right subtrochanteric femur fracture status-post operative fixation with long intramedullary hip nail Chronic kidney disease Patient is an 88-year-old male past medical history of atrial fibrillation with pacemaker on Savaysa, history of colon cancer, hyperlipidemia, hypertension, osteoarthritis presented to the ER 06/24/18 with complaints of right hip pain. Patient states he was walking up his stairs at home when he turned suddenly and felt a pop and a crack in his hip. He states he could not continue walking and had to call to his friend for help, who helped him down on the stairs. Patient then immediately called EMS for help, the patient was brought to [facility] ER for further evaluation and treatment. On presentation to the ER the patient was found to have a right displaced subtrochanteric femur fracture. The patient also noted right knee pain, however currently patient states that this is a chronic problem and he sees Dr. Johnathan Washington as an outpatient for osteoarthritis. Xrays in the ER showed severe osteoarthritis, and no fractures. Patient denies pain anywhere else in the body. Fracture is suspected to be pathologic, based on the mechanism of injury. Today is post-operative day #6. Patient's is postoperative course has been complicated by postoperative anemia and acute on chronic kidney disease. Patient was transfused 2 units of RBCs on 06/26/18, per medicine. Currently, the patient states he is doing well. He states his hip pain is well controlled, he only experiences pain when he is up with therapy. He has been transferring to the chair without issue with the walker and assistance. He is tolerating his diet well. He denies chest pain, shortness of breath, nausea, vomiting, fever, chills, numbness or tingling of the right lower extremity. He denies any new orthopedic complaints today. Objective - Vital Signs Vital signs: Vital Signs Temp 98.0 F 07/01/18 07:41 Pulse 63 07/01/18 07:41 Resp 16 07/01/18 07:41 BP 141/70 07/01/18 07:41 Pulse Ox 98 07/01/18 07:41 Intake & Output 06/30/18 07/01/18 07/01/18 18:59 06:59 18:59 Intake Total 800 800 Output Total 1600 400 Balance -800 400 Weight 80.739 kg Intake: Intake, IV Titration 560 700 Amount Sodium Chloride 0.9% 1, 560 700 000 ml @ 70 mls/hr IV . [id number] [facility] Rx#:[id number] Oral 240 100 Output: Urine 1600 400 Uretheral (Lockwood) 1400 Other: Voiding Method Indwelling Catheter Toilet # Voids 1 - Exam On exam, the patient is sitting up in the bed in no acute distress. Patient is alert and oriented x3. On inspection of the right hip, there is a dressing in place with yellow, serous drainage present. Dressing is taken down, and the surgical incision shows no signs of infection; there is no erythema, warmth, or fluctuance. Active drainage of yellow, clear serous fluid from incision sites. Calves are soft and nontender bilaterally. Lower extremity compression cuffs are in place bilaterally. Patient has full range of motion of the ankles and toes bilaterally. Neurovascular is intact of the lower extremities bilaterally. Dorsalis pedis pulse +2 bilaterally, brisk capillary refill of lower extremities bilaterally. - Labs CBC & Chem 7: 06/30/18 06:25 07/01/18 06:24 Labs: Abnormal Lab Results - Last 24 Hours (Table) 06/25/18 07/01/18 Range/Units 14:23 06:24 Chloride 111 H (98-107) mmol/L BUN 26 H (9-20) mg/dL Glucose 100 H (74-99) mg/dL Calcium 7.8 L (8.4-10.2) mg/dL Crossmatch See Detail Microbiology - Last 24 Hours (Table) 06/29/18 18:11 Urine Culture - Final Urine,Catheterized Assessment and Plan Assessment: Right subtrochanteric femur fracture status-post operative fixation with long intramedullary hip nail Chronic kidney disease Plan: - Toe-touch weight bearing of the right lower extremity. Ice and elevate right hip for pain and swelling control. Up with therapy, up with a walker. - Patient will be placed prophylactic antibiotics due to increase of incision site drainage, Keflex 500mg q12h for 10 days. Dressing changes once dressing becomes saturated. He will follow-up in the office with Dr. Vazquez in 1 week following discharge for a soft tissue check. - Continue current pain management. Will defer post-operative anticoagulation to medicine. - Fracture is suspected to be pathologic, pathology report of surgical specimen pending. - Physical therapy for gait and balance training. - Appreciate medicine and nephrology consults. - Case management consulted for discharge planning. Planning on discharge to [facility] within next 24 hours, pending medical clearance. - Patient discussed with Dr. Vazquez.
[2018-07-01] MEDS: CEPHALEXIN 500 MG CAP PO SCH ×2 (09:56→21:49)
--- NOTE | 2018-07-01 11:27 | P.PN ---
Subjective Patient is seen in follow-up for acute kidney injury on chronic kidney disease. Patient has chronic kidney disease stage III with baseline creatinine in the range of 1.1-1.3 secondary to nephrosclerosis. Renal function had worsened due to hypotension and is now gradually improving. Patient underwent right hip nailing on June 25. He is nonoliguric. Lockwood catheter was removed June 30. Denies chest pain or shortness of breath. Vital signs are stable. General: The patient appeared well nourished and normally developed. HEENT: Head exam is unremarkable. Neck is without jugular venous distension. LUNGS: Lungs are clear to auscultation and percussion. Breath sounds decreased. HEART: Rate and Rhythm are regular. First and second heart sounds normal. No murmurs, rubs or gallops. ABDOMEN: Abdominal exam reveals normal bowel sounds. Non-tender and non- distended. No evidence of peritonitis. EXTREMITITES: No clubbing, cyanosis, or edema. Objective - Vital Signs Vital signs: Vital Signs Temp 98.0 F 07/01/18 07:41 Pulse 63 07/01/18 07:41 Resp 16 07/01/18 07:41 BP 141/70 07/01/18 07:41 Pulse Ox 98 07/01/18 07:41 Intake & Output 06/30/18 07/01/18 07/01/18 18:59 06:59 18:59 Intake Total 800 800 296 Output Total 1600 400 Balance -800 400 296 Weight 80.739 kg Intake: Intake, IV Titration 560 700 Amount Sodium Chloride 0.9% 1, 560 700 000 ml @ 70 mls/hr IV . [id number] [facility] Rx#:[id number] Oral 240 100 296 Output: Urine 1600 400 Uretheral (Lockwood) 1400 Other: Voiding Method Indwelling Catheter Toilet # Voids 1 - Labs CBC & Chem 7: 06/30/18 06:25 07/01/18 06:24 Labs: Abnormal Lab Results - Last 24 Hours (Table) 07/01/18 Range/Units 06:24 Chloride 111 H (98-107) mmol/L BUN 26 H (9-20) mg/dL Glucose 100 H (74-99) mg/dL Calcium 7.8 L (8.4-10.2) mg/dL Microbiology - Last 24 Hours (Table) 06/29/18 18:11 Urine Culture - Final Urine,Catheterized Assessment and Plan Plan: Assessment: 1. Acute kidney injury secondary to ATN secondary to hypotension. Renal function gradually improving. 2. Chronic kidney disease stage III for pacing creatinine in the range of 1.1- 1.3 secondary to nephrosclerosis. 3. Hyperkalemia secondary to acute kidney injury and metabolic acidosis. Better. 4. Hypertension with chronic kidney disease. Controlled. 5. Right femoral neck fracture status post intramedullary nailing on June 25. 6. 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 7. Metabolic acidosis secondary to acute kidney injury maintained on oral sodium bicarbonate. Improved. Plan: Hep-Lock IV fluids. Continue midodrine for now. Avoid nephrotoxins. Repeat electrolytes in the morning. Lockwood catheter removed June 30.
--- NOTE | 2018-07-01 11:44 | P.PN ---
Progress Note - Text Nurse reported that patient has been having a lot of drainage from the wound. Was addressed by orthopedics. Patient otherwise cleared for transferred to [facility]. Hopeful discharge tomorrow
--- NOTE | 2018-07-01 15:13 | CDI ---
Documentation Clarification Form Date: 07/01/2018 3:07:32 PM From: Marva Rizo CCS, CCDS Admit Date: 06/23/2018 11:42:00 PM Patient Name: Jabari Alves Visit Number: [id number] Discharge Date: ATTENTION: The Clinical Documentation Specialists (CDI) and [facility] Coding Staff appreciate your assistance in clarifying documentation. Please respond to the clarification below the line at the bottom and electronically sign. The CDI & [facility] Coding staff will review the response and follow-up if needed. Please note: Queries are made part of the Legal Health Record. If you have any questions, please contact the author of this message via ITS. Dr. Lobo Burch: Anemia chronic disease & postoperative blood loss is documented in the 06/26 medical progress note status post orthopedic surgery: ORIF right subtrochanteric femur fracture with long IM hip nail. Patients Admitting Diagnosis: Right subtrochanteric femur fracture. Post-Operative Diagnosis: Same. Developed ABLA & hypotension postoperatively Procedure performed: as above. History/Risk Factors: Atrial fibrillation, CKD, Cardiomyopathy, Diastolic CHF, Pacemaker, Prostate & colon CA, Hyperlipidemia, Hypertension. Clinical Indicators: Preop Hgb 11.9, Hct Postop Hgb 9.0 - 7.7 - 6.8, now up to 7.2 status post transfusions PRBCs x2. In order to accurately reflect this patients severity of illness, please clarify if the post-operative diagnosis of Acute Blood Loss Anemia is: An expected post-procedural or post-surgical condition An unexpected post-procedural or post-surgical condition related to surgical care Other, please specify Unable to determine (Last Revision: September 2017) MTDD
--- NOTE | 2018-07-01 17:00 | P.PN ---
Progress Note - Text anemia blood loss from surgery expected but symptomatic
[2018-07-01] MEDS: ATORVASTATIN 10 MG TAB PO SCH (21:49)
[2018-07-01] MEDS: SENNOSIDES-DOCUSATE SODIUM 1 EACH TAB PO SCH (21:49)
[2018-07-02] MEDS: CEPHALEXIN 500 MG CAP PO SCH ×2 (08:07→20:49)
[2018-07-02] MEDS: METOPROLOL SUCCINATE (ER) 100 MG TAB.ER.24H PO SCH (08:07)
[2018-07-02] MEDS: MIDODRINE 5 MG TAB PO SCH ×3 (08:08→17:22)
[2018-07-02] MEDS: SODIUM BICARBONATE TAB 650 MG TAB PO SCH ×2 (08:08→20:49)
[2018-07-02] MEDS: EDOXABAN TOSYLATE 30 MG TABLET PO SCH (08:08)
[2018-07-02] MEDS: PANTOPRAZOLE 40 MG TABLET PO SCH (08:08)
[2018-07-02] MEDS: CALCIUM CARBONATE 500 MG CHEWABLE PO SCH ×3 (08:21→17:22)
--- NOTE | 2018-07-02 10:10 | P.PN ---
Subjective Patient is seen in follow-up for acute kidney injury on chronic kidney disease. Patient has chronic kidney disease stage III with baseline creatinine in the range of 1.1-1.3 secondary to nephrosclerosis. Renal function had worsened due to hypotension and is now gradually improving. Patient underwent right hip nailing on June 25. He is nonoliguric. Lockwood catheter was removed June 30. Denies chest pain or shortness of breath. Vital signs are stable. General: The patient appeared well nourished and normally developed. HEENT: Head exam is unremarkable. Neck is without jugular venous distension. LUNGS: Lungs are clear to auscultation and percussion. Breath sounds decreased. HEART: Rate and Rhythm are regular. First and second heart sounds normal. No murmurs, rubs or gallops. ABDOMEN: Abdominal exam reveals normal bowel sounds. Non-tender and non- distended. No evidence of peritonitis. EXTREMITITES: No clubbing, cyanosis, or edema. Objective - Vital Signs Vital signs: Vital Signs Temp 97.8 F 07/02/18 08:08 Pulse 60 07/02/18 08:08 Resp 16 07/02/18 08:08 BP 125/55 07/02/18 08:08 Pulse Ox 92 L 07/02/18 08:08 Intake & Output 07/01/18 07/02/18 07/02/18 18:59 06:59 18:59 Intake Total 1259 476 Output Total 200 600 Balance 1059 -124 Intake: Intake, IV Titration 700 Amount Sodium Chloride 0.9% 1, 700 000 ml @ 70 mls/hr IV . [id number] [facility] Rx#:[id number] Oral 559 476 Output: Urine 200 600 Other: Voiding Method Urinal Urinal # Voids 1 2 - Labs CBC & Chem 7: 06/30/18 06:25 07/01/18 06:24 Assessment and Plan Plan: Assessment: 1. Acute kidney injury secondary to ATN secondary to hypotension. Renal function gradually improving. Creatinine 1.17 today. 2. Chronic kidney disease stage III for pacing creatinine in the range of 1.1- 1.3 secondary to nephrosclerosis. 3. Hyperkalemia secondary to acute kidney injury and metabolic acidosis. Better. 4. Hypertension with chronic kidney disease. Controlled. 5. Right femoral neck fracture status post intramedullary nailing on June 25. 6. 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 7. Metabolic acidosis secondary to acute kidney injury maintained on oral sodium bicarbonate. Improved. 8. Anemia of chronic kidney disease. Rule out iron deficiency. Plan: To hold midodrine if systolic blood pressure greater than 120. Avoid nephrotoxins. Repeat electrolytes in the morning. Lockwood catheter removed June 30. Add Aranesp.
--- NOTE | 2018-07-02 10:52 | P.PN ---
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 Dr. Lacy has been consulted. Patient has persistent drainage from the wound site on has been treated with Keflex. Patient remains medically clear for transfer to [facility] Objective - Vital Signs Vital signs: Vital Signs Temp 97.8 F 07/02/18 08:08 Pulse 60 07/02/18 08:08 Resp 16 07/02/18 08:08 BP 125/55 07/02/18 08:08 Pulse Ox 92 L 07/02/18 08:08 Intake & Output 07/01/18 07/02/18 07/02/18 18:59 06:59 18:59 Intake Total 1259 476 Output Total 200 600 Balance 1059 -124 Intake: Intake, IV Titration 700 Amount Sodium Chloride 0.9% 1, 700 000 ml @ 70 mls/hr IV . [id number] [facility] Rx#:[id number] Oral 559 476 Output: Urine 200 600 Other: Voiding Method Urinal Urinal # Voids 1 2 - Constitutional General appearance: Present: mild distress - EENT Eyes: Present: PERRLA - Neck Neck: Present: normal ROM - Respiratory Respiratory: bilateral: CTA - Cardiovascular Rhythm: regular Abnormal Heart Sounds: Present: systolic murmur - Gastrointestinal General gastrointestinal: Present: soft - Integumentary Integumentary: Present: normal - Neurologic Neurologic: Present: CNII-XII intact - Musculoskeletal Musculoskeletal: Present: generalized weakness - Psychiatric Psychiatric: Present: A&O x's 3, appropriate affect, intact judgment & insight - Labs CBC & Chem 7: 06/30/18 06:25 07/01/18 06:24 Assessment and Plan Plan: Assessment Right hip intertrochanteric fracture 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 Lacy regarding metastatic cancer
[2018-07-02] MEDS ORDERED: DARBEPOETIN ALFA 40 MCG/0.4 ML SYRINGE SQ SCH (11:00)
[2018-07-02] MEDS: CHOLECALCIFEROL 1,000 UNIT TAB PO SCH (12:30)
[2018-07-02 16:08] LABS: Iron Saturation 14.15 (15.00-50.00)
--- NOTE | 2018-07-02 16:39 | P.CONS ---
History of Present Illness - Reason for Consult Consult date: 07/02/18 Bone mets, pathologic fracture - History of Present Illness The pt is an 88 yr old WM, who presented to the emergency room, with complains of acute onset of pain in the right upper thigh area. The patient had been climbing up stairs, when he returned and felt a crack and off, followed by development of pain. He therefore came into the emergency room, where he was found to have a subtrochanteric femur fracture. Due to the mild precipitating factors, there was suspicion that this could be a pathologic fracture. The patient underwent ORIF, with bone reamings sent for pathology. 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 Consult was therefore placed for further evaluation and recommendations. The patient had a history of stage I colon cancer for which she was seen in . Due to the early stage no adjuvant chemotherapy was recommended. 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 Review of Systems Constitutional: Denies chills, Denies fever Eyes: denies blurred vision, denies pain Ears: bilateral: decreased hearing, deny: ear discharge, earache Ears, nose, mouth and throat: Denies headache, Denies sore throat Cardiovascular: Reports decreased exercise tolerance, Reports irregular heart beat Respiratory: Denies cough Gastrointestinal: Denies abdominal pain, Denies diarrhea, Denies nausea, Denies vomiting Genitourinary: Reports as per HPI, Reports urinary frequency Musculoskeletal: Reports shooting leg pain Musculoskeletal: right: hip pain Integumentary: Denies pruritus, Denies rash Neurological: Reports weakness, Denies numbness Psychiatric: Denies anxiety, Denies depression Endocrine: Denies fatigue, Denies weight change Hematologic/Lymphatic: Reports as per HPI Past Medical History Past Medical History: Atrial Fibrillation, Cancer, GERD/Reflux, Hyperlipidemia, Hypertension, Osteoarthritis (OA), Prostate Disorder Additional Past Medical History / Comment(s): Pancreatitis, prostate CA > 10 yrs ago, COLON CA History of Any Multi-Drug Resistant Organisms: None Reported Past Surgical History: Bowel Resection, Pacemaker, Prostate Surgery Additional Past Surgical History / Comment(s): BILATERAL CATARACTS. PROSTATECTOMY, Past Anesthesia/Blood Transfusion Reactions: No Reported Reaction Type of Cardiac Device: Permanent Pacemaker Device Placement Date:: 12-12-15 Past Psychological History: No Psychological Hx Reported Smoking Status: Former smoker Past Alcohol Use History: None Reported Additional Past Alcohol Use History / Comment(s): SMOKING: QUIT 1978 FOR 34 YRS , PPD: 1-3. Past Drug Use History: None Reported Additional Drug Use History / Comment(s): 1-3 scotch or wine daily - Past Family History Father Family Medical History: Cancer Additional Family Medical History / Comment(s): prostate Brother(s) Family Medical History: Cancer Additional Family Medical History / Comment(s): Prostate Medications and Allergies Home Medications Medication Instructions Recorded Confirmed Type Aspirin EC [Ecotrin Low Dose] 81 mg PO MOWEFR@2100 09/25/14 06/23/18 History Atorvastatin Calcium [Lipitor] 10 mg PO HS 09/25/14 06/23/18 History Ranitidine HCl [Zantac] 150 mg PO BID 09/25/14 06/23/18 History Cholecalciferol [Vitamin D3] 1,000 unit PO PC-LUNCH 05/09/15 06/23/18 History Multivitamin [Men's Multi-Vitamin] 1 tab PO PC-LUNCH 05/09/15 06/23/18 History [place]-3 Fatty Acids/Fish Oil [Fish 1 cap PO PC-LUNCH 05/09/15 06/23/18 History Oil 1,000 mg Softgel] Cranberry Fruit Extract [Cranberry] 500 mg PO PC-LUNCH 11/10/15 06/23/18 History Metoprolol Succinate [Toprol XL] 100 mg PO QAM 11/10/15 06/23/18 History Acetaminophen Tab [Tylenol] 650 mg PO Q6HR PRN tab 07/01/18 Rx Calcium Carbonate [Tums] 500 mg PO TID-W/MEALS chew 07/01/18 Rx Cephalexin [Keflex] 500 mg PO BID cap 07/01/18 Rx Edoxaban Tosylate [Savaysa] 30 mg PO DAILY tablet 07/01/18 Rx Ergocalciferol [Vitamin D2 50,000 unit PO Q72H cap 07/01/18 Rx (DRISDOL)] Magnesium Hydroxide [Milk of 2,400 mg PO DAILY PRN ml 07/01/18 Rx Magnesia Concentrate] Sennosides-Docusate Sodium 2 each PO HS tab 07/01/18 Rx [Senokot-S] Sodium Bicarbonate Tab 1,300 mg PO BID tab 07/01/18 Rx Allergies Allergy/AdvReac Type Severity Reaction Status Date / Time Penicillins Allergy Rash/Hives Verified 06/23/18 21:24 Physical Exam Vitals: Vital Signs Temp Pulse Resp BP Pulse Ox 07/02/18 15:46 97.9 F 60 16 155/61 95 07/02/18 08:08 97.8 F 60 16 125/55 92 L 07/02/18 01:00 98.0 F 16 153/70 96 07/01/18 20:00 98.1 F 63 135/62 98 Intake and Output 07/02/18 07/02/18 07/02/18 06:59 14:59 22:59 Intake Total 240 Output Total 600 Balance -360 Intake: Oral 240 Output: Urine 600 Other: Weight 80.739 kg - Constitutional General appearance: no acute distress - EENT Eyes: EOMI, PERRLA ENT: hearing grossly normal, normal oropharynx - Neck Neck: no lymphadenopathy Thyroid: bilateral: normal size - Respiratory Respiratory: bilateral: CTA - Cardiovascular Rhythm: regular Heart sounds: normal: S1, S2 - Gastrointestinal General gastrointestinal: normal bowel sounds, soft - Integumentary Integumentary: normal - Neurologic Neurologic: CNII-XII intact - Musculoskeletal Musculoskeletal: generalized weakness, right sided weakness (right lower extremity weakness due to recent surgery) - Psychiatric Psychiatric: A&O x's 3, appropriate affect Results CBC & Chem 7: 06/30/18 06:25 07/01/18 06:24 Labs: Abnormal Lab Results - Last 24 Hours (Table) 07/01/18 Range/Units 06:24 Iron 30 L (65-175) ug/dL TIBC 212 L (228-460) ug/dL Iron Saturation 14.15 L (15.00-50.00) Comments: Reports of skeletal x-rays reviewed Chest x-ray: report reviewed US - abdomen: report reviewed Assessment and Plan (1) Bone metastases Narrative/Plan: The patient had presented with a new onset right upper femur fracture with very minimal trauma. Therefore pathologic fracture was suspected. The patient is status post ORIF. Pathology did come back positive for metastatic adenocarcinoma. The patient has a prior history of colon cancer, as well as prostate cancer. The colon cancer was diagnosed in 11/17 and was stage I disease, with very low risk of recurrence. Prostate cancer was also localize and treated curatively many years ago. The tumor staining pattern is not consistent with either colonic or prostate origin. Upper GI/pancreatobiliary is most likely at this time. The pathology report and implications were discussed in detail with him. At this time a bone scan, as well as CT of the chest abdomen and pelvis will be ordered to start workup to try to isolate the primary. The patient has not had an EGD to the best of his recollection. The patient has had the appropriate initial treatment for pathologic fracture , with ORIF. He was advised that the next appointment treatment would be local radiation when he is appropriately healed. Current Visit: Yes Status: Acute Code(s): C79.51 - SECONDARY MALIGNANT NEOPLASM OF BONE SNOMED Code(s): 88849012 (2) Fracture of hip Narrative/Plan: Pathologic fracture due to metastatic adenocarcinoma, off as yet, unknown primary. Patient is status post surgery. Defer to orthopedic service for postop care. Defer to internal medicine, for postop medical management. The patient should receive anticoagulation, given the type of surgery as well as increased risk of thromboembolism from underlying malignancy Current Visit: Yes Status: Acute Priority: Medium Code(s): S72.009A - FRACTURE OF UNSP PART OF NECK OF UNSP FEMUR, INIT SNOMED Code(s): 782607320
[2018-07-02] MEDS: IOPAMIDOL-300 CONTRAST 30 ML VIAL (ORAL USE) PO PRN ×2 (17:16→18:05)
--- NOTE | 2018-07-02 19:45 | CT ---
EXAMINATION TYPE: CT ChestAbdPelvis w con DATE OF EXAM: 07/02/2018 COMPARISON: 01/18/2013 HISTORY: Metastatic adenocarcnoma CT DLP: 1163.9 mGycm Automated exposure control for dose reduction was used. CONTRAST: CT scan of the chest, abdomen and pelvis is performed with Oral Contrast and with IV Contrast, patien t injected with 80ml mL of Isovue 300. FINDINGS: There are bilateral pleural effusions. Heart is enlarged. There is no pericardial effusion. There is 2 cm irregular infiltrate in the posterior right upper lobe. There is mild atelectasis at the lung ba ses. There is no pericardial effusion there are no hilar masses. There is 1.5 cm cyst inferior right lobe of the liver. Gallbladder appears normal. Bile ducts are not dilated. There is 5 cm cyst in the left lobe of the liver adjacent to the stomach. There is some sma ll cystic areas in the posterior spleen. There are cystic small areas in the body and tail of the guido creas with dilation of the pancreatic duct. I see no mass in the head of the pancreas. There is no adrenal mass. There is a 1 cm lipoma of the left adrenal gland. Kidneys show satisfactory contrast opacification. There is no hydronephrosis. There is 1 cm exophytic nodular density in the u pper pole left kidney. Unchanged. There is 1 cm exophytic cyst upper pole right kidney unchanged. The re is no retroperitoneal adenopathy. There is no ascites. There is retained fecal material in the rec jerome. Bladder distends smoothly. There is no inguinal hernia. There is right hip nailing noted. There is subcutaneous edema around the upper legs. There is subcutaneous edema around the pelvis. There is some air in the urinary bladder probably from catheterization. There is a 2 x 1 cm area of osteolytic change and expansion of bilateral left rib this is probably th e seventh rib. There is some asymmetric increased density in the right breast compared to the left that could be mul tiple cysts. IMPRESSION: Bilateral pleural effusions and cardiomegaly. This could relate to congestive heart failu re. Right upper lobe irregular masslike infiltrate could relate to metastatic disease. Hepatic cysts appear increased compared to old exam. There are low-density areas in the posterior spl een compared to old exam. These are nonspecific. These could relate to multiple infarcts. There are cystic changes and enlargement of the pancreatic duct in the body and tail of the pancreas. No pancreatic mass identified. The possibility of a small obstructing pancreatic tumor should be con sidered. Stable nodular density upper pole left kidney. Constipation. There is a new lytic lesion left seventh rib consistent with metastatic disease compared to old exam.
--- NOTE | 2018-07-02 20:37 | P.PN ---
Subjective Progress Note Date: 07/02/18 Principal diagnosis: Right subtrochanteric femur fracture status-post operative fixation with long intramedullary hip nail Metastatic adenocarinoma Chronic kidney disease Patient is an 88-year-old male past medical history of atrial fibrillation with pacemaker on Savaysa, history of colon cancer, hyperlipidemia, hypertension, osteoarthritis presented to the ER 06/24/18 with complaints of right hip pain. Patient states he was walking up his stairs at home when he turned suddenly and felt a pop and a crack in his hip. He states he could not continue walking and had to call to his friend for help, who helped him down on the stairs. Patient then immediately called EMS for help, the patient was brought to [facility] ER for further evaluation and treatment. On presentation to the ER the patient was found to have a right displaced subtrochanteric femur fracture. The patient also noted right knee pain, however currently patient states that this is a chronic problem and he sees Dr. Johnathan Washington as an outpatient for osteoarthritis. Xrays in the ER showed severe osteoarthritis, and no fractures. Patient denies pain anywhere else in the body. Fracture is suspected to be pathologic, based on the mechanism of injury. Today is post-operative day #7. 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 Lacy has been consulted for evaluation and recommendations. Patient states pain is well controlled currently. He states he is still experiencing drainage from the operative site. He denies any new complaints today. Objective - Vital Signs Vital signs: Vital Signs Temp 98.5 F 07/02/18 19:40 Pulse 60 07/02/18 19:40 Resp 15 07/02/18 19:40 BP 147/68 07/02/18 19:40 Pulse Ox 95 07/02/18 19:40 Intake & Output 07/02/18 07/02/18 07/03/18 06:59 18:59 06:59 Intake Total 476 240 Output Total 600 Balance -124 240 Weight 80.739 kg Intake: Oral 476 240 Output: Urine 600 Other: Voiding Method Urinal # Voids 2 1 - Exam On exam, the patient is sitting up in the bed in no acute distress. Patient is alert and oriented x3. On inspection of the right hip, there is a dressing in place with yellow, serous drainage present. Dressing is taken down, and the surgical incision shows no signs of infection; there is no erythema, warmth, or fluctuance. Active drainage of yellow, clear serous fluid from incision sites. Calves are soft and nontender bilaterally. Lower extremity compression cuffs are in place bilaterally. Patient has full range of motion of the ankles and toes bilaterally. Neurovascular is intact of the lower extremities bilaterally. Dorsalis pedis pulse +2 bilaterally, brisk capillary refill of lower extremities bilaterally. - Labs CBC & Chem 7: 06/30/18 06:25 07/01/18 06:24 Labs: Abnormal Lab Results - Last 24 Hours (Table) 07/01/18 Range/Units 06:24 Iron 30 L (65-175) ug/dL TIBC 212 L (228-460) ug/dL Iron Saturation 14.15 L (15.00-50.00) - Imaging and Cardiology Pathology report 07/01/18 on right femur reamings: Positive for metastatic adenocarcinoma Assessment and Plan Assessment: Right subtrochanteric femur fracture status-post operative fixation with long intramedullary hip nail Metastatic adenocarcinoma Chronic kidney disease Plan: - Pathology report on right femur reamings positive for metastatic adenocarcinoma. Oncology consulted for evaluation and recommendations. - Toe-touch weight bearing of the right lower extremity. Ice and elevate right hip for pain and swelling control. Up with therapy, up with a walker. - Patient will be placed prophylactic antibiotics due to increase of incision site drainage, Keflex 500mg q12h for 10 days. Dressing changes once dressing becomes saturated. He will follow-up in the office with Dr. Vazquez in 1 week following discharge for a soft tissue check. - Continue current pain management. Will defer post-operative anticoagulation to medicine. - Physical therapy for gait and balance training. - Appreciate medicine and nephrology consults. - Case management consulted for discharge planning. Planning on discharge to [facility]. - Patient seen with Dr. Vazquez.
[2018-07-02] MEDS: SENNOSIDES-DOCUSATE SODIUM 1 EACH TAB PO SCH (20:49)
[2018-07-02] MEDS: ATORVASTATIN 10 MG TAB PO SCH (20:49)
[2018-07-03] MEDS: MIDODRINE 5 MG TAB PO SCH ×3 (11:22→18:49)
[2018-07-03] MEDS: CEPHALEXIN 500 MG CAP PO SCH ×2 (11:26→20:54)
[2018-07-03] MEDS: CALCIUM CARBONATE 500 MG CHEWABLE PO SCH ×3 (11:26→18:49)
--- NOTE | 2018-07-03 11:26 | P.PN ---
Subjective Patient is seen in follow-up for acute kidney injury on chronic kidney disease. Patient has chronic kidney disease stage III with baseline creatinine in the range of 1.1-1.3 secondary to nephrosclerosis. Renal function had worsened due to hypotension and is now gradually improving. Patient underwent right hip nailing on June 25. He is nonoliguric. Lockwood catheter was removed June 30. Denies chest pain or shortness of breath. He's been working with physical therapy. Hemodynamically stable. Vital signs are stable. General: The patient appeared well nourished and normally developed. HEENT: Head exam is unremarkable. Neck is without jugular venous distension. LUNGS: Lungs are clear to auscultation and percussion. Breath sounds decreased. HEART: Rate and Rhythm are regular. First and second heart sounds normal. No murmurs, rubs or gallops. ABDOMEN: Abdominal exam reveals normal bowel sounds. Non-tender and non- distended. No evidence of peritonitis. EXTREMITITES: No clubbing, cyanosis, or edema. Objective - Vital Signs Vital signs: Vital Signs Temp 98.2 F 07/03/18 10:00 Pulse 56 L 07/03/18 10:00 Resp 18 07/03/18 10:00 BP 122/56 07/03/18 10:00 Pulse Ox 95 07/03/18 10:00 Intake & Output 07/02/18 07/03/18 07/03/18 18:59 06:59 18:59 Intake Total 240 Output Total 600 Balance 240 -600 Weight 80.739 kg Intake: Oral 240 Output: Urine 600 Other: # Voids 1 2 # Bowel Movements 1 - Labs CBC & Chem 7: 06/30/18 06:25 07/01/18 06:24 Labs: Abnormal Lab Results - Last 24 Hours (Table) 07/01/18 Range/Units 06:24 Iron 30 L (65-175) ug/dL TIBC 212 L (228-460) ug/dL Iron Saturation 14.15 L (15.00-50.00) Assessment and Plan Plan: Assessment: 1. Acute kidney injury secondary to ATN secondary to hypotension. Renal function gradually improving. Creatinine 1.17 as of June 2018. 2. Chronic kidney disease stage III for pacing creatinine in the range of 1.1- 1.3 secondary to nephrosclerosis. 3. Hyperkalemia secondary to acute kidney injury and metabolic acidosis. Better. 4. Hypertension with chronic kidney disease. Controlled. 5. Right femoral neck fracture status post intramedullary nailing on June 25. 6. 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 7. Metabolic acidosis secondary to acute kidney injury maintained on oral sodium bicarbonate. Improved. 8. Anemia of chronic kidney disease. Iron deficiency noted. Maintained on Aranesp. Plan: To hold midodrine if systolic blood pressure greater than 120. Avoid nephrotoxins. Repeat electrolytes in the morning. Lockwood catheter removed June 30. Ferrlecit 125 mg IV 3 doses.
[2018-07-03] MEDS: EDOXABAN TOSYLATE 30 MG TABLET PO SCH (11:29)
[2018-07-03] MEDS: METOPROLOL SUCCINATE (ER) 100 MG TAB.ER.24H PO SCH (11:29)
[2018-07-03] MEDS: PANTOPRAZOLE 40 MG TABLET PO SCH (11:29)
[2018-07-03] MEDS: SODIUM BICARBONATE TAB 650 MG TAB PO SCH ×2 (11:30→20:55)
--- NOTE | 2018-07-03 11:45 | P.PN ---
Subjective Progress Note Date: 07/03/18 Principal diagnosis: Right subtrochanteric femur fracture status-post operative fixation with long intramedullary hip nail Metastatic adenocarinoma Chronic kidney disease Patient is an 88-year-old male past medical history of atrial fibrillation with pacemaker on Savaysa, history of colon cancer, hyperlipidemia, hypertension, osteoarthritis presented to the ER 06/24/18 with complaints of right hip pain. Patient states he was walking up his stairs at home when he turned suddenly and felt a pop and a crack in his hip. He states he could not continue walking and had to call to his friend for help, who helped him down on the stairs. Patient then immediately called EMS for help, the patient was brought to [facility] ER for further evaluation and treatment. On presentation to the ER the patient was found to have a right displaced subtrochanteric femur fracture. The patient also noted right knee pain, however currently patient states that this is a chronic problem and he sees Dr. Johnathan Washington as an outpatient for osteoarthritis. Xrays in the ER showed severe osteoarthritis, and no fractures. Patient denies pain anywhere else in the body. Fracture is suspected to be pathologic, based on the mechanism of injury. Today is post-operative day #8. 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 Lacy has been consulted for evaluation and recommendations. Patient states pain is well controlled currently. He states he is still experiencing drainage from the operative site. He's been up with therapy and to the chair today with a walker. He denies any new complaints today. Vital signs stable. Objective - Vital Signs Vital signs: Vital Signs Temp 98.2 F 07/03/18 10:00 Pulse 56 L 07/03/18 10:00 Resp 18 07/03/18 10:00 BP 122/56 07/03/18 10:00 Pulse Ox 95 07/03/18 10:00 Intake & Output 07/02/18 07/03/18 07/03/18 18:59 06:59 18:59 Intake Total 240 Output Total 600 Balance 240 -600 Weight 80.739 kg Intake: Oral 240 Output: Urine 600 Other: # Voids 1 2 # Bowel Movements 1 - Exam On exam, the patient is sitting up in the chair in no acute distress. Patient is alert and oriented x3. On inspection of the right hip, there is a dressing in place with yellow, serous drainage present. Active drainage of yellow, clear serous fluid from incision sites. Patient has full range of motion of the ankles and toes bilaterally. Neurovascular is intact of the lower extremities bilaterally. - Labs CBC & Chem 7: 06/30/18 06:25 07/01/18 06:24 Labs: Abnormal Lab Results - Last 24 Hours (Table) 07/01/18 Range/Units 06:24 Iron 30 L (65-175) ug/dL TIBC 212 L (228-460) ug/dL Iron Saturation 14.15 L (15.00-50.00) Assessment and Plan Assessment: Right subtrochanteric femur fracture status-post operative fixation with long intramedullary hip nail Metastatic adenocarcinoma Chronic kidney disease Plan: - Pathology report on right femur reamings positive for metastatic adenocarcinoma. Oncology consulted for evaluation and recommendations. - Toe-touch weight bearing of the right lower extremity. Ice and elevate right hip for pain and swelling control. Up with therapy, up with a walker. - Continue prophylactic antibiotics while his right hip incision continues to drain serous fluid. Dressing changes once dressing becomes saturated. He will follow-up in the office with Dr. Vazquez in 1 week following discharge for a soft tissue check. - Continue current pain management. Will defer post-operative anticoagulation to medicine. - Physical therapy for gait and balance training. - Appreciate medicine and nephrology consults. - Case management consulted for discharge planning. Planning on discharge to [facility]. - Patient seen with Dr. Vazquez.
--- NOTE | 2018-07-03 13:59 | NM ---
EXAMINATION TYPE: NM bone scan whole body DATE OF EXAM: 07/03/2018 COMPARISON: Correlation CT 07/02/2018 HISTORY: 88-year-old male with bone metastases, prostate cancer. Also, history of colon cancer 1 year ago. Patient with right hip and right knee pain. Technique: Delayed whole-body scanning was performed following the injection of 22.5 mCi Tc 99m MDP. Images acquired 4 hours post injection. FINDINGS: Small focus of increased uptake along the right frontal calvarium. Uptake in the right greater than l eft sternoclavicular joint suspected to be degenerative. Uptake at the right shoulder also likely deg enerative. Focal increased uptake lateral left seventh rib compatible with known lytic metastasis. Fo farida degenerative uptake at the base of the thumbs. Focal increased uptake along the anterior right iliac crest suggest additional site of disease involv ement. There is scoliotic deformity and focal increased uptake L2 level are present metastatic disease as we ll. Prominent increased uptake at the right intertrochanteric region could represent combination of osseo us metastases and postsurgical change from antegrade intramedullary nailing. Small foci of increased uptake distal femoral metadiaphysis on the right suggest interlocking screws. Focal increased uptake medial aspect of the left knee likely on a degenerative basis. Lesser degree o f similar changes both medially and laterally at the right knee, also likely degenerative. IMPRESSION: 1. Small focus of increased uptake along the right frontal calvarium is suspicious. There is metastat ic involvement of the left lateral seventh rib, anterior right iliac crest, and possible residual met astatic lesion of the right intertrochanteric region status post intramedullary nailing. Correlate wi th findings on pathology. 2. Possible osseous metastatic disease to the L2 vertebral body. 3. Findings suggest degenerative uptake at the sternoclavicular joints, right shoulder, base of the t humbs, and left greater than right knees.
[2018-07-03] MEDS: SODIUM FERRIC GLUCONAT-SUCROSE 125 MG in SODIUM CHLORIDE 0.9% 100 ML IVPB SCH (14:05)
[2018-07-03] MEDS: CHOLECALCIFEROL 1,000 UNIT TAB PO SCH (14:16)
--- NOTE | 2018-07-03 14:55 | P.PN ---
Subjective Patient had a bone scan showing metastatic disease to L2 left lateral seventh rib anterior right iliac crests and residual metastatic lesions in the right intra-trochanter. Patient is medically stable to transfer to [facility] pending any further orders by oncology Objective - Vital Signs Vital signs: Vital Signs Temp 98.2 F 07/03/18 10:00 Pulse 56 L 07/03/18 10:00 Resp 18 07/03/18 10:00 BP 122/56 07/03/18 10:00 Pulse Ox 95 07/03/18 10:00 Intake & Output 07/02/18 07/03/18 07/03/18 18:59 06:59 18:59 Intake Total 240 Output Total 600 Balance 240 -600 Weight 80.739 kg Intake: Oral 240 Output: Urine 600 Other: # Voids 1 2 # Bowel Movements 1 - Constitutional General appearance: Present: mild distress - EENT Eyes: Present: PERRLA Ears: bilateral: normal - Neck Neck: Present: normal ROM - Respiratory Respiratory: bilateral: CTA - Cardiovascular Abnormal Heart Sounds: Present: systolic murmur - Gastrointestinal General gastrointestinal: Present: soft - Integumentary Integumentary: Present: normal - Neurologic Neurologic: Present: CNII-XII intact - Musculoskeletal Musculoskeletal: Present: generalized weakness - Psychiatric Psychiatric: Present: A&O x's 3, appropriate affect, intact judgment & insight - Labs CBC & Chem 7: 06/30/18 06:25 07/01/18 06:24 Labs: Abnormal Lab Results - Last 24 Hours (Table) 07/01/18 Range/Units 06:24 Iron 30 L (65-175) ug/dL TIBC 212 L (228-460) ug/dL Iron Saturation 14.15 L (15.00-50.00) Assessment and Plan Plan: Assessment Right hip in urgent care fracture 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 Lacy regarding metastatic disease
--- NOTE | 2018-07-03 16:24 | P.CONS ---
History of Present Illness - Reason for Consult Consult date: 07/03/18 Metastatic cancer Requesting physician: Dereck Lacy - Chief Complaint I have hip pain - History of Present Illness Jabari is an 88 year old white male who presented with right thigh pain over 3 months. He noticed while walking the stairs her heard a crack and was in acute pain requiring ED evaluation. He was found a that time to have a subtrochanteric femur fracture. ORIF was performed with pathology consistent with metastatic adenocarcinoma. Jabari does have a history of early stage colon and prostate cancer with no known recurrence. CT of the CAP visualized only cystic changes/enlargement of the pancreatic duct consistent with possible pancreatic head mass, although none was visualized. Bone scan noted uptake in the calvarium, ribs,lumbar spine, and right hip consistent with metastasis. On todays visit Jabari is doing well. He does feel overall week and note pain in the right hip. He denies significant weight loss, nausea, vomiting, or jaundice. Review of Systems Constitutional: Reports as per HPI Past Medical History Past Medical History: Atrial Fibrillation, Cancer, GERD/Reflux, Hyperlipidemia, Hypertension, Osteoarthritis (OA), Prostate Disorder Additional Past Medical History / Comment(s): Pancreatitis, prostate CA > 10 yrs ago, COLON CA History of Any Multi-Drug Resistant Organisms: None Reported Past Surgical History: Bowel Resection, Pacemaker, Prostate Surgery Additional Past Surgical History / Comment(s): BILATERAL CATARACTS. PROSTATECTOMY, Past Anesthesia/Blood Transfusion Reactions: No Reported Reaction Type of Cardiac Device: Permanent Pacemaker Device Placement Date:: 12-12-15 Past Psychological History: No Psychological Hx Reported Smoking Status: Former smoker Past Alcohol Use History: None Reported Additional Past Alcohol Use History / Comment(s): SMOKING: QUIT 1978 FOR 34 YRS , PPD: 1-3. Past Drug Use History: None Reported Additional Drug Use History / Comment(s): 1-3 scotch or wine daily - Past Family History Father Family Medical History: Cancer Additional Family Medical History / Comment(s): prostate Brother(s) Family Medical History: Cancer Additional Family Medical History / Comment(s): Prostate Medications and Allergies Home Medications Medication Instructions Recorded Confirmed Type Aspirin EC [Ecotrin Low Dose] 81 mg PO MOWEFR@2100 09/25/14 06/23/18 History Atorvastatin Calcium [Lipitor] 10 mg PO HS 09/25/14 06/23/18 History Ranitidine HCl [Zantac] 150 mg PO BID 09/25/14 06/23/18 History Cholecalciferol [Vitamin D3] 1,000 unit PO PC-LUNCH 05/09/15 06/23/18 History Multivitamin [Men's Multi-Vitamin] 1 tab PO PC-LUNCH 05/09/15 06/23/18 History Laverne-3 Fatty Acids/Fish Oil [Fish 1 cap PO PC-LUNCH 05/09/15 06/23/18 History Oil 1,000 mg Softgel] Cranberry Fruit Extract [Cranberry] 500 mg PO PC-LUNCH 11/10/15 06/23/18 History Metoprolol Succinate [Toprol XL] 100 mg PO QAM 11/10/15 06/23/18 History Acetaminophen Tab [Tylenol] 650 mg PO Q6HR PRN tab 07/01/18 Rx Calcium Carbonate [Tums] 500 mg PO TID-W/MEALS chew 07/01/18 Rx Cephalexin [Keflex] 500 mg PO BID cap 07/01/18 Rx Edoxaban Tosylate [Savaysa] 30 mg PO DAILY tablet 07/01/18 Rx Ergocalciferol [Vitamin D2 50,000 unit PO Q72H cap 07/01/18 Rx (DRISDOL)] Magnesium Hydroxide [Milk of 2,400 mg PO DAILY PRN ml 07/01/18 Rx Magnesia Concentrate] Sennosides-Docusate Sodium 2 each PO HS tab 07/01/18 Rx [Senokot-S] Sodium Bicarbonate Tab 1,300 mg PO BID tab 07/01/18 Rx Allergies Allergy/AdvReac Type Severity Reaction Status Date / Time Penicillins Allergy Rash/Hives Verified 06/23/18 21:24 Physical Exam Vitals: Vital Signs Temp Pulse Resp BP Pulse Ox 07/03/18 10:00 98.2 F 56 L 18 122/56 95 07/03/18 09:31 94 L 07/03/18 00:25 98.1 F 60 14 132/63 98 07/02/18 19:40 98.5 F 60 15 147/68 95 Intake and Output 07/03/18 07/03/18 07/03/18 06:59 14:59 22:59 Output Total 300 Balance -300 Output: Urine 300 Other: # Voids 0 # Bowel Movements 1 - Constitutional General appearance: average body habitus - EENT Eyes: EOMI - Neck Neck: normal ROM - Respiratory Respiratory: bilateral: diminished - Cardiovascular Rhythm: regular - Musculoskeletal Musculoskeletal: generalized weakness, right sided weakness Results CBC & Chem 7: 06/30/18 06:25 07/01/18 06:24 Assessment and Plan Assessment: Jabari Alves is an 88 year old with a new diagnosis of metastatic malignancy. He does carry a history of early stage colon and prostate cancer. Tumor staining pattern was most consistent with a GI origin and dilated ducts were noted on recent CT imaging. Plan: Tumor markers were ordered and pending. Jabari plans to likely be sent to Acute care rehab after hospital discharge. We will see him back on 07/17/18 at 2pm as he will require post operative radiation to the right femur/hip. Time with Patient: Greater than 30
[2018-07-03] MEDS: ERGOCALCIFEROL 50,000 UNIT CAP PO SCH (18:49)
[2018-07-03] MEDS: SENNOSIDES-DOCUSATE SODIUM 1 EACH TAB PO SCH (20:53)
[2018-07-03] MEDS: ATORVASTATIN 10 MG TAB PO SCH (20:53)
[2018-07-04] MEDS: SODIUM FERRIC GLUCONAT-SUCROSE 125 MG in SODIUM CHLORIDE 0.9% 100 ML IVPB SCH (08:31)
[2018-07-04] MEDS: MIDODRINE 5 MG TAB PO SCH ×2 (08:46→17:42)
[2018-07-04] MEDS: CEPHALEXIN 500 MG CAP PO SCH ×2 (08:50→20:08)
[2018-07-04] MEDS: EDOXABAN TOSYLATE 30 MG TABLET PO SCH (08:50)
[2018-07-04] MEDS: CALCIUM CARBONATE 500 MG CHEWABLE PO SCH ×3 (08:50→17:42)
[2018-07-04] MEDS: PANTOPRAZOLE 40 MG TABLET PO SCH (08:50)
[2018-07-04] MEDS: SODIUM BICARBONATE TAB 650 MG TAB PO SCH ×2 (08:50→20:08)
[2018-07-04] MEDS: METOPROLOL SUCCINATE (ER) 100 MG TAB.ER.24H PO SCH (08:50)
--- NOTE | 2018-07-04 09:10 | P.PN ---
Subjective Progress Note Date: 07/04/18 Principal diagnosis: Right subtrochanteric femur fracture status-post operative fixation with long intramedullary hip nail Metastatic adenocarinoma Chronic kidney disease Patient is an 88-year-old male past medical history of atrial fibrillation with pacemaker on Savaysa, history of colon cancer, hyperlipidemia, hypertension, osteoarthritis presented to the ER 06/24/18 with complaints of right hip pain. Patient states he was walking up his stairs at home when he turned suddenly and felt a pop and a crack in his hip. He states he could not continue walking and had to call to his friend for help, who helped him down on the stairs. Patient then immediately called EMS for help, the patient was brought to [facility] ER for further evaluation and treatment. On presentation to the ER the patient was found to have a right displaced subtrochanteric femur fracture. The patient also noted right knee pain, however currently patient states that this is a chronic problem and he sees Dr. Johnathan Washington as an outpatient for osteoarthritis. Xrays in the ER showed severe osteoarthritis, and no fractures. Patient denies pain anywhere else in the body. Fracture is suspected to be pathologic, based on the mechanism of injury. Today is post-operative day #9. 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 Lacy following for evaluation and recommendations. Patient states pain is well controlled currently. He states he is still experiencing drainage from the operative site. He denies any new complaints today. Vital signs stable. Objective - Vital Signs Vital signs: Vital Signs Temp 98.1 F 07/04/18 07:58 Pulse 62 07/04/18 07:58 Resp 16 07/04/18 07:58 BP 135/54 07/04/18 07:58 Pulse Ox 97 07/04/18 07:58 Intake & Output 07/03/18 07/04/18 07/04/18 18:59 06:59 18:59 Intake Total 900 Output Total 400 300 Balance -400 600 Intake: Oral 900 Output: Urine 400 300 Other: # Voids 0 2 # Bowel Movements 1 - Exam On exam, the patient is sitting up in the chair in no acute distress. Patient is alert and oriented x3. On inspection of the right hip, there is a dressing in place with yellow, serous drainage present. Active drainage of yellow, clear serous fluid from incision sites. Patient has full range of motion of the ankles and toes bilaterally. Right dorsalis pedis pulse +2. Neurovascular is intact of the lower extremities bilaterally. - Labs CBC & Chem 7: 06/30/18 06:25 07/01/18 06:24 Labs: Abnormal Lab Results - Last 24 Hours (Table) 07/03/18 Range/Units 06:24 CA 19-9 Antigen 64.1 H (0.0-34.9) U/mL Assessment and Plan Assessment: Right subtrochanteric femur fracture status-post operative fixation with long intramedullary hip nail Metastatic adenocarcinoma Chronic kidney disease Plan: - Toe-touch weight bearing of the right lower extremity. Ice and elevate right hip for pain and swelling control. Up with therapy, up with a walker. - Continue prophylactic antibiotics while his right hip incision continues to drain serous fluid. Dressing changes once dressing becomes saturated. He will follow-up in the office with Dr. Vazquez in 1 week following discharge for a soft tissue check. - Continue current pain management. Will defer post-operative anticoagulation to medicine. - Physical therapy for gait and balance training. - Pathology report on right femur reamings positive for metastatic adenocarcinoma. Appreciate oncology consult. - Appreciate medicine and nephrology consults. - Case management consulted for discharge planning. Planning on discharge to [facility]. - Patient discussed with Dr. Vazquez.
[2018-07-04 09:27] LABS: Calcium 8.5 mg/dL (8.4-10.2); Magnesium 1.9 mg/dL (1.6-2.3); Potassium 4.5 mmol/L (3.5-5.1)
--- NOTE | 2018-07-04 10:00 | P.PN ---
Subjective Patient is seen in follow-up for acute kidney injury on chronic kidney disease. Patient has chronic kidney disease stage III with baseline creatinine in the range of 1.1-1.3 secondary to nephrosclerosis. Renal function had worsened due to hypotension and is now gradually improving. Patient underwent right hip nailing on June 25. He is nonoliguric. Lockwood catheter was removed June 30. Denies chest pain or shortness of breath. He's been working with physical therapy. Hemodynamically stable. No changes overnight. Vital signs are stable. General: The patient appeared well nourished and normally developed. HEENT: Head exam is unremarkable. Neck is without jugular venous distension. LUNGS: Lungs are clear to auscultation and percussion. Breath sounds decreased. HEART: Rate and Rhythm are regular. First and second heart sounds normal. No murmurs, rubs or gallops. ABDOMEN: Abdominal exam reveals normal bowel sounds. Non-tender and non- distended. No evidence of peritonitis. EXTREMITITES: No clubbing, cyanosis, or edema. Objective - Vital Signs Vital signs: Vital Signs Temp 98.1 F 07/04/18 07:58 Pulse 62 07/04/18 07:58 Resp 16 07/04/18 07:58 BP 135/54 07/04/18 07:58 Pulse Ox 97 07/04/18 07:58 Intake & Output 07/03/18 07/04/18 07/04/18 18:59 06:59 18:59 Intake Total 900 Output Total 400 300 Balance -400 600 Intake: Oral 900 Output: Urine 400 300 Other: # Voids 0 2 # Bowel Movements 1 - Labs CBC & Chem 7: 06/30/18 06:25 07/04/18 08:11 Labs: Abnormal Lab Results - Last 24 Hours (Table) 07/03/18 07/04/18 Range/Units 06:24 08:11 Glucose 131 H (74-99) mg/dL CA 19-9 Antigen 64.1 H (0.0-34.9) U/mL Assessment and Plan Plan: Assessment: 1. Acute kidney injury secondary to ATN secondary to hypotension. Renal function gradually improving. Creatinine 1.06 today. 2. Chronic kidney disease stage III for pacing creatinine in the range of 1.1- 1.3 secondary to nephrosclerosis. 3. Hyperkalemia secondary to acute kidney injury and metabolic acidosis. Better. 4. Hypertension with chronic kidney disease. Controlled. 5. Right femoral neck fracture status post intramedullary nailing on June 25. 6. 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 7. Metabolic acidosis secondary to acute kidney injury maintained on oral sodium bicarbonate. Improved. 8. Anemia of chronic kidney disease. Iron deficiency noted. Maintained on Aranesp. Plan: To hold midodrine if systolic blood pressure greater than 120. Avoid nephrotoxins. Repeat electrolytes in the morning. Lockwood catheter removed June 30. Ferrlecit 125 mg IV 3 doses. Second dose today.
--- NOTE | 2018-07-04 13:32 | XR ---
EXAMINATION TYPE: XR chest 1V portable DATE OF EXAM: 07/04/2018 CLINICAL HISTORY: Difficulty breathing progress study. TECHNIQUE: Single AP portable upright view of the chest is obtained. COMPARISON: Chest x-ray from June 29, 2018. CT July 02, 2018 FINDINGS: Cardiomegaly with dual lead pacemaker is redemonstrated. There is chronic parenchymal lam ge with worsening left basilar opacity. Osseous structures are intact. Right lung shows persistent sm all right effusion. IMPRESSION: Cardiomegaly with small bilateral pleural effusions redemonstrated, developing left basil ar acute infiltrate and/or atelectasis is noted.
[2018-07-04 14:42] LABS: Anisocytosis Slight; Basophils % (A) 0 %; Eosinophils # (A) 0.3 k/uL (0-0.7); Eosinophils % (A) 2 %; HCT 24.7 % (39.0-53.0); HGB 7.7 gm/dL (13.0-17.5); Hypochromasia Moderate; Lymphocytes # (A) 1.4 k/uL (1.0-4.8); Lymphocytes % (A) 7 %; MCHC 31.1 g/dL (31.0-37.0); Macrocytosis Slight; Monocytes # (A) 0.5 k/uL (0-1.0); Monocytes % (A) 3 %; Neutrophils # (A) 16.8 k/uL (1.3-7.7); Neutrophils % (A) 88 %; Platelet Count 293 k/uL (150-450); Poikilocytosis Slight; RBC 2.47 m/uL (4.30-5.90); RDW 16.3 % (11.5-15.5); WBC 19.2 k/uL (3.8-10.6)
--- NOTE | 2018-07-04 14:56 | P.PN ---
Subjective Progress Note Date: 07/04/18 Patient is postop day 9 status post right subtrochanteric femur fracture status post ORIF. Patient has an extensive stay secondary to AK I which is improving. 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 Oncology is following him for that. He was on Keflex for postop antibody prophylaxis. On 07/04/2018 Patient says that he has developed new cough which is yellowish. He also says that he has hoarseness in his voice now. He is feeling little short of breath. He otherwise does not complain of any chest pain, racing heart, no abdominal pain, no nausea and vomiting, no diarrhea constipation. Objective - Vital Signs Vital signs: Vital Signs Temp 98.1 F 07/04/18 07:58 Pulse 62 07/04/18 07:58 Resp 16 07/04/18 07:58 BP 135/54 07/04/18 07:58 Pulse Ox 97 07/04/18 07:58 Intake & Output 07/03/18 07/04/18 07/04/18 18:59 06:59 18:59 Intake Total 900 Output Total 400 300 Balance -400 600 Weight 80.739 kg Intake: Oral 900 Output: Urine 400 300 Other: # Voids 0 2 # Bowel Movements 1 - Constitutional Constitutional Comment(s): On exam, alert and oriented x3. HEENT: Conjunctivae normal. eyes normal. NECK: No JVD. No thyroid enlargement. No LNs CARDIOVASCULAR: S1, S2 muffled. No murmur RESPIRATION: Patient is having decreased breath sound at the left base ABDOMEN: Soft, nontender . No guarding. no masses palpable. No ascites, No hepatosplenomegaly.Bowel sounds heard. LEGS: No edema. no swelling NERVOUS SYSTEM: Cranial N 2-12 grossly normal. Moves all 4 limbs. No focal deficits. No sensory deficit. No signs of cerebellar dysfucntion. SKIN: no ulcer no rash JOINTS: No active swelling: No inflammation. LYMPHATIC SYSTEM : No LN neck axilla or groin. - Labs CBC & Chem 7: 06/30/18 06:25 07/04/18 08:11 Labs: Abnormal Lab Results - Last 24 Hours (Table) 07/03/18 07/04/18 Range/Units 06:24 08:11 Glucose 131 H (74-99) mg/dL CA 19-9 Antigen 64.1 H (0.0-34.9) U/mL Assessment and Plan Assessment: - Right hip intertrochanteric fracture status post ORIF postop day 9 - Pneumonia as per the x-ray patient is having new onset cough which is productive and hoarseness - Acute blood loss anemia status post surgery - AK I - Leukocytosis - History of A. fib - History of prostate cancer and colon cancer - History of hyperlipidemia - Hypertension - Chronic CHF with diastolic dysfunction Plan - We'll start him on doxycycline. Chest x-ray shows new infiltrate in the left base. Patient had a pretty extensive and complicated course in the hospital and therefore we will Consult pulmonology for further recommendations - We'll also order for CBC - Oncology on board for further workup and plan for metastatic disease. Family eagerly waiting to talk to oncology - We'll also put him on Medrol Dosepak - Continue rest of the home medications - DVT and GI prophylaxis - Lab work in the morning - We'll follow up on the patient Time with Patient: Greater than 30
[2018-07-04] MEDS: DOXYCYCLINE 100 MG in SODIUM CHLORIDE 0.9% 100 ML IVPB SCH ×2 (16:14→20:12)
[2018-07-04] MEDS: CHOLECALCIFEROL 1,000 UNIT TAB PO SCH (16:14)
[2018-07-04] MEDS: SENNOSIDES-DOCUSATE SODIUM 1 EACH TAB PO SCH (20:09)
[2018-07-04] MEDS: ATORVASTATIN 10 MG TAB PO SCH (20:09)
--- NOTE | 2018-07-04 21:48 | P.PN ---
Subjective Progress Note Date: 07/04/18 The patient is progressing well post surgery. Pain is controlled. No history of fevers/chills/nausea/vomiting/change in respiratory status Objective - Vital Signs Vital signs: Vital Signs Temp 98.7 F 07/04/18 19:31 Pulse 60 07/04/18 19:31 Resp 18 07/04/18 19:31 BP 107/53 07/04/18 19:31 Pulse Ox 95 07/04/18 19:31 Intake & Output 07/04/18 07/04/18 07/05/18 06:59 18:59 06:59 Intake Total 900 Output Total 300 550 Balance 600 -550 Weight 80.739 kg Intake: Oral 900 Output: Urine 300 550 Other: # Voids 2 1 # Bowel Movements 1 - Constitutional General appearance: Present: no acute distress - EENT Eyes: Present: EOMI ENT: Present: hearing grossly normal, normal oropharynx - Respiratory Respiratory: bilateral: CTA - Cardiovascular Rhythm: irregularly irregular Heart sounds: normal: S1, S2 - Gastrointestinal General gastrointestinal: Present: normal bowel sounds, soft - Integumentary Integumentary: Present: normal - Neurologic Neurologic: Present: CNII-XII intact - Musculoskeletal Musculoskeletal: Present: right sided weakness (Right lower extremity weakness radiosurgery) - Psychiatric Psychiatric: Present: A&O x's 3, appropriate affect - Labs CBC & Chem 7: 07/04/18 14:30 07/04/18 08:11 Labs: Abnormal Lab Results - Last 24 Hours (Table) 07/04/18 07/04/18 Range/Units 08:11 14:30 WBC 19.2 H (3.8-10.6) k/uL RBC 2.47 L (4.30-5.90) m/uL Hgb 7.7 L (13.0-17.5) gm/dL Hct 24.7 L (39.0-53.0) % RDW 16.3 H (11.5-15.5) % Neutrophils # 16.8 H (1.3-7.7) k/uL Glucose 131 H (74-99) mg/dL Assessment and Plan (1) Bone metastases Narrative/Plan: The patient had additional workup done, to try to establish a primary site. As noted previously, the pathology from the bone biopsy indicated adenocarcinoma that could be originating from the lung versus upper GI/ pancreatic biliary. Staining pattern was not consistent with either prostate or colon. The PSA was essentially undetectable. CA 19-9 was mildly elevated at 64.1, which is quite nonspecific The patient's CT of the chest abdomen and pelvis showed an infiltrative masslike area in the right posterior lung, that could be a potential primary site. No other possible primary sites were seen. Bone scan showed additional metastasis in the calvarium, left ribs, and right iliac bone. It was discussed with the patient that at this time a primary site is not known. Ideally determination of the primary site is required to plan appropriate systemic therapy. In this case, the patient may need several procedures for the same. I advised him that regardless of the primary site, this malignancy is likely not curable. It could be more or less treatable, depending on the primary site as well as genetic alterations. Given the patient 's age, it is certainly possible that at least some of the treatment modalities such as combination chemotherapy per have high risk of intolerance for him. If the patient was not interested in aggressive systemic therapy, if that was what was required, then it would not be appropriate to do multiple procedures to try to determine the primary The patient expressed understanding of the same. He stated that this time he does want to keep treatment options open and is therefore agreeable for further workup. The start of, pulmonary medicine were consulted for possible bronchoscopy to assess the right lung finding Radiation oncology has been consulted, and will plan on radiation once adequate wound healing has occurred. In addition, 2-3 weeks post surgery, the patient can be started on IV bisphosphonate or Xgeva Current Visit: Yes Status: Acute Code(s): C79.51 - SECONDARY MALIGNANT NEOPLASM OF BONE SNOMED Code(s): 09182674 (2) Fracture of hip Narrative/Plan: Patient is progressing well post surgery. Defer to the orthopedic service for continuing care. He is on Edoxaban for anticoagulation Current Visit: Yes Status: Acute Priority: Medium Code(s): S72.009A - FRACTURE OF UNSP PART OF NECK OF UNSP FEMUR, INIT SNOMED Code(s): 164126349 Plan: The patient indicated that he would like me to discuss his case with his friend who is a primary caregiver. I was unable to get in touch with him today but will attempt to contact him tomorrow
[2018-07-05] MEDS: CALCIUM CARBONATE 500 MG CHEWABLE PO SCH ×3 (08:53→17:19)
[2018-07-05] MEDS: PANTOPRAZOLE 40 MG TABLET PO SCH (08:53)
[2018-07-05] MEDS: METOPROLOL SUCCINATE (ER) 100 MG TAB.ER.24H PO SCH (08:53)
[2018-07-05] MEDS: SODIUM BICARBONATE TAB 650 MG TAB PO SCH ×2 (08:54→21:14)
[2018-07-05] MEDS: CEPHALEXIN 500 MG CAP PO SCH ×2 (08:54→21:14)
[2018-07-05] MEDS: MIDODRINE 5 MG TAB PO SCH ×2 (08:54→17:19)
[2018-07-05] MEDS: methylPREDNISolone 4 MG TAB TAPER PO SCH (08:54)
[2018-07-05] MEDS: EDOXABAN TOSYLATE 30 MG TABLET PO SCH (08:54)
[2018-07-05] MEDS: DOXYCYCLINE 100 MG in SODIUM CHLORIDE 0.9% 100 ML IVPB SCH ×2 (08:56→21:13)
--- NOTE | 2018-07-05 10:13 | P.PN ---
Subjective Progress Note Date: 07/05/18 Principal diagnosis: Right subtrochanteric femur fracture status-post operative fixation with long intramedullary hip nail Metastatic adenocarinoma Chronic kidney disease Patient is an 88-year-old male past medical history of atrial fibrillation with pacemaker on Savaysa, history of colon cancer, hyperlipidemia, hypertension, osteoarthritis presented to the ER 06/24/18 with complaints of right hip pain. Patient states he was walking up his stairs at home when he turned suddenly and felt a pop and a crack in his hip. He states he could not continue walking and had to call to his friend for help, who helped him down on the stairs. Patient then immediately called EMS for help, the patient was brought to [facility] ER for further evaluation and treatment. On presentation to the ER the patient was found to have a right displaced subtrochanteric femur fracture. The patient also noted right knee pain, however currently patient states that this is a chronic problem and he sees Dr. Johnathan Washington as an outpatient for osteoarthritis. Xrays in the ER showed severe osteoarthritis, and no fractures. Patient denies pain anywhere else in the body. Fracture is suspected to be pathologic, based on the mechanism of injury. Today is post-operative day #10. 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 Lacy following for evaluation and recommendations. Computed tomography scan of chest, abdomen, and pelvis performed which showed a possible mass in the right lung. Pulmonary has been consulted. Radiation oncology has also been consulted, this will be pursued once wound healing has occurred. Patient states pain is well controlled currently. He states he is still experiencing drainage from the operative site. He denies any new complaints today. Vital signs stable. Objective - Vital Signs Vital signs: Vital Signs Temp 97.6 F 07/05/18 06:31 Pulse 63 07/05/18 08:40 Resp 16 07/05/18 06:31 BP 102/49 07/05/18 06:31 Pulse Ox 94 L 07/05/18 06:31 Intake & Output 07/04/18 07/05/18 07/05/18 18:59 06:59 18:59 Output Total 550 550 Balance -550 -550 Weight 80.739 kg Output: Urine 550 550 Other: Voiding Method Urinal # Voids 1 # Bowel Movements 1 - Exam On exam, the patient is sitting up in the chair in no acute distress. Patient is alert and oriented x3. On inspection of the right hip, there is a dressing in place with yellow, serous drainage present. Active drainage of yellow, clear serous fluid from incision sites. Patient has full range of motion of the ankles and toes bilaterally. Right dorsalis pedis pulse +2. Neurovascular is intact of the lower extremities bilaterally. - Labs CBC & Chem 7: 07/04/18 14:30 07/04/18 08:11 Labs: Abnormal Lab Results - Last 24 Hours (Table) 07/04/18 Range/Units 14:30 WBC 19.2 H (3.8-10.6) k/uL RBC 2.47 L (4.30-5.90) m/uL Hgb 7.7 L (13.0-17.5) gm/dL Hct 24.7 L (39.0-53.0) % RDW 16.3 H (11.5-15.5) % Neutrophils # 16.8 H (1.3-7.7) k/uL Assessment and Plan Assessment: Right subtrochanteric femur fracture status-post operative fixation with long intramedullary hip nail Metastatic adenocarcinoma Chronic kidney disease Plan: - Toe-touch weight bearing of the right lower extremity. Ice and elevate right hip for pain and swelling control. Up with therapy, up with a walker. - Continue prophylactic antibiotics while right hip incision continues to drain serous fluid. Dressing changes once dressing becomes saturated. He will follow-up in the office with Dr. Vazquez in 1 week following discharge for a soft tissue check. - Continue current pain management. Will defer post-operative anticoagulation to medicine. - Physical therapy for gait and balance training. - Pathology report on right femur reamings positive for metastatic adenocarcinoma, oncology following. - Patient discussed with Dr. Vazquez.
[2018-07-05] MEDS: SODIUM FERRIC GLUCONAT-SUCROSE 125 MG in SODIUM CHLORIDE 0.9% 100 ML IVPB SCH (10:28)
[2018-07-05] MEDS: CHOLECALCIFEROL 1,000 UNIT TAB PO SCH (12:43)
--- NOTE | 2018-07-05 13:10 | US ---
EXAMINATION TYPE: US chest DATE OF EXAM: 07/05/2018 COMPARISON: CXR from yesterday. CLINICAL HISTORY: Markings for thoracentesis by pulmonary staff. Pleural effusion TECHNIQUE: Targeted ultrasound of the posterior lower left hemithorax EXAM MEASUREMENTS: Left Pleural Effusion pocket size: 5.3 cm Left skin surface to fluid distance: 3.7 cm Left side marked for possible thoracentesis outside the dept. Please note that the lung was persisten tly in the image. Pulmonologists are able to review the images in the patient?s EMR. Only small left pleural effusion is seen on 3 images saved with atelectatic lung. Findings correlate with recent chest x-ray. IMPRESSIONS: As above.
--- NOTE | 2018-07-05 13:20 | P.PN ---
Subjective Progress Note Date: 07/05/18 The patient is progressing slowly after surgery. He states that he is able to stand up only with assistance and can bear weight with the help of walker only for a short time. Pain is controlled at rest. No fever/chills/nausea/ vomiting/obvious bleeding. Objective - Vital Signs Vital signs: Vital Signs Temp 97.6 F 07/05/18 06:31 Pulse 63 07/05/18 08:40 Resp 16 07/05/18 06:31 BP 102/49 07/05/18 06:31 Pulse Ox 94 L 07/05/18 06:31 Intake & Output 07/04/18 07/05/18 07/05/18 18:59 06:59 18:59 Intake Total 200 Output Total 550 550 Balance -550 -550 200 Weight 80.739 kg Intake: Intake, IV Titration 200 Amount Doxycycline 100 mg In 100 Sodium Chloride 0.9% 100 ml @ 100 mls/hr IVPB Q12HR [facility] Rx#:[id number] Sodium Ferric Gluconat- 100 Sucrose 125 mg In Sodium Chloride 0.9% 100 ml @ 100 mls/hr IVPB DAILY [facility] Rx#:[id number] Output: Urine 550 550 Other: Voiding Method Urinal # Voids 1 2 # Bowel Movements 1 - Constitutional General appearance: Present: no acute distress - EENT Eyes: Present: EOMI ENT: Present: hearing grossly normal, normal oropharynx - Respiratory Respiratory: bilateral: CTA - Cardiovascular Rhythm: irregularly irregular Heart sounds: normal: S1, S2 - Gastrointestinal General gastrointestinal: Present: soft - Integumentary Integumentary: Present: normal - Neurologic Neurologic: Present: CNII-XII intact - Musculoskeletal Musculoskeletal: Present: generalized weakness, strength equal bilaterally - Psychiatric Psychiatric: Present: A&O x's 3, appropriate affect - Labs CBC & Chem 7: 07/04/18 14:30 07/04/18 08:11 Labs: Abnormal Lab Results - Last 24 Hours (Table) 07/04/18 Range/Units 14:30 WBC 19.2 H (3.8-10.6) k/uL RBC 2.47 L (4.30-5.90) m/uL Hgb 7.7 L (13.0-17.5) gm/dL Hct 24.7 L (39.0-53.0) % RDW 16.3 H (11.5-15.5) % Neutrophils # 16.8 H (1.3-7.7) k/uL Assessment and Plan (1) Bone metastases Narrative/Plan: I had an extensive discussion regarding his diagnosis, again with him, as well as his friend and roommate according to the patient's request, who is at the bedside. He was again advised that at this time the primary is not definite. Possible sites include lung, as well as upper GI. Ideally in this situation, we would proceed with additional diagnostic procedures to try to define the primary. These could include bronchoscopy, EGD, as well as EUS. It is also possible that the primary may not be defined despite aggressive efforts. In that situation the tumor would need to be treated empirically with a broad-spectrum regimen. Regardless of the actual primary site, metastatic cancer from any of the above areas, is not curable. Therefore the objective of treatment would be prolongation of life and palliation of symptoms. Depending on the primary site, appropriate treatment options, could carry high risk of side effects, given the patient's age. All these factors would need to be considered, before starting aggressive intervention to try to define the primary. The patient again confirmed, that he would like to proceed with further workup at this time. Pulmonary medicine has been consulted. Case was discussed with them. They will assess the patient to see if he would be a candidate for bronchoscopy. Case is also been discussed with radiation oncology. The patient will receive palliative radiation to the right femur. It was clarified that this is a purely palliative procedure, and does not treat the systemic disease. Current Visit: Yes Status: Acute Code(s): C79.51 - SECONDARY MALIGNANT NEOPLASM OF BONE SNOMED Code(s): 81995992 (2) Fracture of hip Narrative/Plan: The patient is progressing slowly after surgery. Defer to the orthopedic service for continued postoperative management Current Visit: Yes Status: Acute Priority: Medium Code(s): S72.009A - FRACTURE OF UNSP PART OF NECK OF UNSP FEMUR, INIT SNOMED Code(s): 971208333
--- NOTE | 2018-07-05 14:09 | P.PN ---
Subjective Progress Note Date: 07/05/18 Patient is postop day 9 status post right subtrochanteric femur fracture status post ORIF. Patient has an extensive stay secondary to AK I which is improving. 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 Oncology is following him for that. He was on Keflex for postop antibody prophylaxis. On 07/04/2018 Patient says that he has developed new cough which is yellowish. He also says that he has hoarseness in his voice now. He is feeling little short of breath. He otherwise does not complain of any chest pain, racing heart, no abdominal pain, no nausea and vomiting, no diarrhea constipation. 07/05/2018 Patient says that he still has cough which is better than yesterday. He does not complain of any chest pain racing heart, no abdominal pain, nausea and vomiting. Pulmonology consult and will be seeing the patient. Patient wants further workup for his cancer. Objective - Vital Signs Vital signs: Vital Signs Temp 97.6 F 07/05/18 06:31 Pulse 63 07/05/18 08:40 Resp 16 07/05/18 06:31 BP 102/49 07/05/18 06:31 Pulse Ox 94 L 07/05/18 06:31 Intake & Output 07/04/18 07/05/18 07/05/18 18:59 06:59 18:59 Intake Total 200 Output Total 550 550 Balance -550 -550 200 Weight 80.739 kg Intake: Intake, IV Titration 200 Amount Doxycycline 100 mg In 100 Sodium Chloride 0.9% 100 ml @ 100 mls/hr IVPB Q12HR [facility] Rx#:[id number] Sodium Ferric Gluconat- 100 Sucrose 125 mg In Sodium Chloride 0.9% 100 ml @ 100 mls/hr IVPB DAILY [facility] Rx#:[id number] Output: Urine 550 550 Other: Voiding Method Urinal # Voids 1 2 # Bowel Movements 1 - Exam On exam, alert and oriented x3. HEENT: Conjunctivae normal. eyes normal. NECK: No JVD. No thyroid enlargement. No LNs CARDIOVASCULAR: S1, S2 muffled. No murmur RESPIRATION: Breath sounds diminished in the bases. No rhonchi or crackles. No bronchial breathing. ABDOMEN: Soft, nontender . No guarding. no masses palpable. No ascites, No hepatosplenomegaly.Bowel sounds heard. LEGS: No edema. no swelling NERVOUS SYSTEM: Cranial N 2-12 grossly normal. Moves all 4 limbs. No focal deficits. No sensory deficit. No signs of cerebellar dysfucntion. Skin: no ulcer no rash Joints: No active swelling. No inflammation. Lymphatic system. No LN neck axilla or groin. - Labs CBC & Chem 7: 07/04/18 14:30 07/04/18 08:11 Labs: Abnormal Lab Results - Last 24 Hours (Table) 07/04/18 Range/Units 14:30 WBC 19.2 H (3.8-10.6) k/uL RBC 2.47 L (4.30-5.90) m/uL Hgb 7.7 L (13.0-17.5) gm/dL Hct 24.7 L (39.0-53.0) % RDW 16.3 H (11.5-15.5) % Neutrophils # 16.8 H (1.3-7.7) k/uL Assessment and Plan Assessment: - Right hip intertrochanteric fracture status post ORIF postop day 9 - Pneumonia as per the x-ray patient is having new onset cough which is productive and hoarseness - Acute blood loss anemia status post surgery - AK I - Leukocytosis - History of A. fib - History of prostate cancer and colon cancer - History of hyperlipidemia - Hypertension - Chronic CHF with diastolic dysfunction Plan - Continue doxycycline. Pulmonology consulted - Oncology following the patient. Patient wants to pursue further workup for his cancer diagnosis - Continue rest of the home medications - DVT and GI prophylaxis - We'll order for lab work in the morning - We'll follow up on the patient
--- NOTE | 2018-07-05 17:37 | CONS ---
CONSULTATION This is a pulmonary critical care consultation This is a patient who I am asked to see for a lesion in the right upper lobe. The patient came into the emergency room way back on June 23. The patient apparently noted that his right hip popped out when he was climbing some steps. He had immediate pain to the right hip. The patient was evaluated in the emergency room and found to have a fracture. Apparently Dr. Vazquez did a pinning procedure on the right hip. At that time, the bone was sent for evaluation and the patient was discovered to have adenocarcinoma. The fracture was thought to be possibly pathologic and that is why the samples were sent. The sampling of the bone fragments came back positive for adenocarcinoma. Special stains were done. It was positive for metastatic adenocarcinoma with gastrointestinal/pancreatobiliary tract versus lung as being the primary source. For that reason, we were consulted for evaluation of a right upper lung lesion. The patient had a CT scan of the chest done back on July 02. It showed bilateral pleural effusions, left greater than right. It also showed a right upper lobe mass. It was irregular in shape. It was about [address] Lacy, the oncologist, wanted us to potentially evaluate this lesion with bronchoscopy/navigational bronchoscopy. The patient apparently initially was not in agreement but now is agreeable to have procedure done. I told him it probably would not be done until maybe mid next week. The patient otherwise is doing reasonably well. He was a smoker in the past. Smoked about 30 years. Smoked about a pack to 3 packs a day, but he states he also would light up cigarettes and put them down. Denies any lung issues. Denies any shortness of breath. Does not cough up any phlegm or blood. Does not wheeze. Does not take any breathing medications and does not use oxygen. . HOME MEDICATIONS: Include aspirin, Lipitor, Zantac, vitamin D3, multivitamins, fish oil, cranberry fruit extract, lisinopril, metoprolol, Aldactone, Lasix, Savaysa and Bactrim. ALLERGIES: PENICILLIN. MEDICAL HISTORY: Atrial fibrillation, GERD, hyperlipidemia, hypertension, osteoarthritis, pancreatitis, prostate cancer, colon cancer, pacemaker insertion, cataracts. SURGICAL HISTORY: Includes bilateral cataract surgery and prostatectomy. He also has a permanent pacemaker insertion. SOCIAL HISTORY: Positive for previous tobacco use as mentioned above. He denies alcohol or illicit drug use. FAMILY HISTORY: Positive for prostate cancer. REVIEW OF SYSTEMS: CONSTITUTIONAL: Negative. NEUROLOGIC: Negative. HEENT: Negative. CARDIOVASCULAR: Negative. PULMONARY: Negative. GI/: Negative. RHEUMATOLOGIC/IMMUNOLOGIC: Negative. ENDOCRINOLOGIC: Negative. DERMATOLOGIC: Negative. PHYSICAL EXAMINATION: Current vital signs are reviewed. Temperature 97.6, heart rate 63, respiratory rate 16, blood pressure 102/49 with mean of 66, room air saturation 94%. Appears in no acute distress. HEENT examination is grossly unremarkable. Mucous membranes are moist. NECK: Supple. Full range of motion. No adenopathy. Cardiovascular examination reveals regular rhythm rate. S1, S2 normal. No S3, S4, or murmur. Heart sounds are distant. Lungs reveal mostly clear breath sounds. A few scattered mild rhonchi. No wheezes or crackles. ABDOMEN: Soft. Bowel sounds are heard. Extremities are intact. No cyanosis, clubbing, or edema. Skin is without rash. Neurologic examination is brief but nonfocal. LABS: Reviewed. White count 19.2, hemoglobin 7.7, hematocrit 24.7, platelet count 293,000. Sodium 137, potassium 4.5, chloride 106, CO2 of 24, anion gap 7. BUN and creatinine were 17 and 1.06. His CA-19-9 antigen was 64.1 which is elevated. X-rays are reviewed. CT scan is reviewed. The patient does have evidence of a pleural effusion. It is bilateral. We will order chest ultrasound to see if it is worth draining. CT scan was reviewed. This was done on July 02. Shows a 1.8-2 cm lesion in the extreme right upper lobe. Medications are reviewed. ASSESSMENT: 1. A 1.8-2.0 cm lesion, right upper lobe, may represent malignancy. 2. Recent bone biopsy of the right pathologic femur fracture, showing evidence of adenocarcinoma, thought to be either GI and/or lung primary. 3. Previous history of colon cancer. 4. History of prostate cancer. 5. Status post permanent pacemaker insertion. 6. History of atrial fibrillation. 7. History of gastroesophageal reflux disease. 8. History of hyperlipidemia. 9. History of hypertension. 10.Degenerative joint disease. 11.History of cataracts. PLAN: The patient was agreeable to potential procedure later next week. I will leave that up to my partner to decide whether not to do standard bronchoscopy versus navigational bronchoscopy. The lesion is in the extreme right upper lobe. It may be difficult to reach. In addition, we will do an ultrasound of the chest to see if there is any fluid worth draining from the left chest. There are bilateral effusions, left greater than right. Additional recommendations and suggestions are forthcoming. Prognosis is guarded. MMODL / IJN: [id number] /
[2018-07-05] MEDS: ATORVASTATIN 10 MG TAB PO SCH (21:14)
[2018-07-05] MEDS: SENNOSIDES-DOCUSATE SODIUM 1 EACH TAB PO SCH (21:15)
[2018-07-06] MEDS: METOPROLOL SUCCINATE (ER) 100 MG TAB.ER.24H PO SCH (08:44)
[2018-07-06] MEDS: PANTOPRAZOLE 40 MG TABLET PO SCH (08:44)
[2018-07-06] MEDS: CHOLECALCIFEROL 1,000 UNIT TAB PO SCH (08:44)
[2018-07-06] MEDS: CALCIUM CARBONATE 500 MG CHEWABLE PO SCH ×3 (08:44→18:02)
[2018-07-06] MEDS: MIDODRINE 5 MG TAB PO SCH ×2 (08:44→18:03)
[2018-07-06] MEDS: SODIUM BICARBONATE TAB 650 MG TAB PO SCH ×2 (08:44→20:41)
[2018-07-06] MEDS: CEPHALEXIN 500 MG CAP PO SCH ×2 (08:44→20:40)
[2018-07-06] MEDS: methylPREDNISolone 4 MG TAB TAPER PO SCH (08:45)
[2018-07-06] MEDS: EDOXABAN TOSYLATE 30 MG TABLET PO SCH (08:45)
[2018-07-06] MEDS: ERGOCALCIFEROL 50,000 UNIT CAP PO SCH (08:45)
[2018-07-06] MEDS: DOXYCYCLINE 100 MG in SODIUM CHLORIDE 0.9% 100 ML IVPB SCH ×2 (08:49→20:40)
[2018-07-06] MEDS: SODIUM FERRIC GLUCONAT-SUCROSE 125 MG in SODIUM CHLORIDE 0.9% 100 ML IVPB SCH (10:22)
--- NOTE | 2018-07-06 10:31 | P.PN ---
Subjective Progress Note Date: 07/06/18 Principal diagnosis: Right subtrochanteric femur fracture status-post operative fixation with long intramedullary hip nail Metastatic adenocarinoma Chronic kidney disease Patient is an 88-year-old male past medical history of atrial fibrillation with pacemaker on Savaysa, history of colon cancer, hyperlipidemia, hypertension, osteoarthritis presented to the ER 06/24/18 with complaints of right hip pain. Patient states he was walking up his stairs at home when he turned suddenly and felt a pop and a crack in his hip. He states he could not continue walking and had to call to his friend for help, who helped him down on the stairs. Patient then immediately called EMS for help, the patient was brought to [facility] ER for further evaluation and treatment. On presentation to the ER the patient was found to have a right displaced subtrochanteric femur fracture. The patient also noted right knee pain, however currently patient states that this is a chronic problem and he sees Dr. Johnathan Washington as an outpatient for osteoarthritis. Xrays in the ER showed severe osteoarthritis, and no fractures. Patient denies pain anywhere else in the body. Fracture is suspected to be pathologic, based on the mechanism of injury. Today is post-operative day #11. 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 Lacy following for evaluation and recommendations. Computed tomography scan of chest, abdomen, and pelvis performed which showed a possible mass in the right lung. Pulmonary medicine has been consulted. Radiation oncology consulted, palliative radiation to right femur planned once wound healing occurs. Patient states pain is well controlled currently. He states he's been having trouble putting weight on the right lower extremity with therapy, he experiences pain and instability. Patient is still experiencing drainage from the operative site. He denies any new complaints today. Vital signs stable. Objective - Vital Signs Vital signs: Vital Signs Temp 97.9 F 07/06/18 06:43 Pulse 62 07/06/18 06:47 Resp 14 07/06/18 06:43 BP 132/55 07/06/18 06:43 Pulse Ox 94 L 07/06/18 06:43 Intake & Output 07/05/18 07/06/18 07/06/18 18:59 06:59 18:59 Intake Total 200 680 Output Total 800 Balance 200 -120 Intake: Intake, IV Titration 200 200 Amount Doxycycline 100 mg In 100 200 Sodium Chloride 0.9% 100 ml @ 100 mls/hr IVPB Q12HR [facility] Rx#:[id number] Sodium Ferric Gluconat- 100 Sucrose 125 mg In Sodium Chloride 0.9% 100 ml @ 100 mls/hr IVPB DAILY [facility] Rx#:[id number] Oral 480 Output: Urine 800 Other: # Voids 2 - Exam On exam, the patient is resting in bed in no acute distress. Patient is alert and oriented x3. On inspection of the right hip, there is a dressing in place with yellow, serous drainage present. Dressing is taken down and surgical incisions show no signs of infection, there is no erythema, warmth, or fluctuance. Active drainage of yellow, clear serous fluid from incision sites. Patient has full range of motion of the ankles and toes bilaterally. Dorsalis pedis pulse +2 bilaterally. Neurovascular is intact of the lower extremities bilaterally. Lower extremity compression cuffs in place bilaterally. - Labs CBC & Chem 7: 07/04/18 14:30 07/04/18 08:11 Assessment and Plan Assessment: Right subtrochanteric femur fracture status-post operative fixation with long intramedullary hip nail Metastatic adenocarcinoma Chronic kidney disease Plan: - Toe-touch weight bearing of the right lower extremity. Ice and elevate right hip for pain and swelling control. Up with therapy, up with a walker. - Continue prophylactic antibiotics while right hip incision continues to drain serous fluid. Dressing changes once dressing becomes saturated. He will follow-up in the office with Dr. Vazquez in 1 week following discharge for a soft tissue check. - Continue current pain management. Will defer post-operative anticoagulation to medicine. - Physical therapy for gait and balance training. - Pathology report on right femur reamings positive for metastatic adenocarcinoma. Oncology following. - CT of chest, abdomen, and pelvis revealed possible lung mass, pulmonary medicine consulted and are planning on a bronchoscopy later this week for biopsy. - Patient discussed with Dr. Vazquez.
--- NOTE | 2018-07-06 12:33 | P.PN ---
Subjective Progress Note Date: 07/06/18 Patient is postop day 9 status post right subtrochanteric femur fracture status post ORIF. Patient has an extensive stay secondary to AK I which is improving. 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 Oncology is following him for that. He was on Keflex for postop antibody prophylaxis. On 07/04/2018 Patient says that he has developed new cough which is yellowish. He also says that he has hoarseness in his voice now. He is feeling little short of breath. He otherwise does not complain of any chest pain, racing heart, no abdominal pain, no nausea and vomiting, no diarrhea constipation. 07/05/2018 Patient says that he still has cough which is better than yesterday. He does not complain of any chest pain racing heart, no abdominal pain, nausea and vomiting. Pulmonology consult and will be seeing the patient. Patient wants further workup for his cancer. 07/06/2018 Pt says he is doing fine Cough is better No chest pain, no racing heart Objective - Vital Signs Vital signs: Vital Signs Temp 97.9 F 07/06/18 06:43 Pulse 62 07/06/18 06:47 Resp 14 07/06/18 06:43 BP 132/55 07/06/18 06:43 Pulse Ox 94 L 07/06/18 06:43 Intake & Output 07/05/18 07/06/18 07/06/18 18:59 06:59 18:59 Intake Total 200 680 Output Total 800 Balance 200 -120 Intake: Intake, IV Titration 200 200 Amount Doxycycline 100 mg In 100 200 Sodium Chloride 0.9% 100 ml @ 100 mls/hr IVPB Q12HR [facility] Rx#:[id number] Sodium Ferric Gluconat- 100 Sucrose 125 mg In Sodium Chloride 0.9% 100 ml @ 100 mls/hr IVPB DAILY [facility] Rx#:[id number] Oral 480 Output: Urine 800 Other: # Voids 2 - Exam On exam, alert and oriented x3. HEENT: Conjunctivae normal. eyes normal. NECK: No JVD. No thyroid enlargement. No LNs CARDIOVASCULAR: S1, S2 muffled. No murmur RESPIRATION: Breath sounds diminished in the bases. No rhonchi or crackles. No bronchial breathing. ABDOMEN: Soft, nontender . No guarding. no masses palpable. No ascites, No hepatosplenomegaly.Bowel sounds heard. LEGS: No edema. no swelling NERVOUS SYSTEM: Cranial N 2-12 grossly normal. Moves all 4 limbs. No focal deficits. No sensory deficit. No signs of cerebellar dysfucntion. Skin: no ulcer no rash Joints: No active swelling. No inflammation. Lymphatic system. No LN neck axilla or groin. - Labs CBC & Chem 7: 07/04/18 14:30 07/04/18 08:11 Assessment and Plan Assessment: - Right hip intertrochanteric fracture status post ORIF postop day 9 - Pneumonia as per the x-ray patient is having new onset cough which is productive and hoarseness - Acute blood loss anemia status post surgery - AK I - Leukocytosis - History of A. fib - History of prostate cancer and colon cancer - History of hyperlipidemia - Hypertension - Chronic CHF with diastolic dysfunction Plan - Continue doxycycline. - Possible bronchoscopy for further diagnosis of the primary. Need to discuss with pulm - Dr. njaera following the patient - Kidney functions back to baseline - PT/OT - Ortho following the patient - WILL F/U Time with Patient: Greater than 30
--- NOTE | 2018-07-06 13:05 | PN ---
PROGRESS NOTE DATE OF SERVICE: July 06, 2018 This is an 88-year-old gentleman we saw in consultation yesterday. The patient recently had a fractured right hip and underwent a pinning. The fracture was thought to be pathologic in nature and the bone biopsy reveal evidence of adenocarcinoma with a primary either in the gastrointestinal tract/pancreas or lung. The patient does have a 1.8-2 cm lesion in the extreme right upper lobe. This may represent the primary. The patient will be seen by my partner tomorrow and some decision will be made about the possibility of navigational bronchoscopy. The patient also has a history of colon cancer, prostate cancer, permanent pacemaker insertion, atrial fibrillation, GERD, hyperlipidemia, hypertension, degenerative joint disease, and a history of cataracts. I did explain to him that my partner would evaluate him and decide about a procedure this week. In addition, the patient was found to have a small left-sided pleural effusion. He is asymptomatic from the pulmonary standpoint. Current vital signs reviewed. Temperature 97.9, heart rate 62, respiratory 14, blood pressure 132/55, mean 80, room air saturation 94%. Appears in no acute distress. PHYSICAL EXAMINATION: HEENT: Grossly unremarkable. NECK: Supple. Full range of motion. No adenopathy or thyromegaly. Neck veins are flat. Cardiovascular examination reveals a regular rhythm and rate. S1, S2 normal. No murmur. LUNGS: Clear breath sounds. No wheezes or rhonchi. No crackles. Breath sounds equal bilaterally. ABDOMEN: Soft without abnormal masses. Bowel sounds are noted. Extremities are intact. No edema. Skin without rash. Neurologic examination is nonfocal. LABS: Reviewed. White count 19.2, hemoglobin 7.7, hematocrit 24.7. This is blood work from the 1st. No recent blood work was done. Microbiologic studies thus far negative. Medications are reviewed. ASSESSMENT: 1. 1.8-2 cm lesion, right upper lobe, may represent malignancy/primary lung cancer. 2. Recent bone biopsy of the right pathologic femur fracture showing evidence of adenocarcinoma, thought to be either gastrointestinal and/or lung primary. 3. Previous history of colon cancer. 4. History of prostate cancer. 5. Status post permanent pacemaker insertion. 6. History of atrial fibrillation. 7. History of gastroesophageal reflux disease. 8. Hyperlipidemia. 9. Hypertension. 10.Degenerative joint disease. 11.History of cataracts. PLAN: The patient will be seen by my partners this week. Additional recommendations and suggestions are forthcoming. I will let him decide whether or not he wants to a navigational bronchoscopy and attempt biopsy of the right upper lobe lesion. The left- sided pleural effusion is small in size. My partner may also choose to evaluate that with thoracentesis. Additional recommendations and suggestions are forthcoming. Prognosis is guarded. MMODL / IJN: [id number] /
[2018-07-06] MEDS: ATORVASTATIN 10 MG TAB PO SCH (20:40)
[2018-07-06] MEDS: SENNOSIDES-DOCUSATE SODIUM 1 EACH TAB PO SCH (20:40)
[2018-07-07 06:57] LABS: Anisocytosis Slight; HCT 26.1 % (39.0-53.0); HGB 8.4 gm/dL (13.0-17.5); Hypochromasia Marked; MCH 33.2 pg (25.0-35.0); MCHC 32.1 g/dL (31.0-37.0); MCV 103.2 fL (80.0-100.0); Macrocytosis Moderate; Mean Platelet Volume 6.5; Platelet Count 345 k/uL (150-450); Poikilocytosis Slight; RBC 2.53 m/uL (4.30-5.90); RDW 18.9 % (11.5-15.5); WBC 17.5 k/uL (3.8-10.6)
[2018-07-07 07:08] LABS: Calcium 8.8 mg/dL (8.4-10.2); Potassium 4.3 mmol/L (3.5-5.1)
[2018-07-07] MEDS: methylPREDNISolone 4 MG TAB TAPER PO SCH (08:29)
[2018-07-07] MEDS: DOXYCYCLINE 100 MG in SODIUM CHLORIDE 0.9% 100 ML IVPB SCH ×2 (08:29→22:25)
[2018-07-07] MEDS: EDOXABAN TOSYLATE 30 MG TABLET PO SCH (08:29)
[2018-07-07] MEDS: SODIUM BICARBONATE TAB 650 MG TAB PO SCH ×2 (08:34→22:26)
[2018-07-07] MEDS: PANTOPRAZOLE 40 MG TABLET PO SCH (08:34)
[2018-07-07] MEDS: CHOLECALCIFEROL 1,000 UNIT TAB PO SCH (08:34)
[2018-07-07] MEDS: METOPROLOL SUCCINATE (ER) 100 MG TAB.ER.24H PO SCH (08:34)
[2018-07-07] MEDS: CALCIUM CARBONATE 500 MG CHEWABLE PO SCH ×3 (08:34→17:37)
[2018-07-07] MEDS: MIDODRINE 5 MG TAB PO SCH ×2 (08:34→17:37)
[2018-07-07] MEDS: CEPHALEXIN 500 MG CAP PO SCH ×2 (08:34→22:26)
--- NOTE | 2018-07-07 10:23 | P.PN ---
Subjective Progress Note Date: 07/07/18 Principal diagnosis: Right subtrochanteric femur fracture status-post operative fixation with long intramedullary hip nail Metastatic adenocarinoma Chronic kidney disease Patient is an 88-year-old male past medical history of atrial fibrillation with pacemaker on aysa, history of colon cancer, hyperlipidemia, hypertension, osteoarthritis presented to the ER 06/24/18 with complaints of right hip pain. Patient states he was walking up his stairs at home when he turned suddenly and felt a pop and a crack in his hip. He states he could not continue walking and had to call to his friend for help, who helped him down on the stairs. Patient then immediately called EMS for help, the patient was brought to [facility] ER for further evaluation and treatment. On presentation to the ER the patient was found to have a right displaced subtrochanteric femur fracture. The patient also noted right knee pain, however currently patient states that this is a chronic problem and he sees Dr. Johnathan Washington as an outpatient for osteoarthritis. Xrays in the ER showed severe osteoarthritis, and no fractures. Patient denies pain anywhere else in the body. Fracture is suspected to be pathologic, based on the mechanism of injury. Today is post-operative day #12. 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 Lacy following for evaluation and recommendations. Computed tomography scan of chest, abdomen, and pelvis performed which showed a possible mass in the right lung. Pulmonary medicine has been consulted. Radiation oncology consulted, palliative radiation to right femur planned once wound healing occurs. Patient states pain is well controlled currently. Per patient, he has not been up with therapy today or yesterday. He notes he's been having trouble putting weight on the right lower extremity with therapy, he experiences pain and instability. Patient is still experiencing drainage from the operative site. He denies fevers, chills, chest pain, shortness of breath. He denies any new orthopedic complaints today. Vital signs stable. Objective - Vital Signs Vital signs: Vital Signs Temp 98.8 F 07/07/18 07:53 Pulse 60 07/07/18 07:53 Resp 16 07/07/18 07:53 BP 130/50 07/07/18 07:53 Pulse Ox 96 07/07/18 07:53 Intake & Output 07/06/18 07/07/18 07/07/18 18:59 06:59 18:59 Intake Total 100 250 100 Output Total 750 400 Balance 100 -500 -300 Intake: Intake, IV Titration 100 100 Amount Doxycycline 100 mg In 100 100 Sodium Chloride 0.9% 100 ml @ 100 mls/hr IVPB Q12HR [facility] Rx#:[id number] Oral 250 Output: Urine 750 400 Other: Voiding Method Urinal Urinal # Voids 2 # Bowel Movements 1 - Exam On exam, the patient is resting in bed in no acute distress. Patient is alert and oriented x3. On inspection of the right hip, there is a dressing in place with yellow, serous drainage present. Dressing is taken down and surgical incisions show no signs of infection, there is no erythema, warmth, or fluctuance. Active drainage of yellow, clear serous fluid from incision sites. Patient has full range of motion of the ankles and toes bilaterally. Dorsalis pedis pulse +2 bilaterally. Neurovascular is intact of the lower extremities bilaterally. Lower extremity compression cuffs in place bilaterally. - Labs CBC & Chem 7: 07/07/18 06:21 07/07/18 06:21 Labs: Abnormal Lab Results - Last 24 Hours (Table) 07/07/18 07/07/18 Range/Units 06:21 06:21 WBC 17.5 H (3.8-10.6) k/uL RBC 2.53 L (4.30-5.90) m/uL Hgb 8.4 L (13.0-17.5) gm/dL Hct 26.1 L (39.0-53.0) % MCV 103.2 H (80.0-100.0) fL RDW 18.9 H (11.5-15.5) % BUN 22 H (9-20) mg/dL Assessment and Plan Assessment: Right subtrochanteric femur fracture status-post operative fixation with long intramedullary hip nail Metastatic adenocarcinoma Chronic kidney disease Plan: - Toe-touch weight bearing of the right lower extremity. Ice and elevate right hip for pain and swelling control. Up with therapy, up with a walker. - Continue prophylactic antibiotics while right hip incision continues to drain serous fluid. Dressing changes once dressing becomes saturated. - Continue current pain management. Will defer post-operative anticoagulation to medicine. - Physical therapy for gait and balance training. - Pathology report on right femur reamings positive for metastatic adenocarcinoma, primary unknown at this time. Oncology following. - CT of chest, abdomen, and pelvis revealed possible lung mass, pulmonary medicine consulted and are planning on a bronchoscopy later this week for biopsy. - Patient discussed with Dr. Vazquez.
--- NOTE | 2018-07-07 11:54 | P.PN ---
Subjective Patient sitting in chair at bedside. Patient much improved from last visit. Patient clear medically for transfer to extended care [facility] Objective - Vital Signs Vital signs: Vital Signs Temp 98.8 F 07/07/18 07:53 Pulse 60 07/07/18 07:53 Resp 16 07/07/18 07:53 BP 130/50 07/07/18 07:53 Pulse Ox 96 07/07/18 07:53 Intake & Output 07/06/18 07/07/18 07/07/18 18:59 06:59 18:59 Intake Total 100 250 100 Output Total 750 400 Balance 100 -500 -300 Intake: Intake, IV Titration 100 100 Amount Doxycycline 100 mg In 100 100 Sodium Chloride 0.9% 100 ml @ 100 mls/hr IVPB Q12HR [facility] Rx#:[id number] Oral 250 Output: Urine 750 400 Other: Voiding Method Urinal Urinal # Voids 2 # Bowel Movements 1 - Constitutional General appearance: Present: mild distress - EENT Eyes: Present: PERRLA Ears: bilateral: normal - Neck Neck: Present: normal ROM - Respiratory Respiratory: bilateral: CTA - Cardiovascular Rhythm: regular - Gastrointestinal General gastrointestinal: Present: soft - Integumentary Integumentary: Present: normal - Neurologic Neurologic: Present: CNII-XII intact - Musculoskeletal Musculoskeletal: Present: generalized weakness - Labs CBC & Chem 7: 07/07/18 06:21 07/07/18 06:21 Labs: Abnormal Lab Results - Last 24 Hours (Table) 07/07/18 07/07/18 Range/Units 06:21 06:21 WBC 17.5 H (3.8-10.6) k/uL RBC 2.53 L (4.30-5.90) m/uL Hgb 8.4 L (13.0-17.5) gm/dL Hct 26.1 L (39.0-53.0) % MCV 103.2 H (80.0-100.0) fL RDW 18.9 H (11.5-15.5) % BUN 22 H (9-20) mg/dL - Imaging and Cardiology Chest x-ray: report reviewed Assessment and Plan Plan: Assessment Right hip intertrochanter fracture pathological adenocarcinoma Acute blood loss anemia anticipated but symptomatic Acute kidney injury secondary to diuretics Bactrim Leukocytosis Atrial fibrillation paroxysmal History of prostate cancer colon cancer Hyperlipidemia Hypertension History of cardiomyopathy with pacemaker Congestive heart failure chronic diastolic Metabolic acidosis secondary to renal failure Hyperkalemia Lung lesion with pleural effusion Postoperative pneumonia Metastatic bone cancer to ribs and lungs positive CA 199 Plan radiation therapy in the future PET scan Transfer to [facility] Patient medically cleared for discharge tomorrow
--- NOTE | 2018-07-07 14:18 | P.PN ---
Subjective Progress Note Date: 07/07/18 Principal diagnosis: Right upper lobe mass, rule out primary lung cancer, recent bone biopsy of the right pathologic femur fracture, biopsy positive for adenocarcinoma GI or lung primary This is a 88-year-old white male patient who was admitted to the hospital on , patient recently had a fractured right hip and underwent pinning. The fracture was thought to be pathologic and bone biopsy revealed adenocarcinoma with GI or lung primary. Patient was also found to have 1.8-2 cm lesion in the extreme right upper lobe, CT of the chest, abdomen and pelvis also showed bilateral pleural effusions and cardiomegaly. Just on the chest revealed a 5.3 left pleural effusion pocket. We have been asked to see the patient for possibility of biopsy of the right upper lobe lesion. Patient is progressing well after surgery, today he seen sitting up in the chair, in no acute distress, he has been up with the help of a walker and staff. His pain is controlled at rest. Currently on room air, his pulse ox is 96%, he is afebrile, hemodynamically patient is stable, lung sounds are clear to auscultation. Today's labs have been reviewed, white blood cell count of 17.5, hemoglobin is 8.4, electrolytes were within normal limits, BUN is 22, creatinine is 1.04. No fever or chills. No respiratory distress. No cough, no chest congestion. No chest pain. Objective - Vital Signs Vital signs: Vital Signs Temp 98.8 F 07/07/18 07:53 Pulse 60 07/07/18 07:53 Resp 16 07/07/18 07:53 BP 130/50 07/07/18 07:53 Pulse Ox 96 07/07/18 07:53 Intake & Output 07/06/18 07/07/18 07/07/18 18:59 06:59 18:59 Intake Total 100 250 100 Output Total 750 400 Balance 100 -500 -300 Weight 80.739 kg Intake: Intake, IV Titration 100 100 Amount Doxycycline 100 mg In 100 100 Sodium Chloride 0.9% 100 ml @ 100 mls/hr IVPB Q12HR [facility] Rx#:[id number] Oral 250 Output: Urine 750 400 Other: Voiding Method Urinal Urinal # Voids 2 # Bowel Movements 1 - Exam GENERAL EXAM: Alert, pleasant, 88-year-old white male, sitting up in the recliner, on room air, comfortable in no apparent distress. HEAD: Normocephalic/atraumatic. EYES: Normal reaction of pupils, equal size. Conjunctiva pink, sclera white. NOSE: Clear with pink turbinates. THROAT: No erythema or exudates. NECK: No masses, no JVD, no thyroid enlargement, no adenopathy. CHEST: No chest wall deformity. Symmetrical expansion. LUNGS: Equal air entry with no crackles, wheeze, rhonchi or dullness. CVS: Regular rate and rhythm, normal S1 and S2, no gallops, no murmurs, no rubs ABDOMEN: Soft, nontender. No hepatosplenomegaly, normal bowel sounds, no guarding or rigidity. EXTREMITIES: No clubbing, no edema, no cyanosis, 2+ pulses and upper and lower extremities. MUSCULOSKELETAL: Muscle strength and tone normal. SPINE: No scoliosis or deformity SKIN: No rashes CENTRAL NERVOUS SYSTEM: Alert and oriented -3. No focal deficits, tone is normal in all 4 extremities. PSYCHIATRIC: Alert and oriented -3. Appropriate affect. Intact judgment and insight. - Labs CBC & Chem 7: 07/07/18 06:21 07/07/18 06:21 Labs: Abnormal Lab Results - Last 24 Hours (Table) 07/07/18 07/07/18 Range/Units 06:21 06:21 WBC 17.5 H (3.8-10.6) k/uL RBC 2.53 L (4.30-5.90) m/uL Hgb 8.4 L (13.0-17.5) gm/dL Hct 26.1 L (39.0-53.0) % MCV 103.2 H (80.0-100.0) fL RDW 18.9 H (11.5-15.5) % BUN 22 H (9-20) mg/dL Assessment and Plan Plan: Assessment: #1. Right upper lobe mass, measuring 1.8-2 cm, rule out malignancy/primary lung cancer #2. Pathologic femur fracture of the right hip, status post surgical stabilization, with recent bone biopsy of the femur showing evidence of adenocarcinoma thought to be related to either gastrointestinal and/or lung primary #3. History of colon cancer #4. History of prostate cancer #5. History of atrial fibrillation, post permanent pacemaker insertion #6. GERD #7. Hypertension, hyperlipidemia #8. DJD #9. History of cataracts Plan: We will obtain a PET scan on an outpatient basis, if the right upper lobe mass shows increased uptake, proceed with biopsy of the lesion. This was discussed with medical oncology, patient is likely to go to rehab after discharge, we will follow up on outpatient basis. I performed a history & physical examination of the patient and discussed their management with my nurse practitioner, Anjana Hughes. I reviewed the nurse practitioner's note and agree with the documented findings and plan of care. Lung sounds are positive for clear lung sounds, diminished at the bases. The findings and the impression was discussed with the patient. I attest to the documentation by the nurse practitioner. Time with Patient: Less than 30
--- NOTE | 2018-07-07 17:29 | P.PN ---
Subjective Progress Note Date: 07/07/18 Principal diagnosis: pathological hip fracture, cancer unknown primary In f/u today pt c/o mild right hip discomfort, no numbness, tingling or progressive swelling in the leg. Appetite is fair, no nausea, mild SOB on exertion, weakness. Objective - Vital Signs Vital signs: Vital Signs Temp 98.0 F 07/07/18 14:46 Pulse 60 07/07/18 14:46 Resp 16 07/07/18 14:46 BP 144/60 07/07/18 14:46 Pulse Ox 96 07/07/18 14:46 Intake & Output 07/06/18 07/07/18 07/07/18 18:59 06:59 18:59 Intake Total 100 250 100 Output Total 750 400 Balance 100 -500 -300 Weight 80.739 kg Intake: Intake, IV Titration 100 100 Amount Doxycycline 100 mg In 100 100 Sodium Chloride 0.9% 100 ml @ 100 mls/hr IVPB Q12HR [facility] Rx#:[id number] Oral 250 Output: Urine 750 400 Other: Voiding Method Urinal Urinal # Voids 2 # Bowel Movements 1 - Constitutional General appearance: Present: average body habitus, cooperative, no acute distress - EENT Eyes: Present: anicteric sclerae, EOMI - Respiratory Respiratory: bilateral: CTA, diminished - Cardiovascular Heart sounds: normal: S1, S2 - Peripheral edema leg Peripheral Edema: right: Trace, left: None - Gastrointestinal General gastrointestinal: Present: normal bowel sounds, soft - Integumentary Integumentary: Present: pale - Neurologic Neurologic: Present: CNII-XII intact - Musculoskeletal Musculoskeletal: Present: generalized weakness - Psychiatric Psychiatric: Present: A&O x's 3, appropriate affect, intact judgment & insight - Labs CBC & Chem 7: 07/07/18 06:21 07/07/18 06:21 Labs: Abnormal Lab Results - Last 24 Hours (Table) 07/07/18 07/07/18 Range/Units 06:21 06:21 WBC 17.5 H (3.8-10.6) k/uL RBC 2.53 L (4.30-5.90) m/uL Hgb 8.4 L (13.0-17.5) gm/dL Hct 26.1 L (39.0-53.0) % MCV 103.2 H (80.0-100.0) fL RDW 18.9 H (11.5-15.5) % BUN 22 H (9-20) mg/dL Assessment and Plan (1) Pathological fracture Narrative/Plan: S/P Orthopedic intervention. Pt will have radiation to hip after 2-3 weeks of healing post op, case discussed with Rad Onc. Upper GI/pancreatobiliary vs lung primary are discussed in path report. Case discussed with Pulmonary. Plan is for PET scan outpatient to determine if the lung module is hypermetabolic. We will schedule PET. If PET avid then biopsy will be planned and scheduled at that time. Pt and his medical decision maker agree with plan of care Current Visit: Yes Status: Acute Priority: High Code(s): M84.40XA - PATHOLOGICAL FRACTURE, UNSP SITE, INIT ENCNTR FOR FRACTURE SNOMED Code(s): 764638282
[2018-07-07] MEDS: HYDROcodone/APAP 5-325MG 1 EACH TAB PO PRN (22:26)
[2018-07-07] MEDS: SENNOSIDES-DOCUSATE SODIUM 1 EACH TAB PO SCH (22:27)
[2018-07-07] MEDS: ATORVASTATIN 10 MG TAB PO SCH (22:27)
[2018-07-08] MEDS: CALCIUM CARBONATE 500 MG CHEWABLE PO SCH ×2 (07:57→13:07)
[2018-07-08] MEDS: MIDODRINE 5 MG TAB PO SCH (07:57)
[2018-07-08] MEDS: methylPREDNISolone 4 MG TAB TAPER PO SCH (10:20)
[2018-07-08] MEDS: SODIUM BICARBONATE TAB 650 MG TAB PO SCH (10:20)
[2018-07-08] MEDS: PANTOPRAZOLE 40 MG TABLET PO SCH (10:20)
[2018-07-08] MEDS: METOPROLOL SUCCINATE (ER) 100 MG TAB.ER.24H PO SCH (10:20)
[2018-07-08] MEDS: EDOXABAN TOSYLATE 30 MG TABLET PO SCH (10:21)
[2018-07-08] MEDS: DOXYCYCLINE 100 MG in SODIUM CHLORIDE 0.9% 100 ML IVPB SCH (10:27)
--- NOTE | 2018-07-08 11:32 | P.PN ---
Subjective Progress Note Date: 07/08/18 Patient is an 88-year-old male past medical history of atrial fibrillation with pacemaker on Savaysa, history of colon cancer, hyperlipidemia, hypertension, osteoarthritis presented to the ER 06/24/18 with complaints of right hip pain. Patient states he was walking up his stairs at home when he turned suddenly and felt a pop and a crack in his hip. He states he could not continue walking and had to call to his friend for help, who helped him down on the stairs. Patient then immediately called EMS for help, the patient was brought to [facility] ER for further evaluation and treatment. On presentation to the ER the patient was found to have a right displaced subtrochanteric femur fracture. The patient also noted right knee pain, however currently patient states that this is a chronic problem and he sees Dr. Johnathan Washington as an outpatient for osteoarthritis. Xrays in the ER showed severe osteoarthritis, and no fractures. Patient denies pain anywhere else in the body. Fracture is suspected to be pathologic, based on the mechanism of injury. Today is post-operative day #13. 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 Lacy following for evaluation and recommendations. Computed tomography scan of chest, abdomen, and pelvis performed on 07/02/18 which showed a possible mass in the right lung. Radiation oncology and pulmonary medicine following. Patient states pain is well controlled currently. Per patient, he has been having difficulty transferring with therapy to the chair. Patient is still experiencing drainage from the operative site. He states that he has been having pain in the right knee, there was no injury. He does note that he has a history of osteoarthritis in this knee, and he experiences pain in his knee regularly. He denies fevers, chills, chest pain, shortness of breath. Denies numbness or tingling of the right lower extremity. Vital signs stable. Objective - Vital Signs Vital signs: Vital Signs Temp 98.0 F 07/08/18 07:24 Pulse 60 07/08/18 07:24 Resp 14 07/08/18 07:24 BP 142/54 07/08/18 07:24 Pulse Ox 97 07/08/18 07:24 Intake & Output 07/07/18 07/08/18 07/08/18 18:59 06:59 18:59 Intake Total 100 840 Output Total 400 650 Balance -300 190 Weight 80.739 kg Intake: Intake, IV Titration 100 100 Amount Doxycycline 100 mg In 100 100 Sodium Chloride 0.9% 100 ml @ 100 mls/hr IVPB Q12HR [facility] Rx#:[id number] Oral 740 Output: Urine 400 650 Other: Voiding Method Urinal Urinal # Voids 1 # Bowel Movements 1 - Exam On exam, the patient is resting in bed in no acute distress. Patient is alert and oriented x3. On inspection of the right hip, there is a dressing in place with yellow, serous drainage present. Dressing is taken down and surgical incisions show no signs of infection, there is no erythema, warmth, or fluctuance. There is no active drainage from incision sites. Patient has full range of motion of the ankles and toes bilaterally. There is no pain on palpation of the right knee, there is no erythema, ecchymosis, or swelling of the right knee. There is no pain to passive range of motion of the right knee. Dorsalis pedis pulse +2 bilaterally. Neurovascular is intact of the lower extremities bilaterally. Lower extremity compression cuffs in place bilaterally. - Labs CBC & Chem 7: 07/07/18 06:21 07/07/18 06:21 Assessment and Plan Assessment: Right subtrochanteric femur fracture status-post operative fixation with long intramedullary hip nail Metastatic adenocarcinoma Chronic kidney disease Plan: - Toe-touch weight bearing of the right lower extremity. Ice and elevate right hip for pain and swelling control. Up with therapy, up with a walker. - Continue prophylactic antibiotics due to continued drainage from incision site. Dressing changes once dressing becomes saturated. - Continue current pain management. Will defer post-operative anticoagulation to medicine. - Physical therapy for gait and balance training. - Pathology report on right femur reamings positive for metastatic adenocarcinoma, primary unknown at this time. Oncology following. Radiation oncology also following, planning for palliative radiation to the right femur once wound healing occurs. - CT of chest, abdomen, and pelvis revealed possible lung mass, pulmonary medicine following. It is planned to do a PET scan on an outpatient basis, and biopsy will be performed if PET scan shows increased uptake at the right lung mass. Possible discharge to rehab with the next few days. - Patient discussed with Dr. Vazquez.
[2018-07-08] MEDS: CEPHALEXIN 500 MG CAP PO SCH (11:34)
--- NOTE | 2018-07-08 12:51 | P.DS ---
Providers Date of admission: 06/23/18 23:42 Expected date of discharge: 07/08/18 Attending physician: Lobo Burch Consults: 06/23/18 23:29 Consult Physician Routine Consulting Provider: Lobo Burch Consult Reason/Comments: medical management Do you want consulting provider notified?: Already Contacted 06/24/18 11:21 Consult Physician Urgent Consulting Provider: Sue Curry Consult Reason/Comments: surgical clearance cardiomyopathy Do you want consulting provider notified?: Yes 06/24/18 11:22 Consult Physician Urgent Consulting Provider: Tito Carmichael Consult Reason/Comments: renal failure acute hyperkalemia surgical clearance Do you want consulting provider notified?: Yes 07/02/18 07:25 Consult Physician Routine Consulting Provider: Dereck Lacy Consult Reason/Comments: oncology - metastatic adenocarcinoma Do you want consulting provider notified?: Yes 07/03/18 09:44 Consult Physician Routine Consulting Provider: Rubio Reynoso Consult Reason/Comments: pathologic rt femur fracture Do you want consulting provider notified?: Yes 07/04/18 14:10 Consult Physician Urgent Consulting Provider: Edward Pires Consult Reason/Comments: pneumonia Do you want consulting provider notified?: Yes Primary care physician: Lobo Burch Hospital Course: 88-year-old male was admitted through the emergency room with report of fractured to the right hip. Patient was found to have right femoral metastatic adenocarcinoma. Consultation was done with oncology patient will follow-up outpatient for PET scan. Patient will have radiation treatment in 3 weeks after hip is healed. Patient was found to have lung lesions and pleural effusion was evaluated by pulmonology. Patient also developed acute renal failure patient was evaluated and treated by nephrology and this is resolved. Patient was evaluated for preoperative consultation with cardiology regarding cardiomyopathy. Patient is now cleared to be transferred to [facility] for rehabilitation Assessment Right hip intertrochanter fracture pathological with a positive metastatic disease Anemia associated with surgery expected but symptomatic patient was transfused with 2 units Acute kidney injury secondary to diuretics and Backstrom resolved Atrial fibrillation controlled patient has a pacemaker cardiomyopathy History of prostate cancer and colon cancer Hypertension hyperlipidemia hyperkalemia corrected Postoperative pneumonia on Keflex Plan Palliative radiation treatment to right hip in 3-4 weeks PET scan postop Patient will continue Keflex for 2 weeks Patient is to follow-up with Dr. Lacy and an orthopedic surgeon Plan transferred to [facility] for rehabilitation Patient Condition at Discharge: Fair Plan - Discharge Summary Discharge Rx Participant: Yes New Discharge Prescriptions: New Acetaminophen Tab [Tylenol] 650 mg PO Q6HR PRN tab PRN Reason: Mild Pain Or Fever > 100.5 Calcium Carbonate [Tums] 500 mg PO TID-W/MEALS chew Cephalexin [Keflex] 500 mg PO BID cap Edoxaban Tosylate [Savaysa] 30 mg PO DAILY tablet Ergocalciferol [Vitamin D2 (DRISDOL)] 50,000 unit PO Q72H cap Magnesium Hydroxide [Milk of Magnesia Concentrate] 2,400 mg PO DAILY PRN ml PRN Reason: Constipation Sennosides-Docusate Sodium [Senokot-S] 2 each PO HS tab Sodium Bicarbonate Tab 1,300 mg PO BID tab Continue Ranitidine HCl [Zantac] 150 mg PO BID Atorvastatin Calcium [Lipitor] 10 mg PO HS Aspirin EC [Ecotrin Low Dose] 81 mg PO [id number]@2100 Cholecalciferol [Vitamin D3] 1,000 unit PO PC-LUNCH [place]-3 Fatty Acids/Fish Oil [Fish Oil 1,000 mg Softgel] 1 cap PO PC-LUNCH Multivitamin [Men's Multi-Vitamin] 1 tab PO PC-LUNCH Metoprolol Succinate [Toprol XL] 100 mg PO QAM Cranberry Fruit Extract [Cranberry] 500 mg PO PC-LUNCH Discontinued Spironolactone [Aldactone] 25 mg PO QAM Lisinopril [Zestril] 5 mg PO BID Furosemide 20 mg PO QAM Sulfamethox-Tmp 800-160Mg [Bactrim DS 800-160 mg] 1 tab PO Q12H Edoxaban Tosylate [Savaysa] 60 mg PO DAILY Discharge Medication List Aspirin EC [Ecotrin Low Dose] 81 mg PO MOWEFR@2100 09/25/14 [History] Atorvastatin Calcium [Lipitor] 10 mg PO HS 09/25/14 [History] Ranitidine HCl [Zantac] 150 mg PO BID 09/25/14 [History] Cholecalciferol [Vitamin D3] 1,000 unit PO PC-LUNCH 05/09/15 [History] Multivitamin [Men's Multi-Vitamin] 1 tab PO PC-LUNCH 05/09/15 [History] [place]-3 Fatty Acids/Fish Oil [Fish Oil 1,000 mg Softgel] 1 cap PO PC-LUNCH 05/09 [History] Cranberry Fruit Extract [Cranberry] 500 mg PO PC-LUNCH 11/10/15 [History] Metoprolol Succinate [Toprol XL] 100 mg PO QAM 11/10/15 [History] Acetaminophen Tab [Tylenol] 650 mg PO Q6HR PRN tab 07/01/18 [Rx] Calcium Carbonate [Tums] 500 mg PO TID-W/MEALS chew 07/01/18 [Rx] Cephalexin [Keflex] 500 mg PO BID cap 07/01/18 [Rx] Edoxaban Tosylate [Savaysa] 30 mg PO DAILY tablet 07/01/18 [Rx] Ergocalciferol [Vitamin D2 (DRISDOL)] 50,000 unit PO Q72H cap 07/01/18 [Rx] Magnesium Hydroxide [Milk of Magnesia Concentrate] 2,400 mg PO DAILY PRN ml [Rx] Sennosides-Docusate Sodium [Senokot-S] 2 each PO HS tab 07/01/18 [Rx] Sodium Bicarbonate Tab 1,300 mg PO BID tab 07/01/18 [Rx] Follow up Appointment(s)/Referral(s): Lobo Burch MD [Primary Care Provider] - 1-2 days Polina Holliday [NON-STAFF] - As Needed Titi Thao MD [STAFF PHYSICIAN] - 07/17/18 2:00 pm (Appt is at [facility]. Enter at [facility]. Appt is July at 2pm) Lauri Vazquez MD [Medical Doctor] - 07/21/18 1:35 pm Discharge Disposition: TRANSFER TO SNF/ECF
[2018-07-08] MEDS: CHOLECALCIFEROL 1,000 UNIT TAB PO SCH (13:06)
[2018-07-08 15:51] VITALS: PULSE 59; RESP 16; TEMP 98.1
[2018-07-08 15:53] VITALS: BP 150/56
== END 2018-07-08 16:11 | DRG 480 ==
LOC: EC 20:43 → 4SSUR 23:42
PROVIDERS: ADMIT Family Medicine; ATTEND Family Medicine
PROC: 0QS606Z Reposition Right Upper Femur with Intramedullary Internal Fixation Device, Open Approach (ICD-10-PCS; principal; 2018-06-25 15:30)
DX: M84.451A Pathological fracture, right femur, initial encounter for fracture (principal); N17.0 Acute kidney failure with tubular necrosis; J18.9 Pneumonia, unspecified organism; C79.51 Secondary malignant neoplasm of bone; D62 Acute posthemorrhagic anemia; E87.2 Acidosis; I13.0 Hypertensive heart and chronic kidney disease with heart failure and stage 1 through stage 4 chronic kidney disease, or unspecified chronic kidney disease; I42.8 Other cardiomyopathies; I47.2 Ventricular tachycardia; I48.1 Persistent atrial fibrillation; I50.32 Chronic diastolic (congestive) heart failure; T50.0X5A Adverse effect of mineralocorticoids and their antagonists, initial encounter; T50.2X5A Adverse effect of carbonic-anhydrase inhibitors, benzothiadiazides and other diuretics, initial encounter; X50.9XXA Other and unspecified overexertion or strenuous movements or postures, initial encounter; Y92.009 Unspecified place in unspecified non-institutional (private) residence as the place of occurrence of the external cause; C80.1 Malignant (primary) neoplasm, unspecified; D63.1 Anemia in chronic kidney disease; D50.9 Iron deficiency anemia, unspecified; E78.5 Hyperlipidemia, unspecified; E87.5 Hyperkalemia; I08.0 Rheumatic disorders of both mitral and aortic valves; I48.2 Chronic atrial fibrillation; J40 Bronchitis, not specified as acute or chronic; K21.9 Gastro-esophageal reflux disease without esophagitis; K86.89 Other specified diseases of pancreas; M19.90 Unspecified osteoarthritis, unspecified site; N18.3 Chronic kidney disease, stage 3 (moderate); Z79.01 Long term (current) use of anticoagulants; Z79.82 Long term (current) use of aspirin; Z79.899 Other long term (current) drug therapy; Z80.42 Family history of malignant neoplasm of prostate; Z85.038 Personal history of other malignant neoplasm of large intestine; Z85.46 Personal history of malignant neoplasm of prostate; Z87.891 Personal history of nicotine dependence; Z95.0 Presence of cardiac pacemaker; Z98.42 Cataract extraction status, left eye; Z98.41 Cataract extraction status, right eye; Z90.49 Acquired absence of other specified parts of digestive tract; Z90.79 Acquired absence of other genital organ(s); R91.1 Solitary pulmonary nodule; Z88.0 Allergy status to penicillin
CPT/HCPCS: 36410; 36415; 71045; 71260; 73502; 74177; 76604; 76770; 76937; 78306; 80048; 81001; 81003; 82306; 82533; 82728; 83540; 83550; 83735; 84132; 84153; 85025; 85027; 85610; 86301; 86704; 86705; 86803; 86850; 86900; 86901; 86920; 87086; 87340; 87535; 88305; 88311; 88341; 88342; 93005; 93306; 94760; 96374; 99285

== ENCOUNTER → 2018-08-02 | Outpatient (CLI) | payer MEDICARE ==
--- NOTE | 2018-08-02 13:39 | PE ---
EXAMINATION TYPE: PET CT fusion skull to thigh DATE OF EXAM: 08/02/2018 COMPARISON: CT chest abdomen and pelvis July 02, 2018 HISTORY: Pancreatic cancer initial staging study. TECHNIQUE: Following the intravenous administration of 13.533 mCi of F-18 FDG, whole body images are performed from the skull base to the midthigh. Images are reviewed on the computer in the coronal, axial, and sagittal planes. Reconstructed rotating images are created on independent workstation and reviewed on the computer. A localization and attenuation correction CT is performed in conjunction with the PET scan. SCAN: Initial Scan FINDINGS: SKULL BASE AND NECK: No suspicious hypermetabolic uptake. CHEST, MEDIASTINUM, AND HILAR REGION: From recent CT there is interval enlargement of posterior right upper lung nodule that is hypermetabolic, it measures 1.7 x 1.3 cm per study image 78, max SUV is 4. 28. There is persistent small to moderate size left pleural effusion fairly stable from prior. There is t iny right pleural effusion improved from prior. Bilateral gynecomastia is redemonstrated. There is hypermetabolic mass lateral right breast measuring 2.0 x 1.7 cm on axial image 125, max SUV is 5.2. ABDOMEN AND PELVIS: There is redemonstration of ductal dilatation in the mid to distal pancreatic bod y and tail though less prominent from recent CT near level of prominent vascular calcification. No ob vious mass or hypermetabolic uptake is seen at this level to identify primary pancreatic neoplasm. Pa ncreatic head and proximal body appear within normal limits without obvious mass. Normal excretion in the collecting system and bladder is poorly distended is identified. Numerous kaylie gical clips from prostatectomy are appreciated. OSSEOUS STRUCTURES: Hypermetabolic metastatic disease is confirmed as suspected. There is hypermetabo lic focus anterior mid cervical vertebra axial image [address] correlate, max SUV is 6 .1. There is destructive lytic hypermetabolic mass lateral left mid to lower rib axial image 133, max SUV is 5.39. Subtle hypermetabolic focus lower right lateral rib near image 163 favors rib etiology vers us adjacent liver as no suspicious masses are clearly seen. There are hypermetabolic lytic lesions at area of ossific fusion L2 and L3 vertebra with max SUV of 7 .89. Metallic hardware from right proximal femur surgery is partially imaged. There is asymmetric enlargem ent of right-sided muscles with mild to moderate subcutaneous edema and air laterally remaining prese nt. Diffuse hypermetabolic uptake is noted. Findings presumed pathologic fracture given the marked hy permetabolic uptake. Findings confirmed on presurgical CT June 24, 2018. OTHER CT: Moderate to severe calcified plaque bilateral carotid bulb level, left greater than right i s present. There is diffuse cerebral atrophy and chronic small vessel ischemic change redemonstrated, there is a symmetric left frontal lobe atrophy or possible anterior arachnoid cyst, this is stable from [address] Cardiomegaly with multi lead pacemaker is redemonstrated. Coronary artery calcification is seen which is noted marker for underlying coronary artery disease. Multiple a metabolic hypodense lesions throughout the liver are felt to reflect simple thin-walled cy st. Fecal prominence and rectum is noted. There are surgical sutures near hepatic flexure. No suspicious bowel dilatation is seen. Underlying mild to moderate colonic fecal stasis felt present. Surgical clips bilateral groin region are seen. IMPRESSION: 1. Primary pancreatic neoplasm not well identified. Ductal dilatation with abrupt cut off noted. Osse ous metastatic disease redemonstrated as detailed above. Suspicious enlarging hypermetabolic posterio r right upper lung nodule likely reflecting metastatic focus noted. Suspicious lateral hypermetabolic right breast mass could reflect primary or metastatic cancer.
== END | disposition home or self-care (01) ==
LOC: RADPETMAIN 10:36
PROVIDERS: ATTEND Internal Medicine Hematology & Oncology
DX: C25.3 Malignant neoplasm of pancreatic duct (principal); C79.51 Secondary malignant neoplasm of bone
CPT/HCPCS: 78815; A9552